=== PATIENT | male | born 1945 | race Caucasian/White ===

== ENCOUNTER 2020-07-14 21:59 | Inpatient (IN) | payer MEDICARE, SELFPAY ==
--- NOTE | ~2020-07-14 | XR_ITS ---
XR chest ET placement 07/14/2020 23:26 Indication: Respiratory distress. Patient intubation. Procedure: AP portable chest Comparison: No prior studies for comparison. Findings: Endotracheal tube tip 7.4 cm above the enma. Heart size normal. There is atherosclerosis. Mild pulmonary vascular congestion. No significant pleural effusion or pneumothorax. No acute osseou s abnormality. Impression: 1: Mild pulmonary vascular congestion. Reviewed, dictated and finalized at location A. Impression: 1: Mild pulmonary vascular congestion.
--- NOTE | ~2020-07-14 | XR_ITS ---
EXAMINATION: XR abdomen NG/feed tube insert DATE: 07/15/2020 01:30 INDICATION: Nasogastric tube placement TECHNIQUE: A supine view of the abdomen and lower chest was obtained for evaluation of feeding tube placement. COMPARISON: None. FINDINGS: Nasogastric tube tip in the body of the gas-filled stomach. Proximal side-port likely at the distal e sophagus. Gas-filled large and small bowel the visualized upper abdomen in a nonspecific bowel gas pa ttern. Visualized portions of the lungs are clear. Heart size is normal. IMPRESSION: 1. Nasogastric tube tip in the stomach. Reviewed, dictated and finalized at location A.
--- NOTE | ~2020-07-14 | XR_ITS ---
EXAMINATION: XR abdomen obstructive series DATE: 07/15/2020 08:14 INDICATION: This versus small bowel obstruction. TECHNIQUE: Frontal supine and upright views of the abdomen were obtained. COMPARISON: None. FINDINGS: Nasogastric tube tip in proximal side port in the body of the stomach. No dilated gas-filled loops of bowel. No free intraperitoneal gas. Visualized mid to lower lungs are clear. Heart size is normal. Postoperative changes with multiple clips project over the right pelvis in location suggesting prior inguinal hernia repair. Chronic proximal right femoral fracture with incompletely visualized antegra de intramedullary jayson and interlocking femoral neck screw fixation. Moderate to severe lumbar spondyl osis. Mild to moderate bilateral hip and sacroiliac osteoarthritis. IMPRESSION: 1. No free intraperitoneal gas or dilated gas-filled loops of bowel to suggest obstruction. Reviewed, dictated and finalized at location A.
--- NOTE | ~2020-07-14 | XR_ITS ---
EXAMINATION: XR chest ET placement DATE: 07/15/2020 02:31 INDICATION: Endotracheal tube placement TECHNIQUE: frontal view of the chest was obtained. COMPARISON: Chest radiograph dated 07/14/2020 at 11:25 PM FINDINGS: Endotracheal tube has been advanced with tip now 4.2 cm above the enma. Nasogastric tube extends b elow the left hemidiaphragm with distal tip collimated off the study. Skinfold projects over the late ral left lung. A few small calcified nodules in the right lower lung zone consistent with old granulo matous disease. No focal airspace opacities, pulmonary edema, pleural effusion or pneumothorax. The c ardiomediastinal silhouette is normal. IMPRESSION: 1. Endotracheal tube tip 4.2 cm above the enma. 2. No acute cardiopulmonary disease. Reviewed, dictated and finalized at location A.
--- NOTE | ~2020-07-14 | CT_ITS ---
EXAMINATION: CT brain wo con DATE: 07/14/2020 23:13 INDICATION: Unresponsive. TECHNIQUE: Computed tomography (CT) of the head was performed without intravenous contrast. The dose- length product was 681.00 mGy-cm. The mA was adjusted according to patient size. Iterative reconstruc tion technique was employed. COMPARISON: None FINDINGS: Generalized atrophy. There are scattered mild periventricular and subcortical white matter changes, most likely related to small vessel ischemic disease (microangiopathy). There is intracrania l atherosclerosis. Chronic left lacunar infarction involving the lentiform nucleus. Basilar cisterns are patent. No ventriculomegaly or midline shift. Paranasal sinuses and mastoids are pneumatized. No depressed skull fractures. IMPRESSION: 1. No acute intracranial abnormality. 2: Chronic left lacunar infarction. 3: Chronic age-related findings. Reviewed, dictated and finalized at location A.
--- NOTE | 2020-07-14 22:00 | PC.NURSE ---
On arrival pt having seizure activity. 2 mg ativan given per verbal order at 2200. MD exchanged ET tube for size 8Fr. 20mcg Etomadate and 50 mg Rocuronium per MD order for intubation at 2204. Propofol infusion started for sedation and griffin catheter placed per MD order. Pts daughter arrived at bedside.
--- NOTE | 2020-07-14 22:09 | ECG_ITS ---
Measurements Intervals [place] Rate: 105 P: 86 KS: 221 QRS: 69 QRSD: 81 T: 72 QT: 351 QTc: 465 Interpretive Statements SINUS TACHYCARDIA WITH FIRST DEGREE AV BLOCK FREQUENT ATRIAL PREMATURE COMPLEXES BORDERLINE ST ABNORMALITY- ANTEROLATERAL LEADS BASELINE ARTIFACT- V1-V2 ABNORMAL ECG Electronically Signed On 07-15-2020 7:39:06 CDT by Dariusz Villa D.O.
--- NOTE | 2020-07-14 22:09 | ED.AMS ---
HPI - Altered Mental Status General Chief Complaint: Altered Mental Status Stated Complaint: unresponsive History of Present Illness HPI narrative: History limited by unresponsive patient and acuity of medical condition He was at home drinking an alcoholic beverage when family noted that he leaned back and they thought he was sleeping. He may have had some seizure like activity. Per EMS HE was unresponsive on the way here and respiration became labored and they placed a Luis Carlos tube. Related Data Home Medications Medication Instructions Recorded Confirmed amlodipine 2.5 PO DAILY 07/14/20 pantoprazole 40 PO DAILY 07/14/20 ruxolitinib 10 mg BID 07/14/20 tamsulosin 0.4 mg PO DAILY 07/14/20 Allergies Allergy/AdvReac Type Severity Reaction Status Date / Time No Known Allergies Allergy Verified 07/14/20 22:34 Review of Systems Review of Systems: ROS unobtainable: Yes unobtainable due to medical condition and unobtainable due to mental status Exam Const: General: ill appearing chronically Other: Severe distresss HENMT: Other: Luis Carlos tube in place Eyes: Pupils: Equal, round and reactive pupils present Other: Eyes deviated to the Resp: Other: diminished breath sounds Cardio: Rate: tachycardic Rhythm: regular rhythm GI: GI Palp: Yes Soft to palpation Skin: General skin exam: normal color Neuro: Other: Unresponsive Extrem: General: no edema Course Course Emergency Course: ET tube advanced 4 cm after x-ray. Vital Signs Vital signs: Vital Signs Pulse Rate 129 H 07/14/20 22:20 Pulse Oximetry 100 07/14/20 22:20 Temperature 36.6 C 07/14/20 22:21 Pulse Rate 112 H 07/14/20 22:58 Respiratory Rate 20 07/14/20 22:58 Blood Pressure 143/99 H 07/14/20 22:58 Pulse Oximetry 100 07/14/20 22:58 Procedures Intubation Intubation #1: Intubation Date: 07/14/20 Intubation Time: 22:10 sedative: Etomidate Mg Given: 20 paralytic: Rocuronium Mg Given: 50 Laryngoscope: Tyra Tube Size (cm): Cuffed Method of Intubation: orotracheal Number of Attempts: 1 Tube Secured Location: lips Tube Placement Confirmation: visualized tube passing through cords, equal breath sounds bilaterally, no breath sounds over epigastrium and confirmation by capnometry Patient Tolerated Procedure: well Intubation Complications: none MDM - Altered Mental Status Medical Records Attestation: I reviewed the patient's medical records. Lab Data Attestation: I reviewed the patient's lab results. Result diagrams: 07/14/20 22:16 07/14/20 22:16 Labs: Lab Results 07/14/20 07/14/20 07/14/20 Range/Units 22:16 22:16 22:16 WBC 12.5 H (4.5-10.0) K/mm3 RBC 4.47 L (4.6-6.20) M/mm3 Hgb 10.2 L (14.0-18.0) g/dL Hct 36.0 L (42.0-52.0) % MCV 80.5 (80-100) fl MCH 22.8 L (26-34) pg MCHC 28.3 L (32-36) g/dl RDW 18.1 H (11.5-14.5) % Plt Count 572 H (150-375) k/mm3 MPV 10.2 (7.4-10.4) fl Immature Gran % (Auto) 0.8 H (0-0.5) % Neut % (Auto) 62.1 (45.5-73.1) % Lymph % (Auto) 19.5 (18.3-44.2) % Dodge % (Auto) 13.7 H (2.6-8.5) % Eos % (Auto) 2.5 (0-4.4) % Baso % (Auto) 1.4 H (0.2-1.2) % Lymph # (Auto) 2.44 (0.9-3.2) K/mm3 Dodge # (Auto) 1.7 H (0.1-0.6) K/mm3 Eos # (Auto) 0.3 (0-0.3) K/mm3 Baso # (Auto) 0.2 H (0.0-0.1) K/mm3 Abs Immat Gran (auto) 0.10 H (0.00-0.031) K/mm3 Absolute Neuts (auto) 7.8 H (1.3-6.7) K/mm3 Absolute Nucleated RBC 0.0 (0.0-0.012) K/mm3 Nucleated RBC % 0.0 (0.0-0.2) % Platelet Estimate Increased (Adequate) Hypochromasia 1+ (NORMAL) Anisocytosis 2+ (NORMAL) PT 14.1 (11.1-14.7) Seconds INR 1.1 APTT 25.5 (22.3-36.8) SECONDS Sodium 135 L (137-145) mmol/L Potassium 4.5 (3.4-5.0) mmol/L Chloride 99 (98-107) mmol/L Carbon Dioxide
[2020-07-14 22:13] VITALS: PULSE 129; RESP 20
[2020-07-14] MEDS: PROPOFOL IV EMULSION 100 ML 1.9 MG IV CONT (22:13)
[2020-07-14 22:20] VITALS: PULSE 129; O2SAT 100
[2020-07-14 22:21] VITALS: BP 175/118; PULSE 129; RESP 22; TEMP 36.6; O2SAT 100
[2020-07-14 22:27] LABS: Basophils Absolute Auto 0.2 K/mm3 (0.0-0.1); Basophils Percent Auto 1.4 % (0.2-1.2); Eosinophils Absolute Auto 0.3 K/mm3 (0-0.3); Eosinophils Percent Auto 2.5 % (0-4.4); Hemoglobin 10.2 g/dL (14.0-18.0); Immature Granulocyte Percent A 0.8 % (0-0.5); Lymphocytes Absolute Auto 2.44 K/mm3 (0.9-3.2); Lymphocytes Percent Auto 19.5 % (18.3-44.2); Mean Corpuscular HGB Conc 28.3 g/dl (32-36); Mean Corpuscular Hemoglobin 22.8 pg (26-34); Mean Corpuscular Volume 80.5 fl (80-100); Mean Platelet Volume 10.2 fl (7.4-10.4); Monocytes Absolute Auto 1.7 K/mm3 (0.1-0.6); Monocytes Percent Auto 13.7 % (2.6-8.5); Neutrophils Absolute Auto 7.8 K/mm3 (1.3-6.7); Neutrophils Percent Auto 62.1 % (45.5-73.1); Platelet Count Result 572 k/mm3 (150-375); Red Blood Count 4.47 M/mm3 (4.6-6.20); Red Cell Distribution Width 18.1 % (11.5-14.5); White Blood Count 12.5 K/mm3 (4.5-10.0)
[2020-07-14 22:30] VITALS: PULSE 120; RESP 20
[2020-07-14 22:33] LABS: INR 1.1; Partial Thromboplastin Time 25.5 SECONDS (22.3-36.8); Prothrombin Time 14.1 Seconds (11.1-14.7)
[2020-07-14 22:36] LABS: Ammonia 209 umol/L (9-30); Hypochromasia 1+ (NORMAL); Platelet Estimate Increased (Adequate)
[2020-07-14 22:36] LABS: Ethanol < 10 mg/dL (<10)
[2020-07-14 22:37] LABS: Anisocytosis 2+ (NORMAL)
[2020-07-14 22:40] LABS: Albumin Level 4.9 g/dL (3.5-5.1); Alkaline Phosphatase 72 U/L (38-126); Anion Gap 20 mmol/L (8-16); Aspartate Amino Transferase 43 U/L (17-59); Bilirubin,Total 0.6 mg/dL (0.2-1.3); Blood Urea Nitrogen 12 mg/dL (9-20); Calcium 8.9 mg/dL (8.4-10.2); Carbon Dioxide 16 mmol/L (22-30); Chloride 99 mmol/L (98-107); Estimated CRCL calculation 49 ml/min; Estimated Glomerular Filt Rate > 60; Glucose 242 mg/dL (75-110); Potassium 4.5 mmol/L (3.4-5.0); Sodium 135 mmol/L (137-145)
[2020-07-14 22:47] LABS: Alanine Aminotransferase 25 U/L (4-50)
[2020-07-14 22:58] VITALS: BP 143/99; PULSE 112; RESP 20; O2SAT 100
[2020-07-14 23:04] LABS: Glucose Point of Care 203 (65-105)
[2020-07-14 23:30] LABS: Add Urine Microscopic? YES; Appearance Urine Clear (Clear); Bacteria Urine Trace /hpf; Bilirubin Urine Negative (Negative); Blood Urine 1+ (Negative); Color Urine Straw (Yellow); Glucose Urine UA 2+ mg/dL (Negative); Ketones Urine Negative (Negative); Leukocyte Esterase Ur Negative LEU/UL (Negative); Mucus Urine Rare /lpf; Nitrate Urine Negative (Negative); Protein Urine 2+ mg/dL (Negative); RBC Urine 0-2 /hpf (0-2); Specific Grav Ur 1.012 (1.001-1.035); Squamous Epithelial Cell Urine Rare /hpf (Few); Urobilinogen Urine Negative mg/dL (<2.0); WBC Urine 0-3 /hpf
--- NOTE | 2020-07-14 23:39 | PM.IMHP ---
H&P: HPI History of Present Illness Date/Time: 07/14/20 23:39 Chief complaint: Acute respiratory failure, seizure, hyperamoniemia Narrative: This is a 74 year old male who was apparently at home drinking an alcoholic beverage when the family noticed that he was unresponsive. EMS was called and on arrival they found him with labored breathing. The patient was intubated on scene and brought to the hospital for evaluation. The patient was evaluated and found to have an elevated ammonia level of [address] brain was unremarkable for any acute pathology. There is no family at bedside and no further history is obtainable at this time. Research Recruiter, has been consulted. Review of Systems Review of Systems: ROS unobtainable: Yes unobtainable due to medical condition and unobtainable due to mental status PMFSH Past Medical History Medical History (Updated 07/15/20 @ 11:30 by Sachi Rivera MD) Alcohol abuse Alcohol abuse BPH (benign prostatic hyperplasia) COPD (chronic obstructive pulmonary disease) GERD (gastroesophageal reflux disease) Polycythemia vera Social History Social History Smoking packs per day: 1.5 Smoking cigarettes per day: 30.0 Years smoked: 60 Smoking pack-years: 90.00 Smoking status: Former smoker Smoking end date: 07/15/14 Alcohol intake: current Drinks per week: 20 Substance use: current Substance use type: painkillers Spiritual care concerns: No Comments Past medical/surgical/social/ family medical histories are unobtainable from the patient as the patient is intubated and sedated on mechanical ventilation. Meds Home Medications and Allergies Home Medications Medication Instructions Recorded Confirmed Type amlodipine 2.5 mg PO DAILY 07/14/20 07/15/20 History pantoprazole 40 mg PO DAILY 07/14/20 07/15/20 History ruxolitinib 10 mg PO BID 07/14/20 07/15/20 History tamsulosin 0.4 mg PO DAILY 07/14/20 07/15/20 History albuterol sulfate [Ventolin HFA] 1 inh INHALATION QID PRN 07/15/20 07/15/20 History Allergies Allergy/AdvReac Type Severity Reaction Status Date / Time No Known Allergies Allergy Verified 07/14/20 22:34 Vital Signs Vital Signs - 24 hr 07/14/20 22:20 07/14/20 22:21 07/14/20 22:58 Temperature 36.6 C Pulse Rate 129 H 129 H 112 H Respiratory Rate 22 H 20 Blood Pressure 175/118 H 143/99 H Pulse Oximetry 100 100 100 Exam Const: General: alert and other (Intubated on mechanical venatilation++ ) Nutritional Appearance: well nourished Orientation/consciousness: Other orientation findings (sedated on propofol+) HENMT: Head: normal to inspection General nose exam: Normal external nose present Face and sinus: normal facial exam Mouth: Yes other (ETT in place+ ) Eyes: Pupils: Equal, round and reactive pupils present Neck: Neck: supple and no JVD Thyroid: thyroid normal Resp: Effort & Inspection: normal respiratory effort Auscultation: bronchial breath sounds Cardio: Rate: regular rate Rhythm: regular rhythm Heart sounds: no murmurs GI: Inspection: normal to inspection Auscultation: normal bowel sounds Skin: General skin exam: normal color and no rashes or lesions noted Neuro: Cranial nerves: Yes Equal, round and reactive pupils present Extrem: General: normal to inspection and no edema H&P: Results Labs Labs: Short CBC 07/14/20 Range/Units 22:16 WBC 12.5 H (4.5-10.0) K/mm3 Hgb 10.2 L (14.0-18.0) g/dL Hct 36.0 L (42.0-52.0) % Plt Count 572 H (150-375) k/mm3 BMP 07/14/20 22:16 Sodium 135 L Potassium 4.5 Chloride 99 Carbon Dioxide 16 L BUN 12 Creatinine 1.00 Glucose 242 H Calcium 8.9 Liver Function 07/14/20 Range/Units 22:16 Total Bilirubin 0.6 (0.2-1.3) mg/dL AST 43 (17-59) U/L ALT 25 (4-50) U/L Alkaline Phosphatase 72 (38-126) U/L Albumin 4.9 (3.5-5.1) g/dL Urine 07/14/20 Range/Units 23:15 Urine Color Straw
[2020-07-14 23:43] LABS: Amphetamine Screen Urine Negative (Negative); Barbiturate Screen Urine Negative (Negative); Benzodiazepines Screen Urine Negative (Negative); Cannabinoid Screen Urine Negative (Negative); Cocaine Screen Urine Negative (Negative); Methadone Screen Urine Negative (Negative); Opiate Screen Urine Positive (Negative); Phencyclidine Screen Urine Negative (Negative)
[2020-07-15] VITALS (28 sets, daily range): BP systolic 77–122; BP diastolic 57–85; PULSE 66–108; RESP 5–21; TEMP 36.8–38; O2SAT 94–100; BMI 20.2
[2020-07-15] LABS: Troponin I 0.022 ng/mL (0.000-0.034)
[2020-07-15 00:18] LABS: Alveolar/Arterial O2 Gradient 208.6 mmHg; Base Excess ABG -7.6 mEq/l (+/-2.0); Fractional Inspired Oxygen 60 %; HCO3 ABG 17.6 mEq/l (22.0-26.0); Oxygen Content ABG 15.6 %vol (16.0-22.0); Oxygen Saturation ABG 99.1 % (95.0-100.0); Oxyhemoglobin 98.3 % THb (90.0-100.0); PCO2 ABG 34.8 mmHg (35.0-45.0); PO2 ABG 180.9 mmHg (80.0-100.0); PO2 FiO2 Ratio Arterial Blood 3.01 %; pH ABG 7.322 (7.350-7.450)
[2020-07-15 00:20] LABS: Device VENTILATOR; Site Drawn LEFT BRACHIAL
[2020-07-15 00:21] LABS: Arterial Blood Gas PEEP 5 cmH2O; Arterial Blood Gas Tidal Volume 400 ml; Arterial Blood Gas Vent Mode CMV; Arterial Blood Gas Ventilator rate 20 /MIN
[2020-07-15 00:23] LABS: Acetaminophen < 10 ug/mL (10-30); Magnesium 2.2 mg/dL (1.6-2.3); Phosphorus 4.7 mg/dL (2.5-4.5); Salicylate < 1.0 mg/dL (2-20)
[2020-07-15] MEDS: SODIUM CHLORIDE 0.9% IV 1,000 ML 999 ML IV CONT (01:03)
[2020-07-15] MEDS: LACTULOSE 20 GM/30 ML UDC 30 GM FEED TUBE ×2 (02:16→06:55)
[2020-07-15 02:17] LABS: Basophils Absolute Auto 0.1 K/mm3 (0.0-0.1); Basophils Percent Auto 0.6 % (0.2-1.2); Eosinophils Absolute Auto 0.1 K/mm3 (0-0.3); Eosinophils Percent Auto 0.4 % (0-4.4); Hematocrit 30.5 % (42.0-52.0); Hemoglobin 9.3 g/dL (14.0-18.0); Immature Granulocyte Absolute 0.05 K/mm3 (0.00-0.031); Immature Granulocyte Percent A 0.4 % (0-0.5); Lymphocytes Absolute Auto 0.69 K/mm3 (0.9-3.2); Lymphocytes Percent Auto 6.2 % (18.3-44.2); Mean Corpuscular HGB Conc 30.5 g/dl (32-36); Mean Corpuscular Hemoglobin 23.3 pg (26-34); Mean Corpuscular Volume 76.4 fl (80-100); Mean Platelet Volume 10.2 fl (7.4-10.4); Monocytes Absolute Auto 1.4 K/mm3 (0.1-0.6); Monocytes Percent Auto 12.4 % (2.6-8.5); Neutrophils Absolute Auto 8.9 K/mm3 (1.3-6.7); Platelet Count Result 414 k/mm3 (150-375); Red Blood Count 3.99 M/mm3 (4.6-6.20); White Blood Count 11.1 K/mm3 (4.5-10.0)
[2020-07-15 02:30] LABS: Hemoglobin A1C 5.3 % (<5.7)
[2020-07-15 02:33] LABS: Anion Gap 7 mmol/L (8-16); Blood Urea Nitrogen 13 mg/dL (9-20); Calcium 8.2 mg/dL (8.4-10.2); Carbon Dioxide 23 mmol/L (22-30); Chloride 103 mmol/L (98-107); Estimated CRCL calculation 49 ml/min; Estimated Glomerular Filt Rate > 60; Glucose 114 mg/dL (75-110); Sodium 133 mmol/L (137-145)
[2020-07-15] MEDS: LACTATED RINGERS 1,000 ML 125 ML IV CONT (02:38)
[2020-07-15 02:47] LABS: Glucose Point of Care 114 (65-105)
[2020-07-15 03:35] LABS: Folic Acid 16.5 ng/mL (2.76->20)
[2020-07-15] MEDS: SODIUM CHLORIDE 0.9% IV 500 ML 999 ML IV CONT (03:55)
[2020-07-15 04:15] LABS: Alveolar/Arterial O2 Gradient 139.6 mmHg; Base Excess ABG -5.6 mEq/l (+/-2.0); Fractional Inspired Oxygen 40 %; HCO3 ABG 18.9 mEq/l (22.0-26.0); Oxygen Content ABG 13.3 %vol (16.0-22.0); Oxygen Saturation ABG 97.8 % (95.0-100.0); Oxyhemoglobin 96.5 % THb (90.0-100.0); PCO2 ABG 33.6 mmHg (35.0-45.0); PO2 FiO2 Ratio Arterial Blood 2.67 %; Total Hemoglobin 9.7 g/dL (12.0-18.0); pH ABG 7.369 (7.350-7.450)
[2020-07-15 04:16] LABS: Arterial Blood Gas Ventilator rate 20 /MIN; Device VENTILATOR; Modified Allen's Test Pass; Site Drawn RIGHT RADIAL
[2020-07-15 04:17] LABS: Arterial Blood Gas PEEP 5 cmH2O; Arterial Blood Gas Pressure Support 0 cmH2O; Arterial Blood Gas Tidal Volume 400 ml; Arterial Blood Gas Vent Mode CMV
--- NOTE | 2020-07-15 04:24 | ADMGEN ---
This patient, Sebastián Recinos, was admitted to Intensive Care Unit-12. Patient/family oriented to hospital policies and general routines including ID bracelet, bed and alarms, visiting hours, pain management, procedures, bathroom and other care routines, personal items, smoking policy, room service/diet, and visiting hours. Valuables list has been completed. Information on how to activate the Rapid Response Team has been discussed. Patient/Family are encouraged to report perceived risks to care and to ask questions if they do not understand what they are told or what they should do.
[2020-07-15 06:03] LABS: Glucose Point of Care 100 (65-105)
[2020-07-15 06:20] LABS: Hematocrit 29.6 % (42.0-52.0); Hemoglobin 8.8 g/dL (14.0-18.0)
[2020-07-15 06:46] LABS: Lactic Acid Reflex 1.3 mmol/L (0.7-2.1)
[2020-07-15 08:44] LABS: Ammonia < 9 umol/L (9-30)
[2020-07-15] MEDS: SODIUM CHLORIDE 0.9% IV 500 ML IV CONT (08:48)
[2020-07-15] MEDS: rifAXIMin 550 MG TABLET PO ×2 (08:53→21:16)
[2020-07-15 09:11] LABS: Hematocrit 29.1 % (42.0-52.0); Hemoglobin 8.6 g/dL (14.0-18.0)
--- NOTE | 2020-07-15 09:34 | WPDCNINT ---
Assessment and Plan Assessment and plan (1) Acute respiratory failure: Qualifiers: Respiratory failure complication: hypoxia Qualified Code(s): J96.01 - Acute respiratory failure with hypoxia Code(s): J96.00 - Acute respiratory failure, unspecified whether with hypoxia or hypercapnia Status: Acute Assessment and Plan: patient with acute respiratory failure due to patient's altered mental status and unable to protect airway. - Currently on CMV mode of ventilation, 40% FiO2, peep of 5. Switched to ASV mode of ventilation - patient currently on fentanyl and Versed infusion, will discontinue sedation and place patient on SBT and evaluate for extubation (2) Acute encephalopathy: Code(s): G93.40 - Encephalopathy, unspecified Status: Acute Assessment and Plan: acute encephalopathy likely related to hyperammonemia of unknown cause, LFTs within normal limits, patient has chronic alcohol use and could be developing some liver dysfunction. GI bleed as he is anemic (3) Hyperammonemia: Code(s): E72.20 - Disorder of urea cycle metabolism, unspecified Status: Acute Assessment and Plan: hyperammonemia rate to chronic alcohol use, GI bleed, narcotics ( his drug screen was positive for opiates) - initial ammonia levels 209, patient was given IV fluid bolus, lactulose and rifaximin - repeat ammonia level this morning <9 (4) Polycythemia vera: Code(s): D45 - Polycythemia vera Status: Acute Assessment and Plan: On Ruxolinitib (5) SIRS (systemic inflammatory response syndrome): Code(s): R65.10 - Systemic inflammatory response syndrome (SIRS) of non-infectious origin without acute organ dysfunction Status: Acute Assessment and Plan: patient initially with altered mental status, tachypnea, tachycardia and mild leukocytosis. - No clear source of infection can be identified - blood cultures have been obtained - UA was unremarkable - lactic acid is normal - no antibiotics at this time (6) Abnormal glucose: Code(s): R73.09 - Other abnormal glucose Status: Acute Assessment and Plan: abnormal glucose on admission, could be stress related - blood sugars this morning have improved - hemoglobin A1c is 5.3 (7) DVT prophylaxis: Code(s): Z29.9 - Encounter for prophylactic measures, unspecified Status: Acute Assessment and Plan: DVT prophylaxis: Lovenox (8) Anemia: Qualifiers: Anemia type: unspecified type Qualified Code(s): D64.9 - Anemia, unspecified Code(s): D64.9 - Anemia, unspecified Status: Acute Assessment and Plan: patient with anemia, will obtain stool for occult blood, iron panel - could be related to alcohol use - low MCV - continue monitor hemoglobin (9) Alcohol abuse: Code(s): F10.10 - Alcohol abuse, uncomplicated Status: Acute Assessment and Plan: history of alcohol use, patient's daughter says he drinks 2-.3 beers and 1 1/2 shots of bourbon for many years - Start patient on thiamine and folic acid - will watch for withdrawal once patient is extubated (10) GERD (gastroesophageal reflux disease): Qualifiers: Esophagitis presence: esophagitis presence not specified Qualified Code(s): K21.9 - Gastro-esophageal reflux disease without esophagitis Code(s): K21.9 - Gastro-esophageal reflux disease without esophagitis Status: Acute Assessment and Plan: started on Protonix (11) COPD (chronic obstructive pulmonary disease): Qualifiers: COPD type: unspecified COPD Qualified Code(s): J44.9 - Chronic obstructive pulmonary disease, unspecified Code(s): J44.9 - Chronic obstructive pulmonary disease, unspecified Status: Acute Assessment and Plan: Patient has history of COPD, on 3 L oxygen at home add bronchodilators Additional Plan discuss with daughter, William segura
[2020-07-15 09:57] LABS: Valproic Acid < 10.0 ug/mL (50-120)
[2020-07-15] MEDS: FOLIC ACID 1 MG/0.2 ML INJ IV PUSH (12:10)
[2020-07-15] MEDS: THIAMINE HCL 200 MG/2 ML VIAL 100 MG IV PUSH (12:10)
[2020-07-15] MEDS: ENOXAPARIN 40 MG/0.4 ML SYRINGE SUB-Q (12:10)
[2020-07-15] MEDS: PANTOPRAZOLE SODIUM IV 40 MG VIAL IV PUSH ×2 (12:13→20:35)
[2020-07-15] MEDS: LACTATED RINGERS 1,000 ML 75 ML IV CONT (12:18)
[2020-07-15 12:19] LABS: Glucose Point of Care 95 (65-105)
[2020-07-15 12:45] LABS: Alveolar/Arterial O2 Gradient 149.5 mmHg; Base Excess ABG -7.4 mEq/l (+/-2.0); Fractional Inspired Oxygen 40 %; HCO3 ABG 17.7 mEq/l (22.0-26.0); Oxygen Content ABG 13.8 %vol (16.0-22.0); Oxyhemoglobin 95.9 % THb (90.0-100.0); PCO2 ABG 34.1 mmHg (35.0-45.0); PO2 ABG 96.5 mmHg (80.0-100.0); PO2 FiO2 Ratio Arterial Blood 2.41 %; Total Hemoglobin 10.1 g/dL (12.0-18.0); pH ABG 7.333 (7.350-7.450)
[2020-07-15 12:46] LABS: Device VENTILATOR; Modified Allen's Test Pass; Site Drawn LEFT RADIAL
[2020-07-15 12:47] LABS: Arterial Blood Gas PEEP 5 cmH2O; Arterial Blood Gas Pressure Support 8 cmH2O; Arterial Blood Gas Vent Mode SPONTANEOUS
[2020-07-15] MEDS: IPRATROPIUM BR 0.02% INH SOLN 0.5 MG/2.5 ML VIAL INHALATION ×2 (13:30→20:05)
[2020-07-15] MEDS: ALBUTEROL SULFATE NEB 2.5 MG/0.5 ML INH INHALATION ×2 (13:30→20:05)
[2020-07-15 14:12] LABS: Hematocrit 28.3 % (42.0-52.0); Hemoglobin 8.3 g/dL (14.0-18.0)
[2020-07-15 17:51] LABS: Glucose Point of Care 80 (65-105)
[2020-07-15] MEDS: DEXTROSE 5%/0.9% SOD CHL 1,000 ML 75 ML IV CONT (18:17)
--- NOTE | 2020-07-15 18:20 | PM.IMPN ---
Progress Note: A&P Assessment and Plan (1) Acute encephalopathy: Code(s): G93.40 - Encephalopathy, unspecified Status: Acute Assessment and Plan: May be secondary to hepatic encephalopathy and elevated ammonia. r/o metabolic encephalopathy. Check electrolytes, metabolic parameters with the TSH and B12 unremarkable CT brain was unremarkable for acute pathology. The patient may also have had an acute seizure as his family reported observing him having seizure like activity? [employer], Dr. Rivera has been consulted by ER provider.. Once the patient is awake and extubated we will be able to do a better assessment of his current mental status. (2) Acute respiratory failure: Qualifiers: Respiratory failure complication: hypoxia Qualified Code(s): J96.01 - Acute respiratory failure with hypoxia Code(s): J96.00 - Acute respiratory failure, unspecified whether with hypoxia or hypercapnia Status: Acute Assessment and Plan: The patient was intubated on site secondary to poor breathing. Continue ventilatory support, we will sedate the patient with versed and fentanyl. . Wean off of verntilator when possible. (3) Hyperammonemia: Code(s): E72.20 - Disorder of urea cycle metabolism, unspecified Status: Acute Assessment and Plan: Continue Lactulose q6 hrs and Xifaxin. and follow LFTs are not elevated and INR is normal (4) SIRS (systemic inflammatory response syndrome): Code(s): R65.10 - Systemic inflammatory response syndrome (SIRS) of non-infectious origin without acute organ dysfunction Status: Acute Assessment and Plan: w/ tachycardia, tachypnea, and mild leukocytosis. At this time the patient has no clear source of any infection at this time and does not appear infected. We will obtain blood cultures. (5) Seizure: Code(s): R56.9 - Unspecified convulsions Status: Acute Assessment and Plan: seziure precautions. We will treat any acute seizure with benzodiazepines. consider neurology consult in am. (6) Normocytic anemia: Code(s): D64.9 - Anemia, unspecified Status: Acute Assessment and Plan: Acute vs. Chronic?? The patient may be having an occult GI bleed. Check FOBT, (7) Thrombocytosis: Code(s): D47.3 - Essential (hemorrhagic) thrombocythemia Status: Acute Assessment and Plan: May be reactive. Monitor platelets. (8) Metabolic acidosis with increased anion gap and accumulation of organic acids: Code(s): E87.2 - Acidosis Status: Acute Assessment and Plan: May be secondary to acute seizure? Monitor acid-base status. . We will consider that the patient may also have alcoholic ketoacidosis given his history of alcohol use. (9) Abnormal glucose: Code(s): R73.09 - Other abnormal glucose Status: Acute Assessment and Plan: HgbA1c. only 5.3 and follow-up blood sugars decreased Subjective Date/time seen: 07/15/20 18:21 Interval history: date of visit 07/15. 74-year-old white male found down with by EMS in respiratory distress intubated and transported to ER. Ammonia elevated with encephalopathy admitted to ICU. This a.m. still sedated on a ventilator. Further history daughter relates on chronic oxygen 3 L nasal cannula and drinks at least 3 to 6 beers a day Exam Narrative: Exam Narrative: blood pressure 106/70 pulse 66 sat 100% on FiO2 35% with 5 of peep temp 38? pupils equal reactive sclera anicteric neck supple no adenopathy thyromegaly carotid bruits lungs appear clear CV regular rate rhythm abdomen is soft no guarding bowel sounds normal active extremities without edema distal pulses 1+ at best neuro sedated at present time on a ventilator Objective Data Vital Signs Vital Signs: Vital Signs - 24 hr 07/14/20 22:13 07/14/20 22:20 07/14/20 22:21 Temperature 36.6 C Pulse Rate 129 H 129 H 129 H Respiratory Rate 20 22 H Bloo
[2020-07-15] MEDS: BENZOCAINE/MENTHOL (*BKC) 18 EA LOZENGE 1 LOZENGE PO (21:41)
[2020-07-15 21:46] LABS: Hematocrit 28.8 % (42.0-52.0); Hemoglobin 8.4 g/dL (14.0-18.0)
[2020-07-15 22:24] LABS: IFOB Positive Control Positive; Immunochemical Fecal Occult Bl Negative (N)
[2020-07-16] VITALS (16 sets, daily range): BP systolic 93–126; BP diastolic 49–67; PULSE 76–108; RESP 14–20; TEMP 37–37.3; O2SAT 91–99
[2020-07-16 01:58] LABS: Glucose Point of Care 113 (65-105)
[2020-07-16] MEDS: IPRATROPIUM BR 0.02% INH SOLN 0.5 MG/2.5 ML VIAL INHALATION ×4 (02:00→21:15)
[2020-07-16] MEDS: ALBUTEROL SULFATE NEB 2.5 MG/0.5 ML INH INHALATION ×4 (02:00→21:15)
[2020-07-16 04:21] LABS: Basophils Absolute Auto 0.1 K/mm3 (0.0-0.1); Basophils Percent Auto 0.8 % (0.2-1.2); Eosinophils Absolute Auto 0.1 K/mm3 (0-0.3); Eosinophils Percent Auto 1.2 % (0-4.4); Hematocrit 28.7 % (42.0-52.0); Hemoglobin 8.5 g/dL (14.0-18.0); Immature Granulocyte Absolute 0.03 K/mm3 (0.00-0.031); Immature Granulocyte Percent A 0.4 % (0-0.5); Lymphocytes Absolute Auto 0.52 K/mm3 (0.9-3.2); Lymphocytes Percent Auto 6.2 % (18.3-44.2); Mean Corpuscular HGB Conc 29.6 g/dl (32-36); Mean Corpuscular Hemoglobin 22.8 pg (26-34); Mean Corpuscular Volume 77.2 fl (80-100); Mean Platelet Volume 10.1 fl (7.4-10.4); Monocytes Absolute Auto 1.6 K/mm3 (0.1-0.6); Monocytes Percent Auto 19.3 % (2.6-8.5); Neutrophils Percent Auto 72.1 % (45.5-73.1); Platelet Count Result 321 k/mm3 (150-375); Red Blood Count 3.72 M/mm3 (4.6-6.20); Red Cell Distribution Width 18.2 % (11.5-14.5); White Blood Count 8.3 K/mm3 (4.5-10.0)
[2020-07-16 04:37] LABS: Ammonia < 9 umol/L (9-30)
[2020-07-16 04:39] LABS: Alanine Aminotransferase 14 U/L (4-50); Albumin Level 3.6 g/dL (3.5-5.1); Alkaline Phosphatase 53 U/L (38-126); Anion Gap 5 mmol/L (8-16); Aspartate Amino Transferase 35 U/L (17-59); Bilirubin,Total 0.8 mg/dL (0.2-1.3); Blood Urea Nitrogen 9 mg/dL (9-20); Calcium 8.2 mg/dL (8.4-10.2); Carbon Dioxide 25 mmol/L (22-30); Chloride 106 mmol/L (98-107); Estimated CRCL calculation 62 ml/min; Estimated Glomerular Filt Rate > 60; Glucose 111 mg/dL (75-110); Magnesium 1.9 mg/dL (1.6-2.3); Phosphorus 2.1 mg/dL (2.5-4.5); Potassium 3.2 mmol/L (3.4-5.0); Sodium 136 mmol/L (137-145)
[2020-07-16 06:15] LABS: Helmet Cells 1+ (NORMAL); Hypochromasia 3+ (NORMAL); Ovalocytes 2+ (NORMAL); Platelet Estimate Adequate (Adequate); Polychromasia 2+ (NORMAL)
[2020-07-16] MEDS: DEXTROSE 5%/0.9% SOD CHL 1,000 ML 75 ML IV CONT (06:47)
[2020-07-16] MEDS: BENZOCAINE/MENTHOL (*BKC) 18 EA LOZENGE 1 LOZENGE PO ×3 (08:11→22:09)
[2020-07-16] MEDS: rifAXIMin 550 MG TABLET PO (08:12)
[2020-07-16] MEDS: PANTOPRAZOLE SODIUM IV 40 MG VIAL IV PUSH ×2 (08:13→22:04)
[2020-07-16] MEDS: FOLIC ACID 1 MG/0.2 ML INJ IV PUSH (08:14)
[2020-07-16] MEDS: THIAMINE HCL 200 MG/2 ML VIAL 100 MG IV PUSH (08:16)
[2020-07-16] MEDS: POTASSIUM PHOS,M-BASIC-D-BASIC 20 MMOL in SODIUM CHLORIDE 0.9% IV 250 ML 62.5 MMOL IVPB (08:38)
--- NOTE | 2020-07-16 08:38 | WPDGICN ---
Assessment and Plan Assessment and plan (1) Alcohol abuse: Code(s): F10.10 - Alcohol abuse, uncomplicated Status: Acute Assessment and Plan: Patient has a long history of alcohol abuse. Suspicious that he may have underlying liver disease. Although liver function tests are currently normal. His elevated ammonia raises the question of underlying cirrhosis. Plan is to continue lactulose. Consider CT scan and/or ultrasound to evaluate liver disease. (2) Polycythemia vera: Code(s): D45 - Polycythemia vera Status: Acute Assessment and Plan: Patient with a longstanding history of polycythemia. He has received therapy under the direction [facility] . Likely this treatment contributes to his current anemia. Continued follow-up but [facility] encourage. (3) Hyperammonemia: Code(s): E72.20 - Disorder of urea cycle metabolism, unspecified Status: Acute Assessment and Plan: Elevated in ammonia along with his confusion at that time raises question for elevated underlying liver disease. Agree with continuing lactulose. Consider a CT scan of the abdomen to evaluate for possible liver disease. (4) GERD (gastroesophageal reflux disease): Qualifiers: Esophagitis presence: esophagitis presence not specified Qualified Code(s): K21.9 - Gastro-esophageal reflux disease without esophagitis Code(s): K21.9 - Gastro-esophageal reflux disease without esophagitis Status: Acute (5) Anemia: Qualifiers: Anemia type: unspecified type Qualified Code(s): D64.9 - Anemia, unspecified Code(s): D64.9 - Anemia, unspecified Status: Acute Assessment and Plan: Anemia. Likely related to treatment for his polycythemia vera. Stools noted to be Hemoccult negative. No obvious signs of GI blood loss noted. GI Consult Note Consult date/time: 07/16/20 08:38 HPI: Sebastián Recinos is a 74 year old male Seen in evaluation at the request of the cement sack breaker service. Patient has a long history of heavy alcohol intake. States he was drinking whiskey. Apparently passed out. He was apparently found by AE and treated by EMS period was found to be in respiratory distress. Intubated in the field and sent to the emergency room. Ammonia level was noted to be markedly elevated. Patient subsequently was admitted to the intensive care unit. He improved yesterday afternoon and was able to be extubated. He states that he drinks vodka rather heavily and has done so for many years. He may have been told that he had liver disease in the past. He is somewhat uncertain of that fact. In the past he has been treated for polycythemia rubra vera. She is followed by site [facility] receives of medication on a routine basis. He apparently has had blood testing fairly regularly as well. Review of Systems Review of Systems: All systems reviewed & are unremarkable except as noted in HPI and below [facility] Past Medical History Medical History Alcohol abuse Alcohol abuse BPH (benign prostatic hyperplasia) COPD (chronic obstructive pulmonary disease) GERD (gastroesophageal reflux disease) Polycythemia vera Social History Social History Smoking packs per day: 1.5 Smoking cigarettes per day: 30.0 Years smoked: 60 Smoking pack-years: 90.00 Smoking status: Former smoker Smoking end date: 07/15/14 Alcohol intake: current Drinks per week: 20 Substance use: current Substance use type: painkillers Spiritual care concerns: No Meds Home Medications and Allergies Home Medications Medication Instructions Recorded Confirmed Type amlodipine 2.5 mg PO DAILY 07/14/20 07/15/20 History pantoprazole 40 mg PO DAILY 07/14/20 07/15/20 History ruxolitinib 10 mg PO BID 07/14/20 07/15/20 History tamsulosin 0.4
--- NOTE | 2020-07-16 11:09 | WPDINTPN ---
Progress Note: A&P Assessment and Plan (1) Acute respiratory failure: Qualifiers: Respiratory failure complication: hypoxia Qualified Code(s): J96.01 - Acute respiratory failure with hypoxia Code(s): J96.00 - Acute respiratory failure, unspecified whether with hypoxia or hypercapnia Status: Acute Assessment and Plan: patient with acute respiratory failure due to patient's altered mental status and unable to protect airway. intubated on 07/06/2020 - successfully extubated on 07/15/2020 - on 1 L nasal cannula with good O2 sat (2) Acute encephalopathy: Code(s): G93.40 - Encephalopathy, unspecified Status: Acute Assessment and Plan: RESOLVED: acute encephalopathy likely related to hyperammonemia of unknown cause, LFTs within normal limits, patient has chronic alcohol use and could be developing some liver dysfunction. GI bleed as he is anemic (3) Hyperammonemia: Code(s): E72.20 - Disorder of urea cycle metabolism, unspecified Status: Acute Assessment and Plan: AMMONIA <9 on 2 occasions hyperammonemia rate to chronic alcohol use, GI bleed, narcotics ( his drug screen was positive for opiates) , GI bleed, liver dysfunction - initial ammonia levels 209, patient was given IV fluid bolus, - repeat ammonia level <9 x2 days - appreciate GI evaluation and recommendation, continue lactulose (4) Polycythemia vera: Code(s): D45 - Polycythemia vera Status: Acute Assessment and Plan: restart Ruxolinitib (5) SIRS (systemic inflammatory response syndrome): Code(s): R65.10 - Systemic inflammatory response syndrome (SIRS) of non-infectious origin without acute organ dysfunction Status: Acute Assessment and Plan: patient initially with altered mental status, tachypnea, tachycardia and mild leukocytosis. - No clear source of infection can be identified - blood cultures have been obtained - UA was unremarkable - lactic acid is normal - no antibiotics at this time (6) Abnormal glucose: Code(s): R73.09 - Other abnormal glucose Status: Acute Assessment and Plan: abnormal glucose on admission, could be stress related - blood sugars this morning have improved - hemoglobin A1c is 5.3 (7) DVT prophylaxis: Code(s): Z29.9 - Encounter for prophylactic measures, unspecified Status: Acute Assessment and Plan: DVT prophylaxis: Lovenox (8) Anemia: Qualifiers: Anemia type: unspecified type Qualified Code(s): D64.9 - Anemia, unspecified Code(s): D64.9 - Anemia, unspecified Status: Acute Assessment and Plan: patient with anemia, will obtain stool for occult blood, iron panel - could be related to alcohol use - low MCV - continue monitor hemoglobin (9) Alcohol abuse: Code(s): F10.10 - Alcohol abuse, uncomplicated Status: Acute Assessment and Plan: history of alcohol use, patient's daughter says he drinks 2-.3 beers and 1 1/2 shots of bourbon for many years - continue thiamine and folic acid - will watch for withdrawal once patient is extubated (10) GERD (gastroesophageal reflux disease): Qualifiers: Esophagitis presence: esophagitis presence not specified Qualified Code(s): K21.9 - Gastro-esophageal reflux disease without esophagitis Code(s): K21.9 - Gastro-esophageal reflux disease without esophagitis Status: Acute Assessment and Plan: continue Protonix (11) COPD (chronic obstructive pulmonary disease): Qualifiers: COPD type: unspecified COPD Qualified Code(s): J44.9 - Chronic obstructive pulmonary disease, unspecified Code(s): J44.9 - Chronic obstructive pulmonary disease, unspecified Status: Acute Assessment and Plan: Patient has history of COPD, on 3 L oxygen at home continue bronchodilators Additional Plan discussed with patient updated with his conditi
[2020-07-16] MEDS: POTASSIUM CHLORIDE 20 MEQ TABLET 40 MEQ PO (11:15)
[2020-07-16] MEDS: TAMSULOSIN HCL 0.4 MG CAPSULE PO (12:24)
--- NOTE | 2020-07-16 16:44 | PM.IMPN ---
Progress Note: A&P Assessment and Plan (1) Acute encephalopathy: Code(s): G93.40 - Encephalopathy, unspecified Status: Acute Assessment and Plan: . r/o metabolic encephalopathy. TSH normal and neg tox screen. CT brain was unremarkable for acute pathology. The patient may also have had an acute seizure as his family reported observing him having seizure like activity? I.. Neuro exam normalized to continue to observe (2) Acute respiratory failure: Qualifiers: Respiratory failure complication: hypoxia Qualified Code(s): J96.01 - Acute respiratory failure with hypoxia Code(s): J96.00 - Acute respiratory failure, unspecified whether with hypoxia or hypercapnia Status: Acute Assessment and Plan: The patient was intubated on site secondary to poor breathing. easily extubated 07/15 and continues to do quite well on 1 L nasal cannula (3) Hyperammonemia: Code(s): E72.20 - Disorder of urea cycle metabolism, unspecified Status: Acute Assessment and Plan: Continue Lactulose q.12 hours and DC rifaximin . (4) SIRS (systemic inflammatory response syndrome): Code(s): R65.10 - Systemic inflammatory response syndrome (SIRS) of non-infectious origin without acute organ dysfunction Status: Acute Assessment and Plan: w/ tachycardia, tachypnea, and mild leukocytosis. At this time the patient has no clear source of any infection at this time and does not appear infected. We will obtain blood cultures. Close monitoring of vital signs and urine output and check reflex lactic acid. (5) Seizure: Code(s): R56.9 - Unspecified convulsions Status: Acute Assessment and Plan: seziure precautions. We will treat any acute seizure with benzodiazepines. consider neurology consult in am. (6) Normocytic anemia: Code(s): D64.9 - Anemia, unspecified Status: Acute Assessment and Plan: Acute vs. Chronic?? The patient may be having an occult GI bleed. Check FOBT, M CV toward low side so check iron studies ferritin (7) Thrombocytosis: Code(s): D47.3 - Essential (hemorrhagic) thrombocythemia Status: Acute Assessment and Plan: May be reactive. Monitor platelets. (8) Metabolic acidosis with increased anion gap and accumulation of organic acids: Code(s): E87.2 - Acidosis Status: Acute Assessment and Plan: May be secondary to acute seizure? Monitor acid-base status. IV fluids. Check ABG. We will consider that the patient may also have alcoholic ketoacidosis given his history of alcohol use. (9) Abnormal glucose: Code(s): R73.09 - Other abnormal glucose Status: Acute Assessment and Plan: r/o Diabetes mellitus. Accuchecks, SSI coverage, HgbA1c. only 5.3 and blood sugar 88 this a.m. (10) Alcohol abuse: Code(s): F10.10 - Alcohol abuse, uncomplicated Status: Acute Assessment and Plan: no signs of any withdrawal. Continue thiamin daily and p.r.n. benzo diazepam Subjective Date/time seen: 07/16/20 16:44 Interval history: date of visit 07/16. 74-year-old white male found down with by EMS in respiratory distress intubated and transported to ER. Ammonia elevated with encephalopathy admitted to ICU. This a.m. alert and oriented Further history daughter relates on chronic oxygen 3 L nasal cannula and drinks at least 3 to 6 beers a day Extubated 07/15 Exam Narrative: Exam Narrative: blood pressure 126/66 pulse 82 sat 92% on 1 L NC pupils equal reactive sclera anicteric neck supple no adenopathy thyromegaly carotid bruits lungs appear clear distant CV regular rate rhythm abdomen is soft no guarding bowel sounds normal active extremities without edema distal pulses 1+ at best Objective Data Vital Signs Vital Signs: Vital Signs - 24 hr 07/15/20 18:00 07/15/20 20:00 07/15/20 20:05 Temperature 37.1 C Pulse Rate 89 92 85 Respiratory Rate 18 18
[2020-07-16] MEDS: FLUTICASONE PROPIONATE 0.05% NA SPR 16 GM BTL (*BKC) 1 SPRAY NASAL (17:24)
--- NOTE | 2020-07-16 18:55 | PC.NURSE ---
This patient, Sebastián Recinos, was received from ICU on 07/16/20 at 1855.Report received from Raquel NINO. Personal belongings list checked and signed. Patient/family oriented to unit policies and routines
[2020-07-16 19:15] LABS: Hematocrit 29.6 % (42.0-52.0); Hemoglobin 8.9 g/dL (14.0-18.0)
[2020-07-16] MEDS: LACTULOSE 20 GM/30 ML UDC 15 GM BY MOUTH (22:04)
[2020-07-17] VITALS (12 sets, daily range): BP systolic 122–126; BP diastolic 57–88; PULSE 56–99; RESP 16–22; TEMP 36.6–37.3; O2SAT 94–100; BMI 20.5
[2020-07-17] MEDS: ALBUTEROL SULFATE NEB 2.5 MG/0.5 ML INH INHALATION ×4 (03:00→19:29)
[2020-07-17] MEDS: IPRATROPIUM BR 0.02% INH SOLN 0.5 MG/2.5 ML VIAL INHALATION ×4 (03:00→19:28)
[2020-07-17 06:42] LABS: Basophils Absolute Auto 0.1 K/mm3 (0.0-0.1); Basophils Percent Auto 0.8 % (0.2-1.2); Eosinophils Absolute Auto 0.2 K/mm3 (0-0.3); Hematocrit 28.3 % (42.0-52.0); Hemoglobin 8.5 g/dL (14.0-18.0); Immature Granulocyte Absolute 0.03 K/mm3 (0.00-0.031); Immature Granulocyte Percent A 0.4 % (0-0.5); Lymphocytes Absolute Auto 0.47 K/mm3 (0.9-3.2); Lymphocytes Percent Auto 6.4 % (18.3-44.2); Mean Corpuscular Hemoglobin 22.7 pg (26-34); Mean Corpuscular Volume 75.5 fl (80-100); Mean Platelet Volume 10.3 fl (7.4-10.4); Monocytes Absolute Auto 1.5 K/mm3 (0.1-0.6); Monocytes Percent Auto 20.5 % (2.6-8.5); Neutrophils Absolute Auto 5.1 K/mm3 (1.3-6.7); Neutrophils Percent Auto 69.9 % (45.5-73.1); Platelet Count Result 315 k/mm3 (150-375); Red Blood Count 3.75 M/mm3 (4.6-6.20); Red Cell Distribution Width 18.5 % (11.5-14.5); White Blood Count 7.3 K/mm3 (4.5-10.0)
[2020-07-17 06:54] LABS: Alanine Aminotransferase 14 U/L (4-50); Albumin Level 3.6 g/dL (3.5-5.1); Alkaline Phosphatase 52 U/L (38-126); Anion Gap 6 mmol/L (8-16); Aspartate Amino Transferase 34 U/L (17-59); Bilirubin,Total 0.7 mg/dL (0.2-1.3); Blood Urea Nitrogen 7 mg/dL (9-20); Calcium 8.4 mg/dL (8.4-10.2); Carbon Dioxide 24 mmol/L (22-30); Chloride 106 mmol/L (98-107); Estimated CRCL calculation 63 ml/min; Estimated Glomerular Filt Rate > 60; Glucose 99 mg/dL (75-110); Potassium 3.3 mmol/L (3.4-5.0); Sodium 136 mmol/L (137-145)
[2020-07-17 06:55] LABS: Phosphorus 2.6 mg/dL (2.5-4.5)
[2020-07-17 07:28] LABS: Hypochromasia 1+ (NORMAL); Platelet Estimate Adequate (Adequate)
[2020-07-17 07:29] LABS: Acanthocytes 1+ (NORMAL); Anisocytosis 1+ (NORMAL); Helmet Cells 1+ (NORMAL); Ovalocytes 2+ (NORMAL); Poikilocytosis 2+ (NORMAL)
[2020-07-17 08:06] LABS: Iron 23 ug/dL (49-181)
[2020-07-17 08:16] LABS: Percent Iron Saturation 6 % (20-50)
[2020-07-17] MEDS: POTASSIUM CHLORIDE 20 MEQ TABLET 40 MEQ PO (08:50)
[2020-07-17] MEDS: ENOXAPARIN 40 MG/0.4 ML SYRINGE SUB-Q (08:50)
[2020-07-17] MEDS: FLUTICASONE PROPIONATE 0.05% NA SPR 16 GM BTL (*BKC) 1 SPRAY NASAL ×2 (08:50→20:37)
[2020-07-17] MEDS: LACTULOSE 20 GM/30 ML UDC 15 GM BY MOUTH (08:51)
[2020-07-17] MEDS: TAMSULOSIN HCL 0.4 MG CAPSULE PO (08:52)
[2020-07-17] MEDS: THIAMINE HCL 100 MG TABLET PO (08:52)
[2020-07-17] MEDS: PANTOPRAZOLE SODIUM IV 40 MG VIAL IV PUSH ×2 (08:52→20:37)
--- NOTE | 2020-07-17 09:39 | WPDGIPROGNO ---
Progress Note: A&P Additional Plan Patient more alert today. Appears oriented. Denies abdominal pain. No bleeding reported. Physical exam reveals patient to be alert. Anicteric. Lungs are clear. Heart without murmur. Abdomen soft nontender with no organomegaly. Stool reported be heme-negative. Hemoglobin 8.5 stable. Impression 1. Encephalopathy. Now improved. Initially with elevated ammonia raising the question for underlying alcoholic liver disease. Continue supportive care. Lactulose advised. 2. Alcohol abuse. Patient likely has underlying alcoholic liver disease. LFTs stable at this time. 3. Microcytic anemia. Plan is check iron studies. Stools heme-negative. Would recommend supportive care. Likely related to bone marrow suppression from alcohol use. Patient also has had treatment for polycythemia this likely contributes to his ongoing anemia. 4. Polycythemia vera. Treated by Oncology Service. Currently followed at [facility]. Subjective Date/time seen: 07/17/20 09:39 Objective Data Vital Signs Vital Signs: Vital Signs - 24 hr 07/16/20 10:00 07/16/20 14:11 07/16/20 14:22 Temperature Pulse Rate 98 90 88 Respiratory Rate 20 20 Blood Pressure Pulse Oximetry 07/16/20 16:00 07/16/20 21:15 07/16/20 21:25 Temperature 98.8 F Pulse Rate 86 86 88 Respiratory Rate 14 20 20 Blood Pressure 126/67 Pulse Oximetry 92 07/16/20 22:00 07/16/20 22:32 07/17/20 03:04 Temperature 99.1 F Pulse Rate 108 H 86 Respiratory Rate 16 20 Blood Pressure 123/67 Pulse Oximetry 92 91 07/17/20 03:11 07/17/20 06:00 07/17/20 08:15 Temperature 99.1 F Pulse Rate 88 56 L 60 Respiratory Rate 20 16 20 Blood Pressure 122/67 Pulse Oximetry 100 94 07/17/20 08:24 Temperature Pulse Rate 68 Respiratory Rate 20 Blood Pressure Pulse Oximetry Intake/Output Intake/Output: Intake & Output 07/14/20 07/15/20 07/16/20 07/17/20 23:59 23:59 23:59 23:59 Intake Total 3455 2254.867 500 Output Total 1600 1250 250 Balance 1855 1004.867 250 Meds/Results Medications: Active Medications Generic Name Dose Route Start Last Admin Trade Name Freq PRN Reason Stop Dose Admin Albuterol 2.5 mg 07/15/20 14:00 07/17/20 08:15 Albuterol Sulf Neb 2.5mg/0.5ml INHALATION 2.5 mg Q6HRT EMMY Administration Benzocaine 1 lozenge 07/15/20 18:10 07/16/20 22:09 Chloraseptic Lozenge PO 1 lozenge PRN PRN Administration Sore Throat Dextrose 12.5 gm 07/14/20 23:45 Dextrose 50% Syringe IV PUSH PRN PRN Hypoglycemia Protocol Enoxaparin Sodium 40 mg 07/15/20 11:00 07/17/20 08:50 Lovenox SUB-Q 40 mg DAILY EMMY Administration Fluticasone Propionate 1 spray 07/16/20 21:00 07/17/20 08:50 Flonase 0.05% Nasal [place] NASAL 1 spray Q12HR EMMY Administration Folic Acid 1 mg 07/15/20 11:00 07/16/20 08:14 Folic Acid Inj IV PUSH 1 mg QAM EMMY Administration Glucagon 1 mg 07/14/20 23:45 Glucagon For Inj IM PRN PRN Hypoglycemia Protocol Dextrose 1,000 mls @ 100 mls/hr 07/14/20 23:45 Dextrose 5% 1,000 Ml IVPB PRN PRN Hypoglycemia Protocol Ipratropium [place] 0.5 mg 07/15/20 14:00 07/17/20 08:15 Atrovent Neb INHALATION 0.5 mg Q6HRT EMMY Administration Lactulose 15 gm 07/16/20 21:00 07/17/20 08:51 Lactulose BY MOUTH 15 gm Q12HR EMMY Administration Non-Formulary Medication 10 mg 07/16/20 17:00 Ruxolitinib PO 08/15/20 17:01 BID EMMY Pantoprazole Sodium 40 mg 07/15/20 11:00 07/17/20 08:52 Protonix Iv IV PUSH 40 mg Q12HR EMMY Administration Tamsulosin HCl 0.4 mg 07/16/20 09:00 07/17/20 08:52 Flomax PO 0.4 mg DAILY EMMY Administration Thiamine HCl 100 mg 07/17/20 09:00 07/17/20 08:52 Vitamin B-1 PO 100 mg QAM EMYM Administration Radiology Results: ITS Impressions Head CT 07/14/20 23:17 IMPRESSION:
[2020-07-17] MEDS: FOLIC ACID 1 MG/0.2 ML INJ IV PUSH (10:06)
--- NOTE | 2020-07-17 18:59 | PHAR ---
JAKAFI 10MG BID HOME MED VERIFIED
--- NOTE | 2020-07-17 22:38 | PM.IMPN ---
Progress Note: A&P Assessment and Plan (1) Acute encephalopathy: Code(s): G93.40 - Encephalopathy, unspecified Status: Acute Assessment and Plan: . metabolic encephalopathy, GI feels hepatic encephalopathy . TSH normal and neg tox screen. CT brain was unremarkable for acute pathology. The patient may also have had an acute seizure as his family reported observing him having seizure like activity? I.. Neuro exam normalized but still some confusion with no evidence of ETOH withdrawal (2) Acute respiratory failure: Qualifiers: Respiratory failure complication: hypoxia Qualified Code(s): J96.01 - Acute respiratory failure with hypoxia Code(s): J96.00 - Acute respiratory failure, unspecified whether with hypoxia or hypercapnia Status: Acute Assessment and Plan: The patient was intubated on site secondary to poor breathing. easily extubated 07/15 and continues to do quite well on 1-2 L nasal cannula (3) Hyperammonemia: Code(s): E72.20 - Disorder of urea cycle metabolism, unspecified Status: Acute Assessment and Plan: Continue Lactulose q.12 hours , thought hepatic enceph. (4) SIRS (systemic inflammatory response syndrome): Code(s): R65.10 - Systemic inflammatory response syndrome (SIRS) of non-infectious origin without acute organ dysfunction Status: Acute Assessment and Plan: w/ tachycardia, tachypnea, and mild leukocytosis. At this time the patient has no clear source of any infection at this time and does not appear infected. blood cultures neg and lactic acid.normal (5) Seizure: Code(s): R56.9 - Unspecified convulsions Status: Acute Assessment and Plan: seziure precautions. but none apparent, ? Etoh seizure (6) Normocytic anemia: Code(s): D64.9 - Anemia, unspecified Status: Acute Assessment and Plan: Acute vs. Chronic?? FOBT,neg iron studies compatible with iron deficiency anemia and GI feels he may have been over treated for his polycythemia (7) Thrombocytosis: Code(s): D47.3 - Essential (hemorrhagic) thrombocythemia Status: Acute Assessment and Plan: May be reactive. Monitor platelets. (8) Metabolic acidosis with increased anion gap and accumulation of organic acids: Code(s): E87.2 - Acidosis Status: Acute Assessment and Plan: quickly corrected with no obvious source (9) Abnormal glucose: Code(s): R73.09 - Other abnormal glucose Status: Acute Assessment and Plan: Accuchecks, SSI coverage, HgbA1c. only 5.3 and blood sugar remained normal. (10) Alcohol abuse: Code(s): F10.10 - Alcohol abuse, uncomplicated Status: Acute Assessment and Plan: no signs of any withdrawal. other than his confusion Continue thiamin daily and p.r.n. benzo diazepam with more confusion this afternoon still concerned about possible withdrawal and will monitor another 24-48 hours Subjective Date/time seen: 07/17/20 22:38 Interval history: date of visit 07/17. 74-year-old white male found down with by EMS in respiratory distress intubated and transported to ER. Ammonia elevated with encephalopathy admitted to ICU. This a.m. alert and oriented Further history daughter relates on chronic oxygen 3 L nasal cannula and drinks at least 3 to 6 beers a day Extubated 07/15 no new complaints Exam Narrative: Exam Narrative: blood pressure 124/60 pulse 80 sat 96% on 2 L NC pupils equal reactive sclera anicteric neck supple no adenopathy thyromegaly carotid bruits lungs appear clear distant CV regular rate rhythm abdomen is soft no guarding bowel sounds normal active extremities without edema distal pulses 1+ at best neuro alert with no focal deficits and oriented x4 but later in conversation with nursing relates to his as if she was still living and his children needing to participate in some type of sports activit
[2020-07-18] VITALS (9 sets, daily range): BP systolic 134–147; BP diastolic 86–93; PULSE 67–120; RESP 18–20; TEMP 36.8–37; O2SAT 94–99
[2020-07-18] MEDS: IPRATROPIUM BR 0.02% INH SOLN 0.5 MG/2.5 ML VIAL INHALATION ×3 (01:16→14:24)
[2020-07-18] MEDS: ALBUTEROL SULFATE NEB 2.5 MG/0.5 ML INH INHALATION ×3 (01:16→14:24)
[2020-07-18 06:23] LABS: Basophils Percent Auto 0.7 % (0.2-1.2); Eosinophils Absolute Auto 0.1 K/mm3 (0-0.3); Hematocrit 28.7 % (42.0-52.0); Hemoglobin 8.7 g/dL (14.0-18.0); Immature Granulocyte Absolute 0.01 K/mm3 (0.00-0.031); Immature Granulocyte Percent A 0.2 % (0-0.5); Lymphocytes Absolute Auto 0.79 K/mm3 (0.9-3.2); Lymphocytes Percent Auto 13.3 % (18.3-44.2); Mean Corpuscular HGB Conc 30.3 g/dl (32-36); Mean Corpuscular Hemoglobin 22.8 pg (26-34); Mean Corpuscular Volume 75.1 fl (80-100); Mean Platelet Volume 10.4 fl (7.4-10.4); Monocytes Absolute Auto 1.1 K/mm3 (0.1-0.6); Monocytes Percent Auto 17.9 % (2.6-8.5); Neutrophils Absolute Auto 3.9 K/mm3 (1.3-6.7); Neutrophils Percent Auto 65.9 % (45.5-73.1); Platelet Count Result 338 k/mm3 (150-375); Red Blood Count 3.82 M/mm3 (4.6-6.20); Red Cell Distribution Width 18.9 % (11.5-14.5); White Blood Count 5.9 K/mm3 (4.5-10.0)
[2020-07-18 06:40] LABS: Anion Gap 7 mmol/L (8-16); Blood Urea Nitrogen 8 mg/dL (9-20); Calcium 8.8 mg/dL (8.4-10.2); Carbon Dioxide 26 mmol/L (22-30); Chloride 103 mmol/L (98-107); Estimated CRCL calculation 59 ml/min; Estimated Glomerular Filt Rate > 60; Glucose 101 mg/dL (75-110); Potassium 3.9 mmol/L (3.4-5.0); Sodium 136 mmol/L (137-145)
[2020-07-18] MEDS: ENOXAPARIN 40 MG/0.4 ML SYRINGE SUB-Q (09:46)
[2020-07-18] MEDS: FLUTICASONE PROPIONATE 0.05% NA SPR 16 GM BTL (*BKC) 1 SPRAY NASAL (09:46)
--- NOTE | 2020-07-18 09:46 | WPDGIPROGNO ---
Progress Note: A&P Additional Plan Patient alert more oriented. Tolerating diet. Physical exam reveals patient be alert. Vital signs stable. He is anicteric. Lungs are clear. Heart without murmur. Abdomen is soft and nontender. Labs reveal hemoglobin 8.7, hematocrit 28.7, MCV 75. Stool heme negative during this hospital stay. Impression 1. Resolved encephalopathy. Ammonia elevated at admission. Agree with lactulose. Cannot exclude underlying liver disease. 2. Alcohol abuse. Alcohol avoidance encourage. 3. Polycythemia vera. Status post treatment. 4. Anemia. Likely related to treatment for polycythemia. Stool heme-negative. GI endoscopy can be considered as an outpatient electively. Subjective Date/time seen: 07/18/20 09:46 Objective Data Vital Signs Vital Signs: Vital Signs - 24 hr 07/17/20 14:00 07/17/20 14:03 07/17/20 14:11 Temperature 97.8 F Pulse Rate 99 80 84 Respiratory Rate 20 20 20 Blood Pressure 123/57 L Pulse Oximetry 96 07/17/20 19:30 07/17/20 19:33 07/17/20 19:38 Temperature Pulse Rate 67 67 70 Respiratory Rate 22 H 22 H 22 H Blood Pressure Pulse Oximetry 95 07/17/20 22:00 07/18/20 01:19 07/18/20 01:26 Temperature 98.7 F Pulse Rate 82 120 H 100 Respiratory Rate 18 20 20 Blood Pressure 126/88 Pulse Oximetry 95 07/18/20 05:53 07/18/20 08:20 07/18/20 08:31 Temperature 98.6 F Pulse Rate 67 88 86 Respiratory Rate 18 20 20 Blood Pressure 147/93 H Pulse Oximetry 97 07/18/20 08:32 Temperature Pulse Rate 85 Respiratory Rate 20 Blood Pressure Pulse Oximetry 94 Intake/Output Intake/Output: Intake & Output 07/15/20 07/16/20 07/17/20 07/18/20 23:59 23:59 23:59 23:59 Intake Total 3455 2254.867 2020 740 Output Total 1600 1250 400 600 Balance 1855 0320.834 0024 140 Meds/Results Medications: Active Medications Generic Name Dose Route Start Last Admin Trade Name Freq PRN Reason Stop Dose Admin Acetaminophen/Codeine Phosphate 1 tab 07/18/20 09:41 Tylenol #3 PO Q6H PRN Pain Rated 4-6 Albuterol 2.5 mg 07/15/20 14:00 07/18/20 08:30 Albuterol Sulf Neb 2.5mg/0.5ml INHALATION 2.5 mg Q6HRT EMMY Administration Benzocaine 1 lozenge 07/15/20 18:10 07/16/20 22:09 Chloraseptic Lozenge PO 1 lozenge PRN PRN Administration Sore Throat Dextrose 12.5 gm 07/14/20 23:45 Dextrose 50% Syringe IV PUSH PRN PRN Hypoglycemia Protocol Enoxaparin Sodium 40 mg 07/15/20 11:00 07/17/20 08:50 Lovenox SUB-Q 40 mg DAILY EMMY Administration Fluticasone Propionate 1 spray 07/16/20 21:00 07/17/20 20:37 Flonase 0.05% Nasal [place] NASAL 1 spray Q12HR EMMY Administration Folic Acid 1 mg 07/15/20 11:00 07/17/20 10:06 Folic Acid Inj IV PUSH 1 mg QAM EMMY Administration Glucagon 1 mg 07/14/20 23:45 Glucagon For Inj IM PRN PRN Hypoglycemia Protocol Dextrose 1,000 mls @ 100 mls/hr 07/14/20 23:45 Dextrose 5% 1,000 Ml IVPB PRN PRN Hypoglycemia Protocol Ipratropium [place] 0.5 mg 07/15/20 14:00 07/18/20 08:30 Atrovent Neb INHALATION 0.5 mg Q6HRT EMMY Administration Lactulose 15 gm 07/18/20 09:00 Lactulose BY MOUTH QAM EMMY Pantoprazole Sodium 40 mg 07/15/20 11:00 07/17/20 20:37 Protonix Iv IV PUSH 40 mg Q12HR EMMY Administration Tamsulosin HCl 0.4 mg 07/16/20 09:00 07/17/20 08:52 Flomax PO 0.4 mg DAILY EMMY Administration Thiamine HCl 100 mg 07/17/20 09:00 07/17/20 08:52 Vitamin B-1 PO 100 mg QAM EMMY Administration Radiology Results: ITS Impressions Head CT 07/14/20 23:17 IMPRESSION: 1. No acute intracranial abnormality. 2: Chronic left lacunar infarction. 3: Chronic age-related findings. Abdomen X-Ray 07/15/20 11:13 IMPRESSION: 1. Nasogastric tube tip in the stomach. Chest X-Ray 07/15/20 11:50 IMPRESSION: 1. Endotracheal tube tip 4
[2020-07-18] MEDS: LACTULOSE 20 GM/30 ML UDC 15 GM BY MOUTH (09:47)
[2020-07-18] MEDS: FOLIC ACID 1 MG/0.2 ML INJ IV PUSH (09:49)
[2020-07-18] MEDS: TAMSULOSIN HCL 0.4 MG CAPSULE PO (09:49)
[2020-07-18] MEDS: PANTOPRAZOLE SODIUM IV 40 MG VIAL IV PUSH (09:49)
[2020-07-18] MEDS: THIAMINE HCL 100 MG TABLET PO (09:52)
--- NOTE | 2020-07-18 11:30 | NEURO_ITS ---
TEST: ELECTROENCEPHALOGRAM DIAGNOSIS: SEIZURE PATIENT NUMBER: [id number] EEG NUMBER: [id number] RECORDING DATE: 07/18/20 CONDITION OF RECORDING: Awake, drowsy and sleep EEG DESCRIPTION: Basic resting occipital frequency consists of minimal amount of poorly organized low voltage 11-13hz alpha mixed with low voltage 15-21hz beta. During drowsiness low voltage beta activity is seen diffusely mixed with waxing and waning posterior alpha rhythms. Multiple movement and muscle artifacts noted throughout the tracing. Bilateral symmetrical sleep activity is seen during sleep. Hyperventilation and photic stimulation were not done. Nonparoxysmal. Nonfocal. Nonlateralizing. IMPRESSION: No significant abnormalities noted. MTDD
--- NOTE | 2020-07-18 15:15 | PM.DS ---
DS: Admitting Diagnosis Admitting Diagnosis Admitting Diagnosis: Acute respiratory failure, seizure, hyperamoniemia DS: Discharge Diagnosis Discharge Diagnosis (1) Acute encephalopathy: Code(s): G93.40 - Encephalopathy, unspecified Status: Acute Assessment and Plan: Patient presents with metabolic encephalopathy felt hepatic encephalopathy. TSH normal and Tox screen positive for opiates (patient takes T#3 at home) o/w negative. CT brain was unremarkable for acute pathology. The patient may also have had an acute seizure as his family reported observing him having seizure like activity. Confusion has resolved. Abstaining from alcohol imperative. Ammonia level 209 but improved on repeat. (2) Acute respiratory failure: Qualifiers: Respiratory failure complication: hypoxia Qualified Code(s): J96.01 - Acute respiratory failure with hypoxia Code(s): J96.00 - Acute respiratory failure, unspecified whether with hypoxia or hypercapnia Status: Acute Assessment and Plan: The patient was intubated on site secondary to poor breathing. He was able to be extubated 07/15. He was weaned to 1L O2 nasal cannula. He states he uses 1L at rest and 4L with exertion at home. (3) Hyperammonemia: Code(s): E72.20 - Disorder of urea cycle metabolism, unspecified Status: Acute Assessment and Plan: Ammonia level 209 but normal on repeat the next day. [place] he had hepatic encephalopathy. Treated with Lactulose. Symptoms resolved. (4) SIRS (systemic inflammatory response syndrome): Code(s): R65.10 - Systemic inflammatory response syndrome (SIRS) of non-infectious origin without acute organ dysfunction Status: Acute Assessment and Plan: Present on admission w/ tachycardia, tachypnea, and mild leukocytosis. Lactic acid level normal. No clear source of any infection. BCx NGTD. CXR showing no concern for PNA. UA clear. (5) Seizure: Code(s): R56.9 - Unspecified convulsions Status: Acute Assessment and Plan: Possible seizure. Seziure precautions ordered but no apparent recurrence. Possible Etoh withdrawal seizure. (6) Normocytic anemia: Code(s): D64.9 - Anemia, unspecified Status: Acute Assessment and Plan: Acute vs. Chronic. Patient does have Polycythemia Vera and is receiving treatment for this. FOBT negative. GI was following along. Iron studies compatible with iron deficiency anemia. GI feels he may have been over treated for his PCV. Will discharge home with iron x 1 month. 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 (7) Thrombocytosis: Code(s): D47.3 - Essential (hemorrhagic) thrombocythemia Status: Acute Assessment and Plan: [place] to be reactive. Repeat levels normal. (8) Metabolic acidosis with increased anion gap and accumulation of organic acids: Code(s): E87.2 - Acidosis Status: Acute Assessment and Plan: Metabolic gap acidosis that quickly corrected. Possibly related to seizure. (9) Abnormal glucose: Code(s): R73.09 - Other abnormal glucose Status: Acute Assessment and Plan: Glucose in the 200's but A1c 5.3. He was monitored with Accuchecks and covered with SSI. Glucose became better controlled. (10) Alcohol abuse: Code(s): F10.10 - Alcohol abuse, uncomplicated Status: Acute Assessment and Plan: No signs of alcohol withdrawal. Confusion resolved. Treated with thiamin daily and p.r.n. benzo diazepam. Educated about the benefits of abstaining from alcohol. Called family but no answer at the phone number listed. (11) COPD (chronic obstructive pulmonary disease): Qualifiers: COPD type: unspecified COPD Qualified Code(s): J44.9 - Chronic obstructive pulmonary disease, unspecified Code(s): J44.9 - Chronic obstructive pulmonary disease, unspecified
--- NOTE | 2020-07-27 14:10 | PC.NURSE ---
No significant abnormalities noted. Dr. Sakshi sierra.
== END 2020-07-18 17:30 | disposition home or self-care (01) | DRG 432 ==
LOC: ANHED 07-15 00:02 → ANH3MEDSUR 07-17 11:15 → ANHICU 07-20 11:58
PROVIDERS: Internal Medicine; Admitting Provider Family Medicine; Emergency Provider Emergency Medicine; Visit Provider Internal Medicine
DX: K70.40 Alcoholic hepatic failure without coma (principal); G93.41 Metabolic encephalopathy; J96.00 Acute respiratory failure, unspecified whether with hypoxia or hypercapnia; R65.10 Systemic inflammatory response syndrome (SIRS) of non-infectious origin without acute organ dysfunction; E72.20 Disorder of urea cycle metabolism, unspecified; F10.230 Alcohol dependence with withdrawal, uncomplicated; G40.89 Other seizures; E87.2 Acidosis; N40.0 Benign prostatic hyperplasia without lower urinary tract symptoms; D45 Polycythemia vera; D47.3 Essential (hemorrhagic) thrombocythemia; R73.09 Other abnormal glucose; J44.9 Chronic obstructive pulmonary disease, unspecified; D50.9 Iron deficiency anemia, unspecified; K70.9 Alcoholic liver disease, unspecified; F10.20 Alcohol dependence, uncomplicated; K21.9 Gastro-esophageal reflux disease without esophagitis; Z87.891 Personal history of nicotine dependence; Z99.81 Dependence on supplemental oxygen
CPT/HCPCS: 31500; 36415; 36600; 51702; 70450; 74019; 80048; 80053; 80164; 80307; 81001; 82140; 82274; 82607; 82728; 82746; 82805; 82948; 83036; 83540; 83550; 83605; 83735; 84100; 84443; 84484; 85014; 85018; 85025; 85610; 85730; 87040; 93005; 94640; 95816; 96365; 96375; 97110; 97161; 97165; 99291; A9270; C9113; J1650; J2060; J2250; J2704; J3010; J3411; J7030; J7040; J7042; J7050; J7120

== ENCOUNTER 2020-07-29 20:44 | Inpatient (IN) | payer MEDICARE, SELFPAY ==
--- NOTE | ~2020-07-29 | XR_ITS ---
XR chest 1V portable 07/29/2020 22:10 Indication: Shortness of breath, fever and confusion. History of COPD. Procedure: AP portable chest Comparison: 07/15/2020 Findings: There are emphysematous changes. Heart size normal. Chronic interstitial infiltrates in the lung bases. Small right pleural effusion. No pneumothorax. No acute osseous abnormality. Heart size normal. Atherosclerosis of the aorta. Impression: 1: Chronic mild interstitial infiltrates of the mid and lower lungs which may represent fibrosis and/ or mild edema. Reviewed, dictated and finalized at location A. Impression: 1: Chronic mild interstitial infiltrates of the mid and lower lungs which may r epresent fibrosis and/or mild edema.
--- NOTE | ~2020-07-29 | XR_ITS ---
XR chest 1V portable 08/04/2020 10:59 Indication: Shortness of breath. Respiratory failure. Fever. Procedure: AP portable chest Comparison: Comparison to multiple prior studies sequentially, with oldest reviewed study dated 07/14. Findings: Bibasilar airspace disease, compatible with pneumonia. The lungs are hyperinflated which is consistent with, but not diagnostic of chronic obstructive pulmonary disease. Heart size is normal. No pleural effusion or pneumothorax. No acute osseous abnormality. Impression: 1: Bibasilar airspace disease, compatible with pneumonia. Reviewed, dictated and finalized at location B. Impression: 1: Bibasilar airspace disease, compatible with pneumonia.
--- NOTE | ~2020-07-29 | XR_ITS ---
XR chest 1V portable 08/11/2020 06:02 Indication: Pneumonia Procedure: AP portable chest Comparison: Comparison to multiple prior studies sequentially, with oldest reviewed study dated 08/04. Findings: Heart size normal. PICC line tip in the SVC. The lungs are hyperinflated which is consisten t with, but not diagnostic of chronic obstructive pulmonary disease. There is bibasilar airspace dise ase, compatible with pneumonia. No significant pleural effusion or pneumothorax. No acute osseous abn ormality. Impression: 1: Persistent bibasilar airspace disease, consistent with pneumonia. Reviewed, dictated and finalized at location A. Impression: 1: Persistent bibasilar airspace disease, consistent with pneumonia.
--- NOTE | ~2020-07-29 | XR_ITS ---
EXAMINATION: XR chest 1V portable DATE: 08/07/2020 06:45 INDICATION: COVID-19 pneumonia. TECHNIQUE: A single frontal view of the chest was obtained. COMPARISON: Chest single view 08/06/2020, 07/14/2020 FINDINGS: The lungs are hyperexpanded with lucencies, consistent with emphysema. There are airspace o pacities in the mid and lower lung zones. No pleural effusion or pneumothorax. The heart size is norm al. A right upper extremity peripherally inserted central venous catheter (PICC) is seen with tip in the superior vena cava. The nasogastric tube tip is beyond the inferior margin of the radiograph, but at least to the stomach. IMPRESSION: 1. Stable airspace opacities in the mid and lower lung zones, consistent with COVID-19 pneumonia. 2. Emphysema. Reviewed, dictated and finalized at location A. IMPRESSION: 1. Stable airspace opacities in the mid and lower lung zones, consistent with C OVID-19 pneumonia. 2. Emphysema.
--- NOTE | ~2020-07-29 | XR_ITS ---
XR chest 1V portable DATE: 08/06/2020 05:35 INDICATION: Shortness of breath TECHNIQUE: Portable AP chest on 08/06/2020 at 0529 hours COMPARISON: 08/05/2020 portable AP chest at 0516 hours 07/29/2020 portable AP chest 08/03/2020 portable AP chest FINDINGS: Prominent bilateral hyperinflation consistent with COPD. Persistent interstitial infiltrate s are noted in the mid and lower lung zones; differential diagnosis includes interstitial fibrosis, i nterstitial edema and/or interstitial pneumonitis. NG tube in gastric fundus. Right upper extremity PIC catheter tip overlies the superior vena cava. No pneumothorax. Diffuse osteopenia. IMPRESSION: COPD and persistent interstitial pneumonitis, edema and/or fibrosis Reviewed, dictated and finalized at location A.
--- NOTE | ~2020-07-29 | XR_ITS ---
EXAMINATION: XR chest 1V portable EXAM DATE: 08/03/2020 05:32 INDICATION: Respiratory failure. Shortness of breath fever and cough. TECHNIQUE: Portable AP frontal chest x-ray was obtained. Comparison is made to prior examination from 07/29/2020. FINDINGS: Moderate chronic hyperinflation. Possible mild chronic interstitial lung disease. The lungs are otherwise clear. There are no pleural effusions. Cardiomediastinal silhouette is normal. Ther e is no pneumothorax suspected. There are mild bony degenerative changes. There is aortic arterioscl erosis. IMPRESSION: 1. No acute cardiopulmonary findings. 2. Possible mild chronic interstitial lung disease. 3. Hyperinflation. Reviewed, dictated and finalized at location A.
--- NOTE | ~2020-07-29 | XR_ITS ---
XR chest PICC line 08/04/2020 14:51 Indication: PICC line adjustment Procedure: AP portable chest Comparison: Comparison to multiple prior studies sequentially, with oldest reviewed study dated 07/29. Findings: Right subclavian PICC line has been retracted, tip in the SVC. NG tube in the stomach. Pers istent bibasilar airspace disease, compatible with pneumonia. Small pleural effusions. Impression: 1: PICC line has been retracted, tip in the mid SVC. Otherwise, no change. Reviewed, dictated and finalized at location B. Impression: 1: PICC line has been retracted, tip in the mid SVC. Otherwise, no change.
--- NOTE | ~2020-07-29 | XR_ITS ---
EXAMINATION: XR abdomen NG/feed tube insert DATE: 08/04/2020 11:15 INDICATION: Nasogastric tube placement TECHNIQUE: A supine view of the abdomen and lower chest was obtained for evaluation of feeding tube placement. COMPARISON: 07/15/2020 FINDINGS: Nasogastric tube tip in proximal side port in the body of the stomach. Multiple gas-filled loops of b owel in the abdomen consistent with ileus or small bowel obstruction. Opacities in the bilateral lowe r lung zones. Heart size is normal. IMPRESSION: 1. Nasogastric tube in stomach. 2. Multiple gas filled loops of bowel which could represent ileus or obstruction. 3. Bibasilar opacities which could represent atelectasis, pneumonia or mild pulmonary edema. Reviewed, dictated and finalized at location A. IMPRESSION: 1. Nasogastric tube in stomach. 2. Multiple gas filled loops of bowel which could represent ileus or obstructio n. 3. Bibasilar opacities which could represent atelectasis, pneumonia or mild pul monary edema.
--- NOTE | ~2020-07-29 | XR_ITS ---
XR chest 1V portable DATE: 08/05/2020 06:11 INDICATION: Covid infection TECHNIQUE: Portable AP chest on 08/05/2020 at 0516 hours COMPARISON: 08/04/2020 portable AP chest at 1416 hours FINDINGS: A nasogastric tube is noted in the gastric fundus. Right upper cavity PICC catheter tip overlies the superior vena cava. Bilateral hyperinflation consistent with COPD. There are persistent infiltrates in the mid and lower lung zones, relatively stable since 08/04/2020. Heart size appears within normal limits. Is aortic calcification. Diffuse osteopenia. IMPRESSION: No significant change since 08/04/2020 at 1416 hours Reviewed, dictated and finalized at location A.
--- NOTE | ~2020-07-29 | CT_ITS ---
EXAMINATION: CT brain wo con DATE: 08/07/2020 09:56 INDICATION: Confusion. TECHNIQUE: Computed tomography (CT) of the head was performed without intravenous contrast. The mA wa s adjusted according to patient size. Iterative reconstruction technique was employed. The dose-lengt h product was 681.00 mGy-cm. COMPARISON: Head CT 07/14/2020 FINDINGS: There are scattered areas of low attenuation in the cerebral white matter. There is no intr acranial hemorrhage, acute infarction, or abnormal intracranial mass lesion. The ventricles are erica l in size. The orbits are normal. There is mucosal thickening in the paranasal sinuses and fluid in r ight maxillary sinus and right frontal sinus. The mastoid air cells are normal. IMPRESSION: 1. Stable mild nonspecific cerebral white matter disease, which likely represents chronic small vesse l ischemic disease. Reviewed, dictated and finalized at location A. IMPRESSION: 1. Stable mild nonspecific cerebral white matter disease, which likely represen ts chronic small vessel ischemic disease.
--- NOTE | ~2020-07-29 | XR_ITS ---
XR chest PICC line 08/04/2020 14:23 Indication: PICC line adjustment. Respiratory distress. Procedure: AP portable chest Comparison: Comparison to multiple prior studies sequentially, with oldest reviewed study dated 07/15. Findings: PICC line tip near the cavoatrial junction. NG tube passes into the stomach. Progression of bibasilar airspace disease, compatible with pneumonia. Small pleural effusions. No pneumothorax.. Impression: 1: Progression of airspace disease predominantly affecting the lung bases, compatible with pneumonia. 2: Small pleural effusions. Reviewed, dictated and finalized at location B. Impression: 1: Progression of airspace disease predominantly affecting the lung bases, comp atible with pneumonia. 2: Small pleural effusions.
--- NOTE | 2020-07-29 20:47 | ECG_ITS ---
Measurements Intervals [place] Rate: 100 P: MS: 0 QRS: 77 QRSD: 89 T: 116 QT: 354 QTc: 458 Interpretive Statements ATRIAL FIBRILLATION WITH RAPID VENTRICULAR RESPONSE VENTRICULAR PREMATURE COMPLEX BORDERLINE ST ABNORMALITY- ANTEROLATERAL LEADS BASELINE ARTIFACT- I, II, III, AVR, AVL, AVF, V2-V6 ABNORMAL ECG Electronically Signed On 07-30-2020 8:04:03 CDT by Dariusz Villa D.O.
[2020-07-29 20:49] VITALS: BP 153/69; PULSE 98; RESP 27; TEMP 38.4; O2SAT 90
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
[2020-07-29] MEDS: SODIUM CHLORIDE 0.9% IV 1,000 ML 999 ML IV CONT ×2 (20:53→21:40)
[2020-07-29 21:04] VITALS: PULSE 79; RESP 22; O2SAT 90
--- NOTE | 2020-07-29 21:11 | PC.NURSE ---
ems states pt hasn't been taking his lactulose.
[2020-07-29 21:16] LABS: Hematocrit 31.1 % (42.0-52.0); Hemoglobin 9.5 g/dL (14.0-18.0); Immature Granulocyte Absolute 0.06 K/mm3 (0.00-0.031); Lymphocytes Absolute Auto 0.16 K/mm3 (0.9-3.2); Lymphocytes Percent Auto 2.7 % (18.3-44.2); Mean Corpuscular HGB Conc 30.5 g/dl (32-36); Mean Corpuscular Hemoglobin 22.2 pg (26-34); Mean Corpuscular Volume 72.8 fl (80-100); Mean Platelet Volume 9.8 fl (7.4-10.4); Monocytes Absolute Auto 0.5 K/mm3 (0.1-0.6); Monocytes Percent Auto 8.9 % (2.6-8.5); Neutrophils Absolute Auto 5.2 K/mm3 (1.3-6.7); Neutrophils Percent Auto 87.4 % (45.5-73.1); Platelet Count Result 368 k/mm3 (150-375); Red Blood Count 4.27 M/mm3 (4.6-6.20); Red Cell Distribution Width 18.7 % (11.5-14.5)
[2020-07-29 21:25] LABS: Prothrombin Time 13.2 Seconds (11.1-14.7)
[2020-07-29 21:26] LABS: Ammonia < 9 umol/L (9-30)
[2020-07-29 21:28] LABS: D Dimer 2.62 ug/mL (<0.48); Lactic Acid Reflex 1.7 mmol/L (0.7-2.1)
[2020-07-29 21:29] LABS: Alanine Aminotransferase 19 U/L (4-50); Albumin Level 3.9 g/dL (3.5-5.1); Alkaline Phosphatase 74 U/L (38-126); Anion Gap 12 mmol/L (8-16); Aspartate Amino Transferase 44 U/L (17-59); Bilirubin,Total 0.6 mg/dL (0.2-1.3); Blood Urea Nitrogen 31 mg/dL (9-20); Calcium 8.8 mg/dL (8.4-10.2); Carbon Dioxide 25 mmol/L (22-30); Chloride 101 mmol/L (98-107); Estimated Glomerular Filt Rate 59; Glucose 116 mg/dL (75-110); Potassium 4.1 mmol/L (3.4-5.0); Sodium 138 mmol/L (137-145)
[2020-07-29 21:33] LABS: CRP 7.6 mg/dL (<1.0)
[2020-07-29 21:41] LABS: Add Urine Microscopic? YES; Amorphous Sediment Urine Moderate; Appearance Urine Cloudy (Clear); Bilirubin Urine Negative (Negative); Blood Urine 1+ (Negative); Color Urine Yellow (Yellow); Glucose Urine UA Negative (Negative); Ketones Urine Trace mg/dL (Negative); Leukocyte Esterase Ur Negative LEU/UL (Negative); Mucus Urine Rare /lpf; Nitrate Urine Negative (Negative); Protein Urine 2+ mg/dL (Negative); RBC Urine 0-2 /hpf (0-2); Specific Grav Ur 1.018 (1.001-1.035); Squamous Epithelial Cell Urine Rare /hpf (Few); Urobilinogen Urine Negative mg/dL (<2.0); WBC Urine 0-3 /hpf
[2020-07-29 21:44] LABS: Troponin I 0.076 ng/mL (0.000-0.034)
[2020-07-29] MEDS: IPRATROPIUM BR 0.02% INH SOLN 0.5 MG/2.5 ML VIAL 1 MG INHALATION (21:44)
[2020-07-29 21:45] VITALS: PULSE 96; RESP 22; O2SAT 96
[2020-07-29] MEDS: ALBUTEROL SULFATE NEB 2.5 MG/0.5 ML INH 10 MG INHALATION (21:45)
[2020-07-29 21:49] LABS: Alveolar/Arterial O2 Gradient 139.2 mmHg; Base Excess ABG -2.9 mEq/l (+/-2.0); Carboxyhemoglobin 0.3 % THb (0-2.0); Fractional Inspired Oxygen 35 %; HCO3 ABG 20.8 mEq/l (22.0-26.0); Methemoglobin ABG 0.3 %THb (0-1.5); Oxygen Content ABG 12.6 %vol (16.0-22.0); Oxygen Saturation ABG 95.3 % (95.0-100.0); Oxyhemoglobin 92.7 % THb (90.0-100.0); PCO2 ABG 32.1 mmHg (35.0-45.0); PO2 FiO2 Ratio Arterial Blood 2.09 %; Reduced Hemoglobin 6.7 %THb (0-5.0); Total Hemoglobin 9.6 g/dL (12.0-18.0); pH ABG 7.429 (7.350-7.450)
[2020-07-29 21:51] LABS: Device NASAL CANNULA; Modified Allen's Test Pass; Site Drawn RIGHT RADIAL
[2020-07-29 22:04] VITALS: BP 121/63; PULSE 96; RESP 19; O2SAT 96
[2020-07-29] MEDS: methylPREDNISolone SOD SUCC 125 MG VIAL IV PUSH (22:48)
[2020-07-29 23:02] VITALS: BP 130/85; PULSE 122; RESP 20; TEMP 37.9; O2SAT 90
[2020-07-29] MEDS: dilTIAZem HCl INJ 25 MG/5 ML VIAL 5 MG IV PUSH (23:55)
[2020-07-30] VITALS (22 sets, daily range): BP systolic 88–150; BP diastolic 54–90; PULSE 65–110; RESP 17–24; TEMP 35.8–37; O2SAT 89–100; BMI 19.3
[2020-07-30] MEDS: methylPREDNISolone SOD SUCC 125 MG VIAL 60 MG IV PUSH ×4 (01:01→17:35)
--- NOTE | 2020-07-30 01:05 | PM.IMHP ---
H&P: HPI History of Present Illness Date/Time: 07/30/20 01:05 Chief complaint: Acute on chronic respiratory failure, Fever Narrative: this is a pleasant 74-year-old male with known polycythemia vera, alcohol abuse, chronic respiratory failure who was recently discharged from our hospitalist service and who returned to the hospital tonight after his family found him shaking and apparently confused. On arrival to the hospital the patient was found to be febrile. The patient denies any recent coughing, chest pain, palpitations, abdominal pain, nausea, vomiting, dysuria, diarrhea, or focal neurological symptoms. On my encounter with the patient he does complain of mild shortness of breath although he is on 4 L of oxygen which is the same amount of oxygen he is on at home and saturating above 92%. The patient was found to be in rapid atrial fibrillation which he tells me is new to him. The patient was also found to have a mildly elevated troponin of 0.076. in the ER the patient was swabbed for COVID. chest x-ray was obtained in the ER tonight and does show chronic changes of COPD with mild interstitial congestion which is virtually unchanged from his last chest x-ray. Review of Systems Review of Systems: All systems reviewed & are unremarkable except as noted in HPI and below PMFSH Past Medical History Medical History Alcohol abuse Alcohol abuse BPH (benign prostatic hyperplasia) COPD (chronic obstructive pulmonary disease) GERD (gastroesophageal reflux disease) Polycythemia vera Social History Social History Smoking packs per day: 1 Smoking cigarettes per day: 20.0 Years smoked: 60 Smoking pack-years: 60.00 Smoking status: Heavy tobacco smoker Tobacco type: cigarettes Smoking end date: 07/15/14 Alcohol intake: current Drinks per week: 7 Substance use: never Substance use type: painkillers Spiritual care concerns: Yes (catholic) Meds Home Medications and Allergies Home Medications Medication Instructions Recorded Confirmed Type pantoprazole 40 mg PO DAILY 07/14/20 07/29/20 History tamsulosin 0.4 mg PO DAILY 07/14/20 07/29/20 History albuterol sulfate [Ventolin HFA] 1 inh INHALATION QID PRN 07/15/20 07/29/20 History ruxolitinib 5 mg PO BID #0 tablet 07/18/20 07/29/20 Rx thiamine HCl (vitamin B1) [Vitamin 100 mg PO QAM #30 tablet 07/18/20 07/29/20 Rx B-1] acetaminophen-codeine 1 tablet PO Q6H PRN 07/30/20 07/30/20 History albuterol sulfate 0.63 mg INHALATION Q6H 07/30/20 07/30/20 History aspirin 81 mg PO DAILY 07/30/20 07/30/20 History bisacodyl [Dulcolax (bisacodyl)] 10 mg MT DAILY PRN 07/30/20 07/30/20 History fluticasone propion-salmeterol 1 inh INHALATION Q12H 07/30/20 07/30/20 History [Advair Diskus] guaifenesin [Mucinex] 600 mg PO BID 07/30/20 07/30/20 History tiotropium bromide [Spiriva with 1 cap INHALATION DAILY 07/30/20 07/30/20 History HandiHaler] Allergies Allergy/AdvReac Type Severity Reaction Status Date / Time No Known Allergies Allergy Verified 07/29/20 21:06 Vital Signs Vital Signs - 24 hr 07/29/20 20:49 07/29/20 21:04 07/29/20 21:45 Temperature 38.4 C H Pulse Rate 98 79 96 Respiratory Rate 27 H 22 H 22 H Blood Pressure 153/69 H Pulse Oximetry 90 90 96 07/29/20 22:04 07/29/20 23:02 07/30/20 00:13 Temperature 37.9 C H Pulse Rate 96 122 H 84 Respiratory Rate 19 20 21 H Blood Pressure 121/63 130/85 134/88 Pulse Oximetry 96 90 91 07/30/20 00:24 Temperature Pulse Rate 100 Respiratory Rate 20 Blood Pressure 134/88 Pulse Oximetry 100 Exam Const: General: cooperative, no acute distress, alert, awake and ill appearing chronically Nutritional Appearance: well nourished Orientation/consciousness: patient oriented x3 HENMT: Head: normal to inspection General nose exam: Normal external nose present Face and sinus: no
[2020-07-30] MEDS: LACTATED RINGERS 1,000 ML 75 ML IV CONT ×2 (01:15→13:36)
--- NOTE | 2020-07-30 01:21 | ADMGEN ---
This patient, Sebastián Recinos, was admitted to Intensive Care Unit-2. Patient/family oriented to hospital policies and general routines including ID bracelet, bed and alarms, visiting hours, pain management, procedures, bathroom and other care routines, personal items, smoking policy, room service/diet, and visiting hours. Valuables list has been completed. Information on how to activate the Rapid Response Team has been discussed. Patient/Family are encouraged to report perceived risks to care and to ask questions if they do not understand what they are told or what they should do.
[2020-07-30 05:41] LABS: Immature Granulocyte Absolute 0.06 K/mm3 (0.00-0.031); Mean Platelet Volume 10.6 fl (7.4-10.4); Monocytes Absolute Auto 0.2 K/mm3 (0.1-0.6)
[2020-07-30] MEDS: FLUTICASONE/SALMETEROL 45-21 MCG INHALER 1 PUFF (05:50)
[2020-07-30] MEDS: LEVALBUTEROL HFA (*SP) 15 GM INHALER 2 PUFF INHALATION ×4 (05:51→18:10)
[2020-07-30 05:59] LABS: Hypochromasia 2+ (NORMAL); Microcytosis 2+ (NORMAL); Platelet Estimate Adequate (Adequate)
[2020-07-30 06:00] LABS: Crenated RBC 1+ (NORMAL)
[2020-07-30 06:11] LABS: Troponin I 0.053 ng/mL (0.000-0.034)
--- NOTE | 2020-07-30 06:43 | PC.NURSE ---
07/30/20 : 0640: This nurse was notified of a critical Hgb and Hct at [address] Ledezma notified of results. New orders received. At 0640 laboratory notified this nurse that the critical Hgb and Hct were not accurate results. Dr Ledezma notified and new orders received for a redraw
[2020-07-30 06:44] LABS: Alveolar/Arterial O2 Gradient 154.5 mmHg; Base Excess ABG -3.4 mEq/l (+/-2.0); Carboxyhemoglobin 0.3 % THb (0-2.0); Fractional Inspired Oxygen 36 %; HCO3 ABG 20.5 mEq/l (22.0-26.0); Methemoglobin ABG 0.4 %THb (0-1.5); Oxygen Content ABG 12.3 %vol (16.0-22.0); Oxygen Saturation ABG 93.2 % (95.0-100.0); PCO2 ABG 32.5 mmHg (35.0-45.0); PO2 ABG 64.5 mmHg (80.0-100.0); PO2 FiO2 Ratio Arterial Blood 1.79 %; Reduced Hemoglobin 9.3 %THb (0-5.0); Total Hemoglobin 9.7 g/dL (12.0-18.0); pH ABG 7.417 (7.350-7.450)
[2020-07-30 06:45] LABS: Device NASAL CANNULA; Site Drawn RIGHT BRACHIAL
[2020-07-30 06:56] LABS: Hematocrit 26.7 % (42.0-52.0); Hemoglobin 8.1 g/dL (14.0-18.0)
[2020-07-30 07:06] LABS: Red Blood Count 3.64 M/mm3 (4.6-6.20); White Blood Count 5.4 K/mm3 (4.5-10.0)
[2020-07-30 07:07] LABS: Eosinophils Percent Auto 0.2 % (0-4.4); Hematocrit 26.5 % (42.0-52.0); Hemoglobin 8.1 g/dL (14.0-18.0); Immature Granulocyte Percent A 1.1 % (0-0.5); Mean Corpuscular HGB Conc 30.6 g/dl (32-36); Mean Corpuscular Hemoglobin 22.3 pg (26-34); Mean Corpuscular Volume 72.8 fl (80-100); Monocytes Percent Auto 4.1 % (2.6-8.5); Neutrophils Percent Auto 92.6 % (45.5-73.1); Platelet Count Result 304 k/mm3 (150-375); Red Cell Distribution Width 18.7 % (11.5-14.5)
[2020-07-30 07:08] LABS: Lymphocytes Absolute Auto 0.11 K/mm3 (0.9-3.2)
[2020-07-30 07:45] LABS: Thyroid Stimulating Hormone Reflex 0.156 uIU/mL (0.465-4.68)
[2020-07-30 07:52] LABS: Anion Gap 13 mmol/L (8-16); Blood Urea Nitrogen 16 mg/dL (9-20); Calcium 6.9 mg/dL (8.4-10.2); Carbon Dioxide 14 mmol/L (22-30); Chloride 104 mmol/L (98-107); Estimated CRCL calculation 79 ml/min; Estimated Glomerular Filt Rate > 60; Glucose 108 mg/dL (75-110); Potassium 3.7 mmol/L (3.4-5.0); Sodium 131 mmol/L (137-145)
[2020-07-30] MEDS: FLUTICASONE/SALMETEROL 45-21 MCG INHALER 1 PUFF 2 PUFF INHALATION ×2 (08:20→20:32)
[2020-07-30] MEDS: ASPIRIN 81 MG ENTERIC TABLET PO (09:30)
[2020-07-30] MEDS: PANTOPRAZOLE 40 MG TABLET PO (09:30)
[2020-07-30] MEDS: THIAMINE HCL 100 MG TABLET PO (09:30)
[2020-07-30] MEDS: TAMSULOSIN HCL 0.4 MG CAPSULE PO (09:30)
[2020-07-30] MEDS: guaiFENesin 12 HR 600 MG TABCR PO ×2 (09:31→17:35)
--- NOTE | 2020-07-30 10:04 | PM.CNCAR ---
Assessment and Plan Additional Plan very ill-appearing 74-year-old man with significant chronic lung disease apparent history of polycythemia vera but now he is significantly anemic. Obviously this is of concern. A cardiac issue at hand is that he is in atrial fibrillation of unknown chronicity with which he appears to be hemodynamically stable and asymptomatic. I am going to switch him to oral diltiazem to provide heart rate control I do not see any reason he needs to receive an intravenous infusion since he appears to be comfortable and taking oral medications without difficulty. At this time I am not going to systemically anticoagulate this man since I found it quite concerning that a gentleman with a history of polycythemia is now significantly anemic. That will need to be evaluated before I think we can make a risk benefit decision as to providing systemic anticoagulation in this setting. An echocardiogram has been ordered and will be done obviously that is not going to happen on Friday. His COVID assay is pending we will watch the results of that and provide follow-up as necessary while he is in the hospital. Bryant Jones MD [facility] History of Present Illness History of Present Illness Consult date/time: 07/30/20 10:04 Consult reason: atrial fibrillation Reason For Visit: Acute on chronic respiratory failure, Fever Narrative: This is a 74-year-old man I am seeing at the request of the hospitalist because of atrial fibrillation. It appears the patient has atrial fibrillation of unknown chronicity as he is from the best I can tell asymptomatic and unaware of his arrhythmia. He is apparently a gentleman with severe chronic lung disease who recently moved to this area from [facility] and is living with family in this area. He was brought to the hospital yesterday evening because he was found at home to be in a semi responsive state confused and shaking. In the emergency room he was found to be febrile he was also noted to be in atrial fibrillation with a heart rate in the low 100s. He was hemodynamically stable and unaware of his arrhythmia he did have a previous ECG here that demonstrated sinus rhythm but no has no history of cardiac problems that he is aware of. Because of his fever he was swabbed for a lechuga virus that result is yet pending and in this setting I am seeing him in consultation. He is in isolation in ICU room 2. Will his COVID assay is pending. He has been a heavy smoker for many years he quit smoking he says about 7 years ago. His physicians have told him that he has advanced chronic lung disease his chest x-ray is consistent with relatively severe COPD at least by my interpretation. He is not reporting any sense of palpitations chest pain orthopnea PND or accumulating edema. Interestingly the H and P in the chart states that he has polycythemia rubra vera but he is significantly anemic at this time with a hemoglobin of 8 g. I do not have any old records to assess the level of his anemia prior to this. In the emergency room of course he was started on IV diltiazem to slow his ventricular response his heart rate is in the 80s and he has on diltiazem infusion at 5 milligrams/minute he is able to swallow medications and has no difficulty doing that according to the patient and the nursing staff. Review of Systems Constitutional: Constitutional: Reports weakness Eyes: Eyes: Reports no additional eye complaints ENT: Reports nasal congestion Cardiovascular: Cardiovascular: Reports no additional cardiovascular complaints Respiratory: Respiratory: Reports cough and Reports dyspnea Gastrointestinal: Gastrointestinal: Reports no additional gastrointestinal complaints Musculoskeletal: Musculoskeletal: Reports no additional musculoskeletal complaints Integumentary/Breasts: Skin/Breast: Reports system reviewed and no additional complaints, except as docu Neurologic: Reports as per HPI and Reports confusion En
[2020-07-30 12:25] LABS: Iron < 10 ug/dL (49-181)
[2020-07-30 12:55] LABS: Percent Iron Saturation < 3 % (20-50)
[2020-07-30 18:04] LABS: Free T4 Free Thyroxine Reflex 1.86 ng/dL (0.78-2.19)
[2020-07-30] MEDS: ACETAMINOPHEN 325 MG TABLET 650 MG PO (18:14)
[2020-07-30 18:49] LABS: Total Triiodothyronine (T3) 0.52 NG/ML (0.97-1.69)
[2020-07-31] VITALS (22 sets, daily range): BP systolic 104–131; BP diastolic 54–97; PULSE 72–111; RESP 19–24; TEMP 35.5–36.4; O2SAT 85–95; BMI 20.3
[2020-07-31] MEDS: methylPREDNISolone SOD SUCC 125 MG VIAL 60 MG IV PUSH ×3 (00:16→12:25)
--- NOTE | 2020-07-31 01:28 | ECHO_ITS ---
Patient Info Name: Sebastián Recinos Age: 74 years : 1945 Gender: Male Ht: 70 in Wt: 140 lbs BSA: 1.76 m2 HR: 85 bpm BP: 122 / 57 mmHg Heart Rhythm: Atrial Fibrillation Technical Quality: Fair Exam Date: 07/31/2020 2:58 PM Exam Location: [facility] Patient Status: Inpatient Admit Date: 07/29/2020 Staff Ordering Physician: Chandrakant Ledezma MD Aircraft Instrument Engineer: Jayden Glass RDCS Attending Provider: Chandrakant Ledezma MD Referring Physician: Darien TEJADA; Exam Type: CA echo doppler color flow Study Info Indications I48.1 - Persistent atrial fibrillation History/Risk Factors Covid-19+; Afib w/ RVR, EtOH abuse, Anemia, COPD. Summary 1. Normal LV size , mild LVH, normal LV systolic function, EF 55-60%. Normal diastolic function. Normal mitral valve structure, no significant MR. Aortic valve not well visualized, no significant stenosis by Doppler. Mild tricuspid regurgitation, moderate pulmonary hypertension, RVSP 48 mmHg. Dilated IVC without respiratory collapse.,. Left Ventricle Left ventricular chamber dimension is normal. Left ventricular systolic function is normal, estimated at 55-60%. There is mildly increased left ventricular wall thickness. The left ventricular diastolic function is normal. Right Ventricle Right ventricular chamber dimension is mildly enlarged. Left Atria Left atrial chamber dimension is not well visualized. Right Atria Right atrial chamber dimension is not well visualized. Aortic Valve The aortic valve is not well visualized. There is no aortic valve stenosis. Pulmonic Valve The pulmonic valve is not well visualized. Mitral Valve The mitral valve has normal leaflets. Tricuspid Valve The tricuspid valve leaflets are normal. There is mild tricuspid valve regurgitation. Moderate pulmonary hypertension, estimated pulmonary arterial systolic pressure is 48 mmHg. Pericardium/Pleural There is small pericardial effusion. Inferior Vena Cava Dilated inferior vena cava with no collapse upon inspiration consistent with elevated right atrial pressure, 15 mmHg. Left Ventricular Outflow Tract Name Value Normal LVOT 2D LVOT Diameter 2.2 cm LVOT Doppler LVOT Peak Gradient 5 mmHg LVOT Mean Gradient 2 mmHg LVOT VTI 20 cm LVOT VTI/AV VTI Ratio 0.9 LVOT Stroke Volume 76 ml LVOT CO 5.4 l/min LVOT CI 3.1 l/min/m2 Mitral Valve Name Value Normal MV Doppler MV Decel [place] 489 cm/s2 MV PHT 38 ms MV Area (PHT) 5.8 cm2 4.0-5.0 MV Diastolic Function
[2020-07-31] MEDS: LACTATED RINGERS 1,000 ML 75 ML IV CONT (03:00)
[2020-07-31 04:37] LABS: Basophils Percent Auto 0.1 % (0.2-1.2); Hematocrit 29.7 % (42.0-52.0); Hemoglobin 9.1 g/dL (14.0-18.0); Immature Granulocyte Absolute 0.14 K/mm3 (0.00-0.031); Immature Granulocyte Percent A 1.4 % (0-0.5); Lymphocytes Absolute Auto 0.35 K/mm3 (0.9-3.2); Lymphocytes Percent Auto 3.4 % (18.3-44.2); Mean Corpuscular HGB Conc 30.6 g/dl (32-36); Mean Corpuscular Hemoglobin 22.4 pg (26-34); Mean Corpuscular Volume 73.2 fl (80-100); Mean Platelet Volume 10.7 fl (7.4-10.4); Monocytes Absolute Auto 0.8 K/mm3 (0.1-0.6); Monocytes Percent Auto 7.9 % (2.6-8.5); Neutrophils Absolute Auto 8.9 K/mm3 (1.3-6.7); Neutrophils Percent Auto 87.2 % (45.5-73.1); Platelet Count Result 396 k/mm3 (150-375); Red Blood Count 4.06 M/mm3 (4.6-6.20); Red Cell Distribution Width 18.9 % (11.5-14.5); White Blood Count 10.2 K/mm3 (4.5-10.0)
[2020-07-31 04:56] LABS: Anion Gap 9 mmol/L (8-16); Blood Urea Nitrogen 24 mg/dL (9-20); Calcium 8.2 mg/dL (8.4-10.2); Carbon Dioxide 23 mmol/L (22-30); Chloride 104 mmol/L (98-107); Estimated CRCL calculation 69 ml/min; Estimated Glomerular Filt Rate > 60; Glucose 136 mg/dL (75-110); Potassium 3.4 mmol/L (3.4-5.0); Sodium 136 mmol/L (137-145)
[2020-07-31 05:43] LABS: Large Platelets Present; Ovalocytes 1+ (NORMAL); Platelet Estimate Adequate (Adequate)
[2020-07-31 05:45] LABS: Crenated RBC 1+ (NORMAL)
[2020-07-31] MEDS: FLUTICASONE/SALMETEROL 45-21 MCG INHALER 1 PUFF 2 PUFF INHALATION ×2 (08:30→20:54)
[2020-07-31] MEDS: LEVALBUTEROL HFA (*SP) 15 GM INHALER 2 PUFF INHALATION ×3 (08:38→20:54)
[2020-07-31] MEDS: THIAMINE HCL 100 MG TABLET PO (08:49)
[2020-07-31] MEDS: PANTOPRAZOLE 40 MG TABLET PO (08:49)
[2020-07-31] MEDS: TAMSULOSIN HCL 0.4 MG CAPSULE PO (08:49)
[2020-07-31] MEDS: ASPIRIN 81 MG ENTERIC TABLET PO (08:49)
[2020-07-31] MEDS: guaiFENesin 12 HR 600 MG TABCR PO ×2 (08:49→17:36)
[2020-07-31 12:20] LABS: SARS-CoV-2 RNA PCR Positive
--- NOTE | 2020-07-31 13:40 | PM.IMPN ---
Progress Note: A&P Assessment and Plan (1) Pneumonia due to COVID-19 virus: Code(s): U07.1 - COVID-19; J12.89 - Other viral pneumonia Status: Acute Assessment and Plan: Since his oxygen requirement has increased from baseline we will add dexamethasone and remdesivir. Monitor liver enzymes while on remdesivir, latest AST was normal. (2) Atrial fibrillation with RVR: Code(s): I48.91 - Unspecified atrial fibrillation Status: Acute Assessment and Plan: Appears to be new onset atrial fibrillation with rapid ventricular response. Echocardiogram is still pending. His rate is controlled now on 240 mg cardizem PO. (3) Elevated troponin: Code(s): R79.89 - Other specified abnormal findings of blood chemistry Status: Acute Assessment and Plan: Likely secondary to rapid AFib. Trend troponin. Cardiology is following. (4) COPD exacerbation: Code(s): J44.1 - Chronic obstructive pulmonary disease with (acute) exacerbation Status: Acute Assessment and Plan: continue bronchodilators. (5) Chronic respiratory failure: Qualifiers: Respiratory failure complication: unspecified whether with hypoxia or hypercapnia Qualified Code(s): J96.10 - Chronic respiratory failure, unspecified whether with hypoxia or hypercapnia Code(s): J96.10 - Chronic respiratory failure, unspecified whether with hypoxia or hypercapnia Status: Chronic Assessment and Plan: Acute on chronic hypoxemic respiratory failure likely triggered by viral pneumonia due to SARS COV-2. (6) Polycythemia vera: Code(s): D45 - Polycythemia vera Status: Acute Assessment and Plan: Stable, sent occult blood to investigate the anemia however there is no active bleeding at this time. (7) Alcohol abuse: Code(s): F10.10 - Alcohol abuse, uncomplicated Status: Chronic Assessment and Plan: CIWA protocol. Thiamine IV daily. Ativan withdrawal prophylaxis. (8) GERD (gastroesophageal reflux disease): Qualifiers: Esophagitis presence: esophagitis presence not specified Qualified Code(s): K21.9 - Gastro-esophageal reflux disease without esophagitis Code(s): K21.9 - Gastro-esophageal reflux disease without esophagitis Status: Chronic Assessment and Plan: Continue Protonix. Additional Plan The patient will likely need at least 2 nights of inpatient medical therapy for his atrial fibrillation with RVR and comorbid conditions listed above. Date of service was July 30, 2020 at 12:30 a.m. Subjective Date/time seen: Pt seen and examined, he is feeling better. Off the cardizem drip he was transitioned to PO. Still waiting on his COVID results. 07/31/20 13:40 Exam Const: General: comfortable and no acute distress Other: Looks chronically ill Neck: Neck: supple and no JVD Resp: Effort & Inspection: normal respiratory effort Auscultation: diminished lung sounds Other: Mild scattered wheezing. Cardio: Other: Irregularly irregular rhythm without tachycardia or bradycardia . GI: Auscultation: normal bowel sounds Other: Non distended, no tenderness. Neuro: Motor exam (neuro): Normal motor muscle tone present throughout Sensory Exam: normal sensation Other: Generalized weakness, no focal deficits. Extrem: Other: No edema . Psych: Mental Status: mental status grossly normal Objective Data Vital Signs Vital Signs: Vital Signs - 24 hr 07/30/20 14:00 07/30/20 16:00 07/30/20 18:00 Temperature 97.8 F Pulse Rate 86 74 109 H Pulse Rate [Bilateral Pedal (Dorsalis Pedis) Palpation] Respiratory Rate 22 H Blood Pressure 116/71 Pulse Oximetry 93 07/30/20 20:00 07/30/20 20:25 07/30/20 20:29 Temperature 96.4 F L Pulse Rate 110 H 102 H Pulse Rate [Bilateral Pedal (Dorsalis Pedis) Palpation] 102 H Respiratory Rate 24 H Blood Pressure 133/90 133/90 Pulse Oximet
[2020-07-31] MEDS: REMDESIVIR 200 MG/NS 250 ML 200 MG/250 ML BAG IVPB (15:50)
[2020-08-01] VITALS (18 sets, daily range): BP systolic 98–136; BP diastolic 58–90; PULSE 64–114; RESP 16–22; TEMP 36.3–36.5; O2SAT 91–97
[2020-08-01 04:28] LABS: Basophils Percent Auto 0.1 % (0.2-1.2); Hemoglobin 8.8 g/dL (14.0-18.0); Immature Granulocyte Absolute 0.43 K/mm3 (0.00-0.031); Immature Granulocyte Percent A 3.8 % (0-0.5); Lymphocytes Absolute Auto 0.21 K/mm3 (0.9-3.2); Lymphocytes Percent Auto 1.9 % (18.3-44.2); Mean Corpuscular HGB Conc 30.3 g/dl (32-36); Mean Corpuscular Hemoglobin 21.8 pg (26-34); Mean Corpuscular Volume 71.8 fl (80-100); Mean Platelet Volume 10.5 fl (7.4-10.4); Monocytes Percent Auto 8.7 % (2.6-8.5); Neutrophils Absolute Auto 9.6 K/mm3 (1.3-6.7); Neutrophils Percent Auto 85.5 % (45.5-73.1); Platelet Count Result 437 k/mm3 (150-375); Red Blood Count 4.04 M/mm3 (4.6-6.20); Red Cell Distribution Width 18.8 % (11.5-14.5); White Blood Count 11.2 K/mm3 (4.5-10.0)
[2020-08-01 04:44] LABS: Alanine Aminotransferase 16 U/L (4-50); Anion Gap 7 mmol/L (8-16); Blood Urea Nitrogen 24 mg/dL (9-20); Calcium 8.2 mg/dL (8.4-10.2); Carbon Dioxide 24 mmol/L (22-30); Chloride 108 mmol/L (98-107); Estimated CRCL calculation 81 ml/min; Estimated Glomerular Filt Rate > 60; Glucose 117 mg/dL (75-110); Potassium 3.5 mmol/L (3.4-5.0); Sodium 139 mmol/L (137-145)
[2020-08-01 05:02] LABS: Platelet Estimate Adequate (Adequate)
[2020-08-01 05:03] LABS: Hypochromasia 1+ (NORMAL); Microcytosis 2+ (NORMAL); Ovalocytes 1+ (NORMAL)
[2020-08-01 05:04] LABS: Crenated RBC 1+ (NORMAL); Macrocytosis 1+ (NORMAL)
[2020-08-01] MEDS: DEXAMETHASONE SOD PHOS INJ 4 MG/ML VIAL 6 MG IV PUSH (09:10)
--- NOTE | 2020-08-01 09:15 | PC.NURSE ---
Patient able to follow simple commands only. Unable to use straw to drink fluids. Garbled speech.
[2020-08-01] MEDS: FLUTICASONE/SALMETEROL 45-21 MCG INHALER 1 PUFF 2 PUFF INHALATION ×2 (10:26→21:20)
[2020-08-01] MEDS: TAMSULOSIN HCL 0.4 MG CAPSULE PO (11:16)
[2020-08-01] MEDS: ASPIRIN 81 MG ENTERIC TABLET PO (11:16)
[2020-08-01] MEDS: PANTOPRAZOLE 40 MG TABLET PO (11:16)
[2020-08-01] MEDS: THIAMINE HCL 100 MG TABLET PO (11:16)
[2020-08-01] MEDS: guaiFENesin 12 HR 600 MG TABCR PO ×2 (11:16→17:22)
--- NOTE | 2020-08-01 12:34 | PM.PNCARD ---
Progress Note: A&P Assessment and Plan (1) Atrial fibrillation with RVR: Code(s): I48.91 - Unspecified atrial fibrillation Status: Acute Assessment and Plan: ATrial fibrillation, appears to be of new onset, now w/ a controlled HR on po diltiazem. May be related to COVID infection + Etoh TSH is low but was normal in June. Echo = normal LV function w/ no significant valve disease. Appears to have an iron-deficiency anemia and is not being anticoagulated at this time. Continue current therapy. (2) Elevated troponin: Code(s): R79.89 - Other specified abnormal findings of blood chemistry Status: Acute Assessment and Plan: Mildly elevated troponin w/o CP or ischemic EKG changes. Likely 2nd COVID -19 infection. (3) Pneumonia due to COVID-19 virus: Code(s): U07.1 - COVID-19; J12.89 - Other viral pneumonia Status: Acute Assessment and Plan: On high-flow O2 but stable. (4) Alcohol abuse: Code(s): F10.10 - Alcohol abuse, uncomplicated Status: Chronic Assessment and Plan: Had some withdrawal sx last night. H/O elevated ammonia levels but normal on this admission. Subjective Date/time seen: 08/01/20 12:34 Follow-up for atrial fibrillation, new onset. Patient is COVID positive on high-flow oxygen. Date of service: 08/01/2020 Had problems w/ Etoh withdrawal last night and was given Ativan. Sleepy and lethargic today. Still on high-flow O2. Not eating much. BP occ low. Tele = a fib HR 70-90's, occ PVCs and sometimes a triplet. ECHO = EF 55-60%, no significant valve disease, RVSP 48 mmHg consistent with moderate pulmonary hypertension. Review of Systems Review of Systems: Narrative: ROS obtained from the chart and from the RN. ROS unobtainable: Yes unobtainable due to medical condition and unobtainable due to mental status Constitutional: Constitutional: Reports fatigue and Reports weakness ENT: Denies epistaxis and Denies nasal congestion Cardiovascular: Cardiovascular: Denies chest pain and Denies leg edema Respiratory: Respiratory: Reports cough, Denies hemoptysis and Reports dyspnea Gastrointestinal: Gastrointestinal: Denies abdominal pain Genitourinary: Genitourinary: Denies hematuria and Denies dysuria Musculoskeletal: Musculoskeletal: Reports no additional musculoskeletal complaints Integumentary/Breasts: Skin/Breast: Denies rash Neurologic: Reports confusion Psychiatric: Psychiatric: Reports behavioral changes (confused and sleepy) Exam Const: General: comfortable and no acute distress HENMT: General nose exam: no epistaxis Eyes: General: appearance normal, both eyes and all related structures Neck: Neck: supple Resp: Effort & Inspection: normal respiratory effort Cardio: Rhythm: abnormal rhythm (a fib) irregularly irregular GI: Inspection: non-distended Skin: General skin exam: normal color Rashes: no rashes noted Neuro: Cognition (Neuro): abnormal cognition (lethargic) Extrem: General: no edema Psych: Mental Status: mental status grossly abnormal (Sleepy, confused at times.) Objective Data Vital Signs Vital Signs: Vital Signs - 24 hr 07/31/20 14:00 07/31/20 16:00 07/31/20 16:41 Temperature 97.5 F L Pulse Rate 101 H 108 H 95 Pulse Rate [Bilateral Pedal (Dorsalis Pedis) Palpation] Respiratory Rate 23 H 19 Blood Pressure 125/97 H Pulse Oximetry 90 07/31/20 16:46 07/31/20 16:53 07/31/20 18:00 Temperature Pulse Rate 99 100 87 Pulse Rate [Bilateral Pedal (Dorsalis Pedis) Palpation] Respiratory Rate 24 H 20 Blood Pressure Pulse Oximetry 85 L 90 07/31/20 19:39 07/31/20 20:00 07/31/20 20:54 Temperature 97.2 F L Pulse Rate 111 H 99 Pulse Rate [Bilateral Pedal (Dorsalis Pedis) Palpation] 95 Respiratory Rate 20 20 Blood Pressure 131
[2020-08-01] MEDS: REMDESIVIR 100 MG/NS 250 ML 100 MG/250 ML BAG 250 MG IVPB (14:57)
--- NOTE | 2020-08-01 19:13 | PM.IMPN ---
Progress Note: A&P Assessment and Plan (1) Acute and chronic respiratory failure: Code(s): J96.20 - Acute and chronic respiratory failure, unspecified whether with hypoxia or hypercapnia Status: Acute Assessment and Plan: Patient requiring increasing O2 from baseline. Currently at 7L HFNC. Wean O2 as tolerated back to baseline. (2) Pneumonia due to COVID-19 virus: Code(s): U07.1 - COVID-19; J12.89 - Other viral pneumonia Status: Acute Assessment and Plan: Since his oxygen requirement has increased from baseline, dexamethasone and remdesivir started. Monitor liver enzymes while on remdesivir. (3) Chronic respiratory failure: Qualifiers: Respiratory failure complication: unspecified whether with hypoxia or hypercapnia Qualified Code(s): J96.10 - Chronic respiratory failure, unspecified whether with hypoxia or hypercapnia Code(s): J96.10 - Chronic respiratory failure, unspecified whether with hypoxia or hypercapnia Status: Chronic Assessment and Plan: Patient with chronic hypoxemic respiratory failure and uses 1L O2 at rest and 4L with exertion at home. (4) Atrial fibrillation with RVR: Code(s): I48.91 - Unspecified atrial fibrillation Status: Acute Assessment and Plan: Appears to be new onset atrial fibrillation with rapid ventricular response. Echo showing EF 55-60% with normal diastolic function. Moderate pulmonary HTN noted as well (48mmHg). Hear rate controlled now on 240 mg Cardizem PO. (5) Elevated troponin: Code(s): R79.89 - Other specified abnormal findings of blood chemistry Status: Acute Assessment and Plan: Troponin peaked at 0.076. Likely secondary to rapid AFib. Cardiology is following. (6) COPD exacerbation: Code(s): J44.1 - Chronic obstructive pulmonary disease with (acute) exacerbation Status: Acute Assessment and Plan: Stable. Continue bronchodilators prn. (7) Polycythemia vera: Code(s): D45 - Polycythemia vera Status: Acute Assessment and Plan: Stable. Sent occult blood to investigate the anemia. Iron studies consistent with iron deficiency. There is no active bleeding at this time. Ruxolitinib on hold. Monitor HH closely. (8) Alcohol abuse: Code(s): F10.10 - Alcohol abuse, uncomplicated Status: Chronic Assessment and Plan: CIWA protocol. Thiamine IV daily. CIWA up overnight. Ativan available for withdrawal prophylaxis and has been requiring Ativan periodically. Could be explaining some of his confusion. (9) GERD (gastroesophageal reflux disease): Qualifiers: Esophagitis presence: esophagitis presence not specified Qualified Code(s): K21.9 - Gastro-esophageal reflux disease without esophagitis Code(s): K21.9 - Gastro-esophageal reflux disease without esophagitis Status: Chronic Assessment and Plan: Stable. Continue Protonix. (10) DVT prophylaxis: Code(s): Z29.9 - Encounter for prophylactic measures, unspecified Status: Acute Assessment and Plan: Add Lovenox Subjective Date/time seen: 08/01/20 19:13 Interval history: Date of service: 08/01 74yo male with chronic respiratory failure (4L) and COPD here for confusion and fever and found to have COVID. Assuming care. Chart reviewed. Patient alert but does not respond to direct questions. He does state that he is cold during the exam. Exam Narrative: Exam Narrative: AF 97.7 134/84 71 19 96% 7L Gen - NARD lying semi-recumbent in bed Chest - clear anteriorly, crackles in the flanks CV - irregularly irregular; Tele AFib, NSVT Abd - soft, ND, +BS Ext - no pedal edema Neuro - alert, confused, no apparent focal weakness Objective Data Vital Signs Vital Signs: Vital Signs - 24 hr 07/31/20 19:39 07/31/20 20:00 07/31/20 20:54 Temperature 97.2 F L Pulse Rate 111 H 99
[2020-08-01] MEDS: ENOXAPARIN 40 MG/0.4 ML SYRINGE SUB-Q (21:51)
[2020-08-02] VITALS (17 sets, daily range): BP systolic 109–135; BP diastolic 70–87; PULSE 78–146; RESP 17–21; TEMP 35.6–36.6; O2SAT 19–97
[2020-08-02 03:44] LABS: Basophils Percent Auto 0.1 % (0.2-1.2); Hematocrit 31.4 % (42.0-52.0); Hemoglobin 9.4 g/dL (14.0-18.0); Immature Granulocyte Absolute 0.47 K/mm3 (0.00-0.031); Immature Granulocyte Percent A 4.5 % (0-0.5); Lymphocytes Absolute Auto 0.22 K/mm3 (0.9-3.2); Lymphocytes Percent Auto 2.1 % (18.3-44.2); Mean Corpuscular HGB Conc 29.9 g/dl (32-36); Mean Corpuscular Hemoglobin 21.9 pg (26-34); Mean Corpuscular Volume 73.2 fl (80-100); Mean Platelet Volume 10.3 fl (7.4-10.4); Monocytes Absolute Auto 1.1 K/mm3 (0.1-0.6); Monocytes Percent Auto 10.3 % (2.6-8.5); Neutrophils Absolute Auto 8.8 K/mm3 (1.3-6.7); Nucleated Red Blood Cells Perc 0.3 % (0.0-0.2); Platelet Count Result 487 k/mm3 (150-375); Red Blood Count 4.29 M/mm3 (4.6-6.20); Red Cell Distribution Width 19.3 % (11.5-14.5); White Blood Count 10.5 K/mm3 (4.5-10.0)
[2020-08-02 03:57] LABS: Alanine Aminotransferase 16 U/L (4-50); Albumin Level 3.3 g/dL (3.5-5.1); Alkaline Phosphatase 57 U/L (38-126); Anion Gap 7 mmol/L (8-16); Aspartate Amino Transferase 30 U/L (17-59); Bilirubin,Total 0.7 mg/dL (0.2-1.3); Blood Urea Nitrogen 30 mg/dL (9-20); Calcium 8.4 mg/dL (8.4-10.2); Carbon Dioxide 27 mmol/L (22-30); Chloride 108 mmol/L (98-107); Estimated CRCL calculation 78 ml/min; Estimated Glomerular Filt Rate > 60; Glucose 108 mg/dL (75-110); Magnesium 2.2 mg/dL (1.6-2.3); Phosphorus 2.1 mg/dL (2.5-4.5); Potassium 3.2 mmol/L (3.4-5.0); Sodium 142 mmol/L (137-145)
[2020-08-02 04:17] LABS: Platelet Estimate Adequate (Adequate)
[2020-08-02 04:23] LABS: Burr Cells 1+ (NORMAL)
[2020-08-02 04:25] LABS: Anisocytosis 1+ (NORMAL)
[2020-08-02 04:26] LABS: Ovalocytes 1+ (NORMAL)
[2020-08-02 04:27] LABS: Large Platelets Present
[2020-08-02 07:40] LABS: Base Excess ABG 0.5 mEq/l (+/-2.0); Carboxyhemoglobin 0.3 % THb (0-2.0); Fractional Inspired Oxygen 48 %; Methemoglobin ABG 0.4 %THb (0-1.5); Oxygen Saturation ABG 93.8 % (95.0-100.0); Oxyhemoglobin 90.5 % THb (90.0-100.0); PCO2 ABG 29.5 mmHg (35.0-45.0); PO2 ABG 60.9 mmHg (80.0-100.0); PO2 FiO2 Ratio Arterial Blood 1.27 %; Reduced Hemoglobin 8.8 %THb (0-5.0); Total Hemoglobin 10.2 g/dL (12.0-18.0); pH ABG 7.509 (7.350-7.450)
[2020-08-02 07:41] LABS: Device HIGH FLOW NASAL CANN; Site Drawn RIGHT BRACHIAL
[2020-08-02] MEDS: FLUTICASONE/SALMETEROL 45-21 MCG INHALER 1 PUFF 2 PUFF INHALATION ×2 (09:28→21:11)
[2020-08-02] MEDS: FUROSEMIDE INJ 40 MG/4 ML VIAL IV PUSH (09:38)
[2020-08-02] MEDS: DEXAMETHASONE SOD PHOS INJ 4 MG/ML VIAL 6 MG IV PUSH (09:38)
[2020-08-02 10:13] LABS: NT Pro B Type Natriuretic Pept 4130 PG/ML (5-100)
[2020-08-02] MEDS: ASPIRIN 81 MG ENTERIC TABLET PO (10:40)
[2020-08-02] MEDS: guaiFENesin 12 HR 600 MG TABCR PO ×2 (10:42→20:07)
[2020-08-02] MEDS: PANTOPRAZOLE 40 MG TABLET PO (10:42)
[2020-08-02] MEDS: THIAMINE HCL 100 MG TABLET PO (10:42)
[2020-08-02] MEDS: TAMSULOSIN HCL 0.4 MG CAPSULE PO (10:42)
[2020-08-02] MEDS: POTASSIUM PHOS,M-BASIC-D-BASIC 20 MMOL in SODIUM CHLORIDE 0.9% IV 250 ML 62.5 MMOL IVPB (10:44)
--- NOTE | 2020-08-02 11:08 | PCDIET ---
ICU Rounding Note: Patient with minimal intake on heart healthy diet. Taking small amounts of Ensure Enlive (350kcal, 20g protein) which is provided TID. Recommend liberalizing to regular, no added salt diet. Would also consider folic acid supplement, given history of ETOH intake. Last recorded weight is 62.1kg which is down from last review. Bowel Motility: No documented BM. Labs Reviewed: Hgb (9.4), Hct (31.4), BUN (30), Cr (0.6), K (3.2), Alb (3.3), PO4 (2.1), BNP (4130) Meds Noted: Decadron, Lasix, Protonix, K-Phos, KCl, Phos-NaK, Remdesivir, Advair, Vitamin B1 Additional Notes: Buttocks macerated. Following daily in ICU rounds. Assessing/reassessing every 3 days.
[2020-08-02] MEDS: dilTIAZem HCl INJ 25 MG/5 ML VIAL 10 MG IV PUSH (11:51)
--- NOTE | 2020-08-02 12:08 | PC.NURSE ---
Addendum entered by Makenna Marc RN 08/02/20 12:09: Dr. Linares was notified at 1145 Original Note: Notified Dr. Linares of patient's heart rate from 120's to 150's. Pt did receive PO Diltiazem CD at 1040. New order for 10mg IVP of Diltiazem once and continue to monitor.
--- NOTE | 2020-08-02 13:45 | WPDINTPN ---
Progress Note: A&P Assessment and Plan (1) Acute and chronic respiratory failure: Code(s): J96.20 - Acute and chronic respiratory failure, unspecified whether with hypoxia or hypercapnia Status: Acute Assessment and Plan: Patient patient on oxygen at home on baseline. admitted with COVID-19 pneumonia. Currently at 7L HFNC. Wean O2 as tolerated back to baseline. may have component of pulmonary edema as evident by dilated IVC without any respiratory collapse on his echo. I will give Lasix 40 mg IV x1 today continue management for COVID-19 as mentioned below check BNP (2) Pneumonia due to COVID-19 virus: Code(s): U07.1 - COVID-19; J12.89 - Other viral pneumonia Status: Acute Assessment and Plan: continue dexamethasone and remdesivir Monitor liver enzymes while on remdesivir. (3) Chronic respiratory failure: Qualifiers: Respiratory failure complication: unspecified whether with hypoxia or hypercapnia Qualified Code(s): J96.10 - Chronic respiratory failure, unspecified whether with hypoxia or hypercapnia Code(s): J96.10 - Chronic respiratory failure, unspecified whether with hypoxia or hypercapnia Status: Chronic Assessment and Plan: Patient with chronic hypoxemic respiratory failure and uses 1L O2 at rest and 4L with exertion at home. (4) Atrial fibrillation with RVR: Code(s): I48.91 - Unspecified atrial fibrillation Status: Acute Assessment and Plan: Appears to be new onset atrial fibrillation with rapid ventricular response. Echo showing EF 55-60% with normal diastolic function. Moderate pulmonary HTN noted as well (48mmHg). continue 240 mg Cardizem PO. I will add p.r.n. IV Lopressor (5) Elevated troponin: Code(s): R79.89 - Other specified abnormal findings of blood chemistry Status: Acute Assessment and Plan: Troponin peaked at 0.076. Likely secondary to rapid AFib. Cardiology is following. (6) COPD exacerbation: Code(s): J44.1 - Chronic obstructive pulmonary disease with (acute) exacerbation Status: Acute Assessment and Plan: Stable. Continue bronchodilators prn. (7) Polycythemia vera: Code(s): D45 - Polycythemia vera Status: Acute Assessment and Plan: Stable. negative occult blood to investigate the anemia. Iron studies consistent with iron deficiency. There is no active bleeding at this time. Ruxolitinib on hold. Monitor HH closely. (8) Alcohol abuse: Code(s): F10.10 - Alcohol abuse, uncomplicated Status: Chronic Assessment and Plan: CIWA protocol. Thiamine IV daily. CIWA up to 7 overnight. Ativan available for withdrawal prophylaxis and has been requiring Ativan periodically. Could be explaining some of his confusion. (9) GERD (gastroesophageal reflux disease): Qualifiers: Esophagitis presence: esophagitis presence not specified Qualified Code(s): K21.9 - Gastro-esophageal reflux disease without esophagitis Code(s): K21.9 - Gastro-esophageal reflux disease without esophagitis Status: Chronic Assessment and Plan: Stable. Continue Protonix. (10) Electrolyte abnormality: Code(s): E87.8 - Other disorders of electrolyte and fluid balance, not elsewhere classified Status: Acute Assessment and Plan: replace low potassium and phosphate (11) DVT prophylaxis: Code(s): Z29.9 - Encounter for prophylactic measures, unspecified Status: Acute Assessment and Plan: continue Lovenox Additional Plan I tried to have discussion with patient regarding goals of care but he does not appear to have insight into his disease. Called and spoke to patient's daughter who also told me that patient has been conflicting in the past in in his discussions with her regarding how aggressive care he wants in case his health deteriorates. She will dis
[2020-08-02] MEDS: METOPROLOL TARTRATE INJ 5 MG/5 ML VIAL IV PUSH ×3 (14:12→23:48)
[2020-08-02] MEDS: REMDESIVIR 100 MG/NS 250 ML 100 MG/250 ML BAG 250 MG IVPB (16:29)
[2020-08-02 17:28] LABS: Anion Gap 8 mmol/L (8-16); Blood Urea Nitrogen 32 mg/dL (9-20); Calcium 7.7 mg/dL (8.4-10.2); Carbon Dioxide 27 mmol/L (22-30); Chloride 107 mmol/L (98-107); Estimated CRCL calculation 78 ml/min; Estimated Glomerular Filt Rate > 60; Glucose 119 mg/dL (75-110); Potassium 2.9 mmol/L (3.4-5.0); Sodium 142 mmol/L (137-145)
--- NOTE | 2020-08-02 17:55 | PC.NURSE ---
Notified Dr. Linares of patient's potassium of 2.9 after 40meq of IV potassium. New order for 40meq of PO potassium now and 40meq of PO potassium in 4 hours
[2020-08-02] MEDS: POTASSIUM CHLORIDE 20 MEQ TABLET 40 MEQ PO ×2 (18:27→21:20)
[2020-08-02] MEDS: ENOXAPARIN 40 MG/0.4 ML SYRINGE SUB-Q (20:07)
[2020-08-02] MEDS: LEVALBUTEROL HFA (*SP) 15 GM INHALER 2 PUFF INHALATION (21:11)
[2020-08-03] VITALS (31 sets, daily range): BP systolic 97–137; BP diastolic 71–108; PULSE 70–148; RESP 20–25; TEMP 35.6–36.5; O2SAT 90–96
[2020-08-03] MEDS: dilTIAZem HCl INJ 25 MG/5 ML VIAL 10 MG IV PUSH ×2 (01:30→11:46)
[2020-08-03 03:55] LABS: Hematocrit 31.2 % (42.0-52.0); Hemoglobin 9.5 g/dL (14.0-18.0); Mean Corpuscular HGB Conc 30.4 g/dl (32-36); Mean Corpuscular Hemoglobin 22.5 pg (26-34); Mean Corpuscular Volume 73.9 fl (80-100); Mean Platelet Volume 10.8 fl (7.4-10.4); Platelet Count Result 552 k/mm3 (150-375); Red Blood Count 4.22 M/mm3 (4.6-6.20); Red Cell Distribution Width 19.9 % (11.5-14.5); White Blood Count 11.9 K/mm3 (4.5-10.0)
[2020-08-03 04:02] LABS: Alanine Aminotransferase 17 U/L (4-50); Albumin Level 3.4 g/dL (3.5-5.1); Alkaline Phosphatase 54 U/L (38-126); Anion Gap 4 mmol/L (8-16); Aspartate Amino Transferase 37 U/L (17-59); Blood Urea Nitrogen 37 mg/dL (9-20); CRP 1.8 mg/dL (<1.0); Calcium 8.4 mg/dL (8.4-10.2); Carbon Dioxide 30 mmol/L (22-30); Chloride 111 mmol/L (98-107); D Dimer 2.45 ug/mL (<0.48); Estimated CRCL calculation 78 ml/min; Estimated Glomerular Filt Rate > 60; Glucose 124 mg/dL (75-110); Magnesium 2.2 mg/dL (1.6-2.3); Potassium 3.7 mmol/L (3.4-5.0); Sodium 145 mmol/L (137-145)
[2020-08-03] MEDS: FLUTICASONE/SALMETEROL 45-21 MCG INHALER 1 PUFF 2 PUFF INHALATION ×2 (08:19→21:28)
[2020-08-03] MEDS: FUROSEMIDE INJ 40 MG/4 ML VIAL IV PUSH (08:41)
[2020-08-03] MEDS: DEXAMETHASONE SOD PHOS INJ 4 MG/ML VIAL 6 MG IV PUSH (08:41)
[2020-08-03] MEDS: PANTOPRAZOLE 40 MG TABLET PO (08:42)
[2020-08-03] MEDS: ASPIRIN 81 MG ENTERIC TABLET PO (08:42)
[2020-08-03] MEDS: THIAMINE HCL 100 MG TABLET PO (08:42)
[2020-08-03] MEDS: TAMSULOSIN HCL 0.4 MG CAPSULE PO (08:42)
[2020-08-03] MEDS: guaiFENesin 12 HR 600 MG TABCR PO (08:42)
[2020-08-03] MEDS: METOPROLOL TARTRATE INJ 5 MG/5 ML VIAL IV PUSH ×3 (08:44→17:09)
--- NOTE | 2020-08-03 09:59 | PM.IMPN ---
Progress Note: A&P Assessment and Plan (1) Acute and chronic respiratory failure: Code(s): J96.20 - Acute and chronic respiratory failure, unspecified whether with hypoxia or hypercapnia Status: Acute Assessment and Plan: Patient requiring increasing O2 from baseline. Currently at 7L HFNC. Did receive Lasix x1 yesterday. Continue current management for COVID 19. Wean O2 as tolerated back to baseline. (2) Pneumonia due to COVID-19 virus: Code(s): U07.1 - COVID-19; J12.89 - Other viral pneumonia Status: Acute Assessment and Plan: Since his oxygen requirement has increased from baseline, dexamethasone and remdesivir started. Monitor liver enzymes while on remdesivir. (3) Chronic respiratory failure: Qualifiers: Respiratory failure complication: unspecified whether with hypoxia or hypercapnia Qualified Code(s): J96.10 - Chronic respiratory failure, unspecified whether with hypoxia or hypercapnia Code(s): J96.10 - Chronic respiratory failure, unspecified whether with hypoxia or hypercapnia Status: Chronic Assessment and Plan: Patient with chronic hypoxemic respiratory failure and uses 1L O2 at rest and 4L with exertion at home. RN states patient mostly on 4L at home. Will need home O2 evaluation at time of discharge. (4) Atrial fibrillation with RVR: Code(s): I48.91 - Unspecified atrial fibrillation Status: Acute Assessment and Plan: Appears to be new onset atrial fibrillation with rapid ventricular response. Echo showing EF 55-60% with normal diastolic function. Moderate pulmonary HTN noted as well (48mmHg). 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 Patient currently on a Cardizem drip. He has metoprolol IV as needed for tachycardia. Heart rate currently controlled. Cardiology following. Anticoagulation on hold. (5) Elevated troponin: Code(s): R79.89 - Other specified abnormal findings of blood chemistry Status: Acute Assessment and Plan: Troponin peaked at 0.076. Likely secondary to rapid AFib. Cardiology is following. (6) COPD exacerbation: Code(s): J44.1 - Chronic obstructive pulmonary disease with (acute) exacerbation Status: Acute Assessment and Plan: Stable. Continue bronchodilators prn. (7) Polycythemia vera: Code(s): D45 - Polycythemia vera Status: Acute Assessment and Plan: Stable. Negative occult blood. Iron studies consistent with iron deficiency. There is no active bleeding at this time. Ruxolitinib on hold. Continue to monitor H&H. (8) Alcohol abuse: Code(s): F10.10 - Alcohol abuse, uncomplicated Status: Chronic Assessment and Plan: CIWA protocol. Thiamine IV daily. CIWA up to 7 this morning. Ativan available for withdrawal prophylaxis and has been requiring Ativan periodically. Could be explaining some of his confusion. (9) GERD (gastroesophageal reflux disease): Qualifiers: Esophagitis presence: esophagitis presence not specified Qualified Code(s): K21.9 - Gastro-esophageal reflux disease without esophagitis Code(s): K21.9 - Gastro-esophageal reflux disease without esophagitis Status: Chronic Assessment and Plan: Stable. Continue Protonix. (10) Electrolyte abnormality: Code(s): E87.8 - Other disorders of electrolyte and fluid balance, not elsewhere classified Status: Acute Assessment and Plan: potassium stable at 3.7. Magnesium normal at 2.2. Continue to monitor. (11) DVT prophylaxis: Code(s): Z29.9 - Encounter for prophylactic measures, unspecified Status: Acute Assessment and Plan: Continue Lovenox Subjective Date/time seen: 08/03/20 09:59 Interval history: Date of service: 08/03 74yo male with chronic respiratory failure (4L) and COPD here for confusion and fever and found to have COVID.
--- NOTE | 2020-08-03 10:37 | PC.NURSE ---
Notified Nevin Manzanares NP of patient's heart rate sustaining in the 140's. BP 117/72. 5mg IVP metoprolol given at 0844. Order is for q4hr. Nevin Manzanares NP will notify Dr. Stein of situation. Await orders and continue to monitor.
--- NOTE | 2020-08-03 10:38 | PCDIET ---
Nutrition Follow-Up Complete: Suboptimal oral intake related to decreased appetite as evidenced by average intake of 20% of meals with poor intake reported on admission. Patient to consume 50% of meals and supplements or greater. Goal: Goal not met. Continue goal. Pt current nutrition is heart healthy + enlive TID Nutrition recommendation: Recommend 4gm Na to liberalize diet Last recorded weight is 58.6 kg (down from 62.1kg) Bowel Motility: No BM Labs Reviewed: Glucose 124, C Reactive 1.8, BUN 37 WBC 11.9, Albumin 3.4 Meds Noted:Dexamethasone, Remdesivir, Thiamin Additional Notes: Pt on a heart healthy diet with Enlive TID. Currently refusing meals. Recommend diet change to provide more food options. Wt down from last check. Enlive offered TID to provide additional nutrition. Pt may also benefit from MTV to help meet basic needs with limited PO intake at this time. Following for adequate intake and wt every five days.
--- NOTE | 2020-08-03 11:10 | PM.PNCARD ---
Progress Note: A&P Assessment and Plan (1) Atrial fibrillation with RVR: Code(s): I48.91 - Unspecified atrial fibrillation Status: Acute Assessment and Plan: ATrial fibrillation, appears to be of new onset, With more difficult to control heart rate recently Despite Cardizem drip at 10 milligrams/hour and p.r.n. metoprolol.. May be related to COVID infection + Etoh TSH is low but was normal in June. Echo = normal LV function w/ no significant valve disease. Appears to have an iron-deficiency anemia and is not being anticoagulated at this time. Will give another 10 mg Cardizem IV push in increase the drip to 15 milligrams/hour. If that does not work plus switch to amiodarone. (2) Elevated troponin: Code(s): R79.89 - Other specified abnormal findings of blood chemistry Status: Acute Assessment and Plan: Mildly elevated troponin w/o CP or ischemic EKG changes. Likely 2nd COVID -19 infection. (3) Pneumonia due to COVID-19 virus: Code(s): U07.1 - COVID-19; J12.89 - Other viral pneumonia Status: Acute Assessment and Plan: On high-flow O2 . (4) Alcohol abuse: Code(s): F10.10 - Alcohol abuse, uncomplicated Status: Chronic Assessment and Plan: Had some withdrawal earlier this hospitalization. H/O elevated ammonia levels but normal on this admission. Subjective Date/time seen: 08/03/20 11:10 Follow-up for atrial fibrillation, new onset. Not anticoagulated because of microcytic anemia. Patient is COVID positive on high-flow oxygen. visit: 08/01/2020 Had problems w/ Etoh withdrawal last night and was given Ativan. Sleepy and lethargic today. Still on high-flow O2. Not eating much. BP occ low. Heart rate controlled with p.o. Cardizem Tele = a fib HR 70-90's, occ PVCs and sometimes a triplet. ECHO = EF 55-60%, no significant valve disease, RVSP 48 mmHg consistent with moderate pulmonary hypertension. Date of service: 08/03/2020 Had more problems with AFib RVR yesterday treated with p.r.n. IV Lopressor, which he response to but only transiently. However heart rate is running in the 140s and he was started on a Cardizem drip at 10 milligrams/hour but without much response. Systolic BP running 107-120'smmHg, sometimes lower. O2 sat 91% on high-flow nasal cannula 7 liters/minute. Started on IV furosemide for volume overload. telemetry: AFib and atrial flutter. RVR, heart rate in the 140s Review of Systems Review of Systems: Narrative: review of systems was obtained from the patient's nurse and EMR ROS unobtainable: Yes unobtainable due to medical condition and unobtainable due to mental status Constitutional: Constitutional: Reports fatigue and Reports weakness ENT: Denies epistaxis Cardiovascular: Cardiovascular: Denies chest pain, Denies pedal edema and Reports palpitations Respiratory: Respiratory: Denies hemoptysis and Reports dyspnea Gastrointestinal: Gastrointestinal: Denies abdominal pain Genitourinary: Genitourinary: Denies dysuria Musculoskeletal: Musculoskeletal: Reports no additional musculoskeletal complaints Integumentary/Breasts: Skin/Breast: Denies wounds Neurologic: Reports confusion Psychiatric: Psychiatric: Reports no additional psychiatric complaints Exam Const: General: no acute distress and uncomfortable ( mildly tachypneic) HENMT: Mouth: Yes dry mucous membranes Neck: Neck: supple Resp: Effort & Inspection: normal respiratory effort ( mildly tachypneic) Cardio: Rate: tachycardic GI: Inspection: non-distended Skin: Lesions: lesion noted ( some ecchymosis over the forearms) Neuro: Cognition (Neuro): abnormal cognition Extrem: General: no pedal edema Psych: Mental Status: mental
--- NOTE | 2020-08-03 11:22 | PC.NURSE ---
Spoke w/ Dr. Stein regarding patient's tachycardia. New order to give 10mg IVP of diltiazem and to increase diltiazem drip to 15mg/hr. Continue to monitor BP. If pt becomes hypotensive notified MD and may switch to Amiodarone
[2020-08-03] MEDS: REMDESIVIR 100 MG/NS 250 ML 100 MG/250 ML BAG 250 MG IVPB (15:12)
[2020-08-03] MEDS: ENOXAPARIN 40 MG/0.4 ML SYRINGE SUB-Q (21:17)
[2020-08-04] VITALS (26 sets, daily range): BP systolic 100–122; BP diastolic 59–97; PULSE 69–112; RESP 20–28; TEMP 35.6–36.1; O2SAT 86–97
[2020-08-04 05:20] LABS: Alveolar/Arterial O2 Gradient 618.4 mmHg; HCO3 ABG 25.8 mEq/l (22.0-26.0); Oxygen Content ABG 14.8 %vol (16.0-22.0); Oxygen Saturation ABG 91.1 % (95.0-100.0); PCO2 ABG 37.6 mmHg (35.0-45.0); Total Hemoglobin 12.2 g/dL (12.0-18.0); pH ABG 7.455 (7.350-7.450)
[2020-08-04 05:21] LABS: Device HIGH FLOW NASAL CANN; Fractional Inspired Oxygen 100 %; Modified Allen's Test Pass; Oxyhemoglobin 86.4 % THb (90.0-100.0); PO2 FiO2 Ratio Arterial Blood 0.57 %; Site Drawn RIGHT RADIAL
[2020-08-04 06:28] LABS: Hematocrit 26.2 % (42.0-52.0); Hemoglobin 7.7 g/dL (14.0-18.0); Mean Corpuscular HGB Conc 29.4 g/dl (32-36); Mean Corpuscular Hemoglobin 22.1 pg (26-34); Mean Corpuscular Volume 75.3 fl (80-100); Mean Platelet Volume 10.6 fl (7.4-10.4); Platelet Count Result 424 k/mm3 (150-375); Red Blood Count 3.48 M/mm3 (4.6-6.20); Red Cell Distribution Width 20.1 % (11.5-14.5); White Blood Count 17.6 K/mm3 (4.5-10.0)
[2020-08-04 06:59] LABS: Alanine Aminotransferase 17 U/L (4-50); Albumin Level 3.2 g/dL (3.5-5.1); Alkaline Phosphatase 58 U/L (38-126); Anion Gap 11 mmol/L (8-16); Aspartate Amino Transferase 26 U/L (17-59); Bilirubin,Total 1.1 mg/dL (0.2-1.3); Blood Urea Nitrogen 45 mg/dL (9-20); Calcium 7.9 mg/dL (8.4-10.2); Carbon Dioxide 27 mmol/L (22-30); Chloride 109 mmol/L (98-107); Estimated CRCL calculation 64 ml/min; Estimated Glomerular Filt Rate > 60; Glucose 231 mg/dL (75-110); Magnesium 2.1 mg/dL (1.6-2.3); Potassium 2.7 mmol/L (3.4-5.0); Sodium 147 mmol/L (137-145)
[2020-08-04] MEDS: DEXAMETHASONE SOD PHOS INJ 4 MG/ML VIAL 6 MG IV PUSH (07:48)
--- NOTE | 2020-08-04 09:04 | PCRCNOTE ---
0800 MDI not given, pt. unable to do them at this time.
--- NOTE | 2020-08-04 09:59 | PM.IMPN ---
Progress Note: A&P Assessment and Plan (1) Acute and chronic respiratory failure: Code(s): J96.20 - Acute and chronic respiratory failure, unspecified whether with hypoxia or hypercapnia Status: Acute Assessment and Plan: Patient requiring increasing O2 from baseline. ABG showing 7.45/37/57 on 15L HFNC. Currently at [facility] now Did receive Lasix x2 (08/02, 08/03). Concern for aspiration now given his malnutriotn with BMI 18 and obtunded state. WBC higher today. Continue current management for COVID 19. Make NPO. Wean O2 as tolerated back to baseline. NG tube placement for meds and nutrition. Repeat CXR. Oral care. CXR reviewed and compared to admission. LLL with increased infiltrate. Will add abx. (2) Pneumonia due to COVID-19 virus: Code(s): U07.1 - COVID-19; J12.89 - Other viral pneumonia Status: Acute Assessment and Plan: Sx began on 07/28 and tested positive 07/29. Has chronic O2 requiremnt but worsened. Dexamethasone and remdesivir started on 08/01/20 (Day 4). Monitor liver enzymes while on remdesivir. Continue supportive care. Long discussion with the daughter and she still wants intubation if needed. Comfort measures were discussed. She is okay with NG tube placement for meds and nutrition. Move to ICU. (3) Atrial fibrillation with RVR: Code(s): I48.91 - Unspecified atrial fibrillation Status: Acute Assessment and Plan: Appears to be new onset atrial fibrillation with rapid ventricular response. Echo showing EF 55-60% with normal diastolic function. Moderate pulmonary HTN noted as well (48mmHg). 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 Patient currently on a Cardizem drip at 15mg/hr. He has metoprolol IV as needed for tachycardia. Converted to NSR now. Cardiology following. Anticoagulation on hold. (4) Elevated troponin: Code(s): R79.89 - Other specified abnormal findings of blood chemistry Status: Acute Assessment and Plan: Troponin peaked at 0.076. Likely secondary to rapid AFib. Cardiology is following. (5) Chronic respiratory failure: Qualifiers: Respiratory failure complication: unspecified whether with hypoxia or hypercapnia Qualified Code(s): J96.10 - Chronic respiratory failure, unspecified whether with hypoxia or hypercapnia Code(s): J96.10 - Chronic respiratory failure, unspecified whether with hypoxia or hypercapnia Status: Chronic Assessment and Plan: Patient with chronic hypoxemic respiratory failure and uses 1L O2 at rest and 4L with exertion at home. RN states patient mostly on 4L at home. Will need home O2 evaluation at time of discharge. As above (6) COPD exacerbation: Code(s): J44.1 - Chronic obstructive pulmonary disease with (acute) exacerbation Status: Acute Assessment and Plan: Stable. Continue bronchodilators prn. (7) Polycythemia vera: Code(s): D45 - Polycythemia vera Status: Acute Assessment and Plan: Stable. Negative occult blood in June. Iron studies consistent with iron deficiency. There is no active bleeding at this time but Hgb dropped to 7.7. Ruxolitinib on hold. Monitor HH closely. (8) Alcohol abuse: Code(s): F10.10 - Alcohol abuse, uncomplicated Status: Chronic Assessment and Plan: CIWA protocol. Thiamine daily (change to IV). CIWA stable at 4. Ativan available for withdrawal prophylaxis and last dose was 36hrs ago. Will hold Ativan for now. Continue to follow (9) GERD (gastroesophageal reflux disease): Qualifiers: Esophagitis presence: esophagitis presence not specified Qualified Code(s): K21.9 - Gastro-esophageal reflux disease without esophagitis Code(s): K21.9 - Gastro-esophageal reflux disease without esophagitis Status: Chronic Assessment and Plan: Stable. Continue Protonix. (10) Electrolyte abnormality:
--- NOTE | 2020-08-04 11:42 | WPDINTPN ---
Progress Note: A&P Assessment and Plan (1) Acute and chronic respiratory failure: Code(s): J96.20 - Acute and chronic respiratory failure, unspecified whether with hypoxia or hypercapnia Status: Acute Assessment and Plan: Patient patient on oxygen at home on baseline. admitted with COVID-19 pneumonia. His respiratory failure is multifactorial with COVID-19 pneumonia, baseline severe COPD, congestive heart failure. he received Lasix last 2 days continue management for COVID-19 as mentioned below overall patient's hypoxia has worsened and he is currently on AirVo. will hold Ativan at this point that he was getting for alcohol withdrawal prevention and see if hypoxia improves . Patient is able to protect his airway at this time chest x-ray and ABG reviewed Increase in WBC could be secondary to steroids. patient started on broad-spectrum empirical antibiotics with secondary bacterial infection continue to monitor closely in ICU (2) Pneumonia due to COVID-19 virus: Code(s): U07.1 - COVID-19; J12.89 - Other viral pneumonia Status: Acute Assessment and Plan: continue dexamethasone continue remdesivir. Patient will complete his 5 day course today. Monitor liver enzymes while on remdesivir. monitor inflammatory markers conservative IV fluids (3) Atrial fibrillation with RVR: Code(s): I48.91 - Unspecified atrial fibrillation Status: Acute Assessment and Plan: Appears to be new onset atrial fibrillation with rapid ventricular response. Echo showing EF 55-60% with normal diastolic function. Moderate pulmonary HTN noted as well (48mmHg). continue IV diltiazem infusion to control heart rate continue aspirin not on anticoagulation due to anemia (4) Elevated troponin: Code(s): R79.89 - Other specified abnormal findings of blood chemistry Status: Acute Assessment and Plan: Troponin peaked at 0.076. Likely secondary to rapid AFib. Cardiology is following and no plan for further workup at this time. (5) COPD exacerbation: Code(s): J44.1 - Chronic obstructive pulmonary disease with (acute) exacerbation Status: Acute Assessment and Plan: Stable. Continue bronchodilators prn. (6) Alcohol abuse: Code(s): F10.10 - Alcohol abuse, uncomplicated Status: Chronic Assessment and Plan: continue thiamine folic acid hold Ativan at this time due to encephalopathy neurochecks (7) GERD (gastroesophageal reflux disease): Qualifiers: Esophagitis presence: esophagitis presence not specified Qualified Code(s): K21.9 - Gastro-esophageal reflux disease without esophagitis Code(s): K21.9 - Gastro-esophageal reflux disease without esophagitis Status: Chronic Assessment and Plan: Stable. Continue Protonix. (8) Electrolyte abnormality: Code(s): E87.8 - Other disorders of electrolyte and fluid balance, not elsewhere classified Status: Acute Assessment and Plan: replace low potassium and recheck patient is getting 40 mEq IV and I will order another 40 per tube (9) Acute encephalopathy: Code(s): G93.40 - Encephalopathy, unspecified Status: Acute Assessment and Plan: likely multifactorial from illness, delirium and Ativan hold further benzodiazepines at this time check ammonia level (10) Anemia: Code(s): D64.9 - Anemia, unspecified Status: Acute Assessment and Plan: no obvious bleeding but hemoglobin has dropped continue monitor hemoglobin and check again today change PPI to IV twice a day patient at risk of stress gastritis due to being on steroids, aspirin and DVT prophylaxis Lovenox (11) DVT prophylaxis: Code(s): Z29.9 - Encounter for prophylactic measures, unspecified Status: Acute Assessment and Plan: continue Lovenox subcutaneous (12) Dietary counseling
[2020-08-04] MEDS: POTASSIUM CHLORIDE 20 MEQ PACKET (FOR LIQUID) 40 MEQ FEED TUBE ×2 (12:07→18:48)
[2020-08-04] MEDS: ASPIRIN 81 MG CHEWABLE TABLET FEED TUBE (12:16)
[2020-08-04] MEDS: THIAMINE HCL 200 MG/2 ML VIAL 100 MG IV PUSH (12:16)
--- NOTE | 2020-08-04 12:34 | PCDIET ---
Nutrition Follow-Up Complete: Nutrition Diagnosis: Suboptimal oral intake related to decreased appetite as evidenced by average intake of 20% of meals with poor intake reported on admission. Nutrition Goal: Patient to consume 50% of meals and supplements or greater. Goal not met. Patient has not been eating and is on 60L Airvo with 85% FiO2. Now NPO with NG tube in place. MD order to start tube feedings. Recommend Jevity 1.2 beginning at 10mL/hr and advancing by 10mL/hr every 8 hours, as tolerated, to goal of 65mL/hr. Given 22 hour/day infusion, this will provide 1716kcal (29kcal/kg), 79g protein and 1154mL free water. Agree with 50mL water flush every 4 hours. Patient may be at risk for refeeding syndrome, hence recommendation for slow tube feeding advancement. Would continue to replace electrolytes, as appropriate. Last recorded weight is 58.3 kg which is stable with last review, but down from admission. Bowel Motility: No documented BM as of yet. Labs Reviewed: Hgb (7.7), Hct (26.2), Glu (231), K (2.7), Na (147), Alb (3.2), Opal Ca (8.54) Meds Noted: Decadron, KCl, Remdesivir, Advair Additional Notes: Buttocks macerated. If blood sugars remain elevated due to steroids would consider change to Glucerna 1.2 at 65mL/hr. Nutrition Monitoring and Evaluation: Follow up every Friday/Friday. Follow daily in ICU rounds.
[2020-08-04 13:59] LABS: Hemoglobin 9.4 g/dL (14.0-18.0)
[2020-08-04] MEDS: LIDOCAINE HCL 1% PF INJ 5 ML VIAL INFILTRATE (14:55)
[2020-08-04] MEDS: REMDESIVIR 100 MG/NS 250 ML 100 MG/250 ML BAG 250 MG IVPB (14:55)
--- NOTE | 2020-08-04 15:09 | PC.NURSE ---
Notified Dr. Cantor of patient only having 200ml of urine out with urine being dark celena in color. New order for 500ml NS infusion over 5 hours, and to increase tube feedings by 10ml q4hr instead of q8hr. Continue to monitor
[2020-08-04] MEDS: SODIUM CHLORIDE 0.9% IV 500 ML IV CONT (16:26)
[2020-08-04 16:52] LABS: Glucose Point of Care 193 (65-105)
[2020-08-04 17:29] LABS: Ammonia < 9 umol/L (9-30)
[2020-08-04 17:33] LABS: Anion Gap 4 mmol/L (8-16); Blood Urea Nitrogen 49 mg/dL (9-20); Calcium 8.1 mg/dL (8.4-10.2); Carbon Dioxide 31 mmol/L (22-30); Chloride 110 mmol/L (98-107); Estimated CRCL calculation 46 ml/min; Estimated Glomerular Filt Rate > 60; Glucose 178 mg/dL (75-110); Potassium 3.5 mmol/L (3.4-5.0); Sodium 145 mmol/L (137-145)
--- NOTE | 2020-08-04 17:55 | PC.NURSE ---
Notified Dr. Cantor of potassium level of 3.5. New order for 40meq of potassium powder through NG. Foster in AM
[2020-08-04 18:59] LABS: Hemoglobin 9.6 g/dL (14.0-18.0)
[2020-08-04] MEDS: CENTRAL LINE FLUSH 10 ML IV PUSH (19:43)
[2020-08-04] MEDS: ENOXAPARIN 40 MG/0.4 ML SYRINGE SUB-Q (20:03)
[2020-08-04] MEDS: PANTOPRAZOLE SODIUM IV 40 MG VIAL IV PUSH (20:03)
[2020-08-04] MEDS: FLUTICASONE/SALMETEROL 45-21 MCG INHALER 1 PUFF 2 PUFF INHALATION (20:59)
[2020-08-04 23:02] LABS: Glucose Point of Care 156 (65-105)
[2020-08-05] VITALS (20 sets, daily range): BP systolic 101–119; BP diastolic 61–79; PULSE 84–103; RESP 24–31; TEMP 36–36.4; O2SAT 90–97
[2020-08-05 01:31] LABS: Hemoglobin 10.8 g/dL (14.0-18.0)
[2020-08-05] MEDS: CENTRAL LINE FLUSH 10 ML IV PUSH ×3 (05:51→20:11)
[2020-08-05 06:13] LABS: Hematocrit 35.9 % (42.0-52.0); Hemoglobin 10.7 g/dL (14.0-18.0); Mean Corpuscular HGB Conc 29.8 g/dl (32-36); Mean Corpuscular Hemoglobin 21.9 pg (26-34); Mean Corpuscular Volume 73.4 fl (80-100); Mean Platelet Volume 10.7 fl (7.4-10.4); Platelet Count Result 518 k/mm3 (150-375); Red Blood Count 4.89 M/mm3 (4.6-6.20); Red Cell Distribution Width 20.1 % (11.5-14.5); White Blood Count 20.7 K/mm3 (4.5-10.0)
[2020-08-05 06:24] LABS: Alanine Aminotransferase 19 U/L (4-50); Alkaline Phosphatase 71 U/L (38-126); Anion Gap 5 mmol/L (8-16); Aspartate Amino Transferase 32 U/L (17-59); Blood Urea Nitrogen 51 mg/dL (9-20); Calcium 8.4 mg/dL (8.4-10.2); Carbon Dioxide 28 mmol/L (22-30); Chloride 113 mmol/L (98-107); Estimated CRCL calculation 46 ml/min; Estimated Glomerular Filt Rate > 60; Glucose 149 mg/dL (75-110); Magnesium 2.4 mg/dL (1.6-2.3); Potassium 4.2 mmol/L (3.4-5.0); Sodium 146 mmol/L (137-145)
[2020-08-05 06:32] LABS: NT Pro B Type Natriuretic Pept 1610 PG/ML (5-100)
[2020-08-05] MEDS: FLUTICASONE/SALMETEROL 45-21 MCG INHALER 1 PUFF 2 PUFF INHALATION ×2 (08:06→20:19)
[2020-08-05] MEDS: PANTOPRAZOLE SODIUM IV 40 MG VIAL IV PUSH ×2 (08:26→20:11)
[2020-08-05] MEDS: FOLIC ACID 1 MG TABLET FEED TUBE (08:26)
[2020-08-05] MEDS: ASPIRIN 81 MG CHEWABLE TABLET FEED TUBE (08:26)
[2020-08-05] MEDS: THIAMINE HCL 200 MG/2 ML VIAL 100 MG IV PUSH (08:27)
[2020-08-05] MEDS: DEXAMETHASONE SOD PHOS INJ 4 MG/ML VIAL 6 MG IV PUSH (08:27)
--- NOTE | 2020-08-05 10:22 | WPDINTPN ---
Progress Note: A&P Assessment and Plan (1) Acute and chronic respiratory failure: Code(s): J96.20 - Acute and chronic respiratory failure, unspecified whether with hypoxia or hypercapnia Status: Acute Assessment and Plan: Patient patient on oxygen at home on baseline. admitted with COVID-19 pneumonia. His respiratory failure is multifactorial with COVID-19 pneumonia, baseline severe COPD, congestive heart failure. he received Lasix for few days but now off as he does not appear to be volume overloaded at this time continue management for COVID-19 as mentioned below overall patient's hypoxia has worsened and he is currently on AirVo. Patient is able to protect his airway at this time chest x-ray and ABG reviewed Increase in WBC could be secondary to steroids. but patient started on broad-spectrum empirical antibiotics for possible secondary bacterial infection continue to monitor closely in ICU (2) Pneumonia due to COVID-19 virus: Code(s): U07.1 - COVID-19; J12.89 - Other viral pneumonia Status: Acute Assessment and Plan: continue dexamethasone completed course of remdesivir. monitor inflammatory markers conservative IV fluids (3) Atrial fibrillation with RVR: Code(s): I48.91 - Unspecified atrial fibrillation Status: Acute Assessment and Plan: Appears to be new onset atrial fibrillation with rapid ventricular response. Echo showing EF 55-60% with normal diastolic function. Moderate pulmonary HTN noted as well (48mmHg). continue IV diltiazem infusion to control heart rate continue aspirin not on anticoagulation due to anemia (4) Elevated troponin: Code(s): R79.89 - Other specified abnormal findings of blood chemistry Status: Acute Assessment and Plan: Troponin peaked at 0.076. Likely secondary to rapid AFib. Cardiology is following and no plan for further workup at this time. (5) COPD exacerbation: Code(s): J44.1 - Chronic obstructive pulmonary disease with (acute) exacerbation Status: Acute Assessment and Plan: Stable. Continue bronchodilators prn. (6) Alcohol abuse: Code(s): F10.10 - Alcohol abuse, uncomplicated Status: Chronic Assessment and Plan: continue thiamine folic acid hold Ativan at this time due to encephalopathy neurochecks (7) GERD (gastroesophageal reflux disease): Qualifiers: Esophagitis presence: esophagitis presence not specified Qualified Code(s): K21.9 - Gastro-esophageal reflux disease without esophagitis Code(s): K21.9 - Gastro-esophageal reflux disease without esophagitis Status: Chronic Assessment and Plan: Stable. Continue Protonix. (8) Electrolyte abnormality: Code(s): E87.8 - Other disorders of electrolyte and fluid balance, not elsewhere classified Status: Acute Assessment and Plan: potassium was replaced yesterday and is in normal range today monitor (9) Acute encephalopathy: Code(s): G93.40 - Encephalopathy, unspecified Status: Acute Assessment and Plan: likely multifactorial from illness, delirium and Ativan him moving withhold on Ativan ammonia level was normal (10) Anemia: Code(s): D64.9 - Anemia, unspecified Status: Acute Assessment and Plan: no obvious bleeding but hemoglobin has dropped but is now stable continue monitor hemoglobin continue PPI IV twice a day patient at risk of stress gastritis due to being on steroids, aspirin and DVT prophylaxis Lovenox (11) DVT prophylaxis: Code(s): Z29.9 - Encounter for prophylactic measures, unspecified Status: Acute Assessment and Plan: continue Lovenox subcutaneous (12) Dietary counseling and surveillance: Code(s): Z71.3 - Dietary counseling and surveillance Status: Acute Assessment and Plan: NG tube in place
[2020-08-05 12:42] LABS: Glucose Point of Care 125 (65-105)
--- NOTE | 2020-08-05 14:03 | PM.IMPN ---
Progress Note: A&P Assessment and Plan (1) Acute and chronic respiratory failure: Code(s): J96.20 - Acute and chronic respiratory failure, unspecified whether with hypoxia or hypercapnia Status: Acute Assessment and Plan: Patient requiring increasing O2 from baseline. ABG showing 7.45/37/57 on 15L HFNC. Currently at [facility] now. Did receive Lasix x2 (08/02, 08/03). Concern for aspiration now given his malnutrition with BMI 18 and obtunded state. Abx started. WBC higher again today. Continue current management for COVID 19. NG tube placed and tube feedings started. CXR reviewed showing no significant change. Wean O2 as tolerated back to baseline. (2) Pneumonia due to COVID-19 virus: Code(s): U07.1 - COVID-19; J12.89 - Other viral pneumonia Status: Acute Assessment and Plan: Sx began on 07/28 and tested positive 07/29. Has chronic O2 requiremnt but worsened. Dexamethasone started on 08/01/20 (Day 5). Remdesivir started on 08/01/20 and completed 5 Day 5 course. Continue supportive care. (3) Atrial fibrillation with RVR: Code(s): I48.91 - Unspecified atrial fibrillation Status: Acute Assessment and Plan: Appears to be new onset atrial fibrillation with rapid ventricular response. Echo showing EF 55-60% with normal diastolic function. Moderate pulmonary HTN noted as well (48mmHg). 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 Patient remains on a Cardizem drip at 15mg/hr. He has metoprolol IV as needed for tachycardia. Converted to NSR but appears to be in/out of AFib. Cardiology following. Anticoagulation on hold. (4) Elevated troponin: Code(s): R79.89 - Other specified abnormal findings of blood chemistry Status: Acute Assessment and Plan: Troponin peaked at 0.076. Likely secondary to rapid AFib. Cardiology is following. (5) Chronic respiratory failure: Qualifiers: Respiratory failure complication: unspecified whether with hypoxia or hypercapnia Qualified Code(s): J96.10 - Chronic respiratory failure, unspecified whether with hypoxia or hypercapnia Code(s): J96.10 - Chronic respiratory failure, unspecified whether with hypoxia or hypercapnia Status: Chronic Assessment and Plan: Patient with chronic hypoxemic respiratory failure and uses 1L O2 at rest and 4L with exertion at home. RN states patient mostly on 4L at home. Will need home O2 evaluation at time of discharge. As above (6) COPD exacerbation: Code(s): J44.1 - Chronic obstructive pulmonary disease with (acute) exacerbation Status: Acute Assessment and Plan: Stable. Continue bronchodilators prn. (7) Polycythemia vera: Code(s): D45 - Polycythemia vera Status: Acute Assessment and Plan: Stable. Negative occult blood in June. Iron studies consistent with iron deficiency. There is no active bleeding at this time but Hgb dropped to 7.7 yesterday that may have been a lab error because repeat was 9.4 and Hgb today is 10.7. Ruxolitinib on hold. Continue to monitor HH. (8) Alcohol abuse: Code(s): F10.10 - Alcohol abuse, uncomplicated Status: Chronic Assessment and Plan: CIWA protocol. Thiamine IV daily. CIWA stable at 4. Ativan on hold for now. Continue to follow (9) GERD (gastroesophageal reflux disease): Qualifiers: Esophagitis presence: esophagitis presence not specified Qualified Code(s): K21.9 - Gastro-esophageal reflux disease without esophagitis Code(s): K21.9 - Gastro-esophageal reflux disease without esophagitis Status: Chronic Assessment and Plan: Stable. Continue Protonix. (10) Electrolyte abnormality: Code(s): E87.8 - Other disorders of electrolyte and fluid balance, not elsewhere classified Status: Acute Assessment and Plan: Potassium better at 4.2. Magnesium normal at 2.4. Continue to m
[2020-08-05 18:34] LABS: Glucose Point of Care 165 (65-105)
[2020-08-05] MEDS: ENOXAPARIN 40 MG/0.4 ML SYRINGE SUB-Q (20:11)
[2020-08-05] MEDS: LEVALBUTEROL HFA (*SP) 15 GM INHALER 2 PUFF INHALATION (20:23)
[2020-08-05 23:43] LABS: Glucose Point of Care 173 (65-105)
[2020-08-06] VITALS (24 sets, daily range): BP systolic 98–116; BP diastolic 55–75; PULSE 70–105; RESP 18–30; TEMP 35.7–36.6; O2SAT 90–99
[2020-08-06] MEDS: CENTRAL LINE FLUSH 10 ML IV PUSH ×3 (05:20→19:48)
[2020-08-06 06:08] LABS: Hematocrit 35.4 % (42.0-52.0); Mean Corpuscular HGB Conc 28.2 g/dl (32-36); Mean Corpuscular Hemoglobin 21.9 pg (26-34); Mean Corpuscular Volume 77.5 fl (80-100); Mean Platelet Volume 11.7 fl (7.4-10.4); Platelet Count Result 489 k/mm3 (150-375); Red Blood Count 4.57 M/mm3 (4.6-6.20); Red Cell Distribution Width 21.1 % (11.5-14.5); White Blood Count 22.1 K/mm3 (4.5-10.0)
[2020-08-06 07:28] LABS: Glucose Point of Care 164 (65-105)
[2020-08-06 07:54] LABS: Alanine Aminotransferase 18 U/L (4-50); Albumin Level 2.6 g/dL (3.5-5.1); Alkaline Phosphatase 84 U/L (38-126); Anion Gap 6 mmol/L (8-16); Aspartate Amino Transferase 25 U/L (17-59); Bilirubin,Total 0.6 mg/dL (0.2-1.3); Blood Urea Nitrogen 69 mg/dL (9-20); Calcium 7.7 mg/dL (8.4-10.2); Carbon Dioxide 28 mmol/L (22-30); Chloride 113 mmol/L (98-107); Estimated CRCL calculation 42 ml/min; Estimated Glomerular Filt Rate > 60; Glucose 156 mg/dL (75-110); Magnesium 2.5 mg/dL (1.6-2.3); Potassium 4.4 mmol/L (3.4-5.0); Sodium 147 mmol/L (137-145)
[2020-08-06] MEDS: PANTOPRAZOLE SODIUM IV 40 MG VIAL IV PUSH ×2 (08:03→19:48)
[2020-08-06] MEDS: ASPIRIN 81 MG CHEWABLE TABLET FEED TUBE (08:03)
[2020-08-06] MEDS: FOLIC ACID 1 MG TABLET FEED TUBE (08:03)
[2020-08-06] MEDS: DEXAMETHASONE SOD PHOS INJ 4 MG/ML VIAL 6 MG IV PUSH (08:03)
[2020-08-06] MEDS: THIAMINE HCL 200 MG/2 ML VIAL 100 MG IV PUSH (08:03)
--- NOTE | 2020-08-06 08:40 | WPDINTPN ---
Progress Note: A&P Assessment and Plan (1) Acute and chronic respiratory failure: Code(s): J96.20 - Acute and chronic respiratory failure, unspecified whether with hypoxia or hypercapnia Status: Acute Assessment and Plan: Patient patient on oxygen at home on baseline. admitted with COVID-19 pneumonia. His respiratory failure is multifactorial with COVID-19 pneumonia, baseline severe COPD, congestive heart failure. he received Lasix for few days but now off as he does not appear to be volume overloaded at this time continue management for COVID-19 as mentioned below overall patient's hypoxia has worsened and he is currently on AirVo. Patient is able to protect his airway at this time chest x-ray and ABG reviewed Increase in WBC could be secondary to steroids. but patient started on broad-spectrum empirical antibiotics for possible secondary bacterial infection continue to monitor closely in ICU will repeat cultures if patient is febrile (2) Pneumonia due to COVID-19 virus: Code(s): U07.1 - COVID-19; J12.89 - Other viral pneumonia Status: Acute Assessment and Plan: continue dexamethasone completed course of remdesivir. monitor inflammatory markers conservative IV fluids (3) Atrial fibrillation with RVR: Code(s): I48.91 - Unspecified atrial fibrillation Status: Acute Assessment and Plan: Appears to be new onset atrial fibrillation with rapid ventricular response. Echo showing EF 55-60% with normal diastolic function. Moderate pulmonary HTN noted as well (48mmHg). continue IV diltiazem infusion to control heart rate and will start p.o. to try to transition off Cardizem infusion continue aspirin not on anticoagulation due to anemia (4) Elevated troponin: Code(s): R79.89 - Other specified abnormal findings of blood chemistry Status: Acute Assessment and Plan: Troponin peaked at 0.076. Likely secondary to rapid AFib. Cardiology is following and no plan for further workup at this time. (5) COPD exacerbation: Code(s): J44.1 - Chronic obstructive pulmonary disease with (acute) exacerbation Status: Acute Assessment and Plan: Stable. Continue bronchodilators prn. (6) Alcohol abuse: Code(s): F10.10 - Alcohol abuse, uncomplicated Status: Chronic Assessment and Plan: continue thiamine folic acid hold Ativan at this time due to encephalopathy neurochecks (7) GERD (gastroesophageal reflux disease): Qualifiers: Esophagitis presence: esophagitis presence not specified Qualified Code(s): K21.9 - Gastro-esophageal reflux disease without esophagitis Code(s): K21.9 - Gastro-esophageal reflux disease without esophagitis Status: Chronic Assessment and Plan: Stable. Continue Protonix. (8) Electrolyte abnormality: Code(s): E87.8 - Other disorders of electrolyte and fluid balance, not elsewhere classified Status: Acute Assessment and Plan: potassium was replaced yesterday and is in normal range today increased sodium and chloride suggest free water loss will increase free water flush with tube feeds (9) Acute encephalopathy: Code(s): G93.40 - Encephalopathy, unspecified Status: Acute Assessment and Plan: likely multifactorial from illness, delirium and Ativan him moving withhold on Ativan ammonia level was normal (10) Anemia: Code(s): D64.9 - Anemia, unspecified Status: Acute Assessment and Plan: no obvious bleeding but hemoglobin has dropped but is now stable continue monitor hemoglobin continue PPI IV twice a day patient at risk of stress gastritis due to being on steroids, aspirin and DVT prophylaxis Lovenox (11) DVT prophylaxis: Code(s): Z29.9 - Encounter for prophylactic measures, unspecified Status: Acute Assessment and Plan: chrisitana
--- NOTE | 2020-08-06 09:37 | PC.NURSE ---
Paulan changing cardizem drip this morning; found pt to be receiving 100mg in a 50ml bag rather than 100mg in 100ml as ordered. Pharmacy notified and correct bag received. Old bag sent to pharmacy. Dr andrews notified.
[2020-08-06] MEDS: FLUTICASONE/SALMETEROL 45-21 MCG INHALER 1 PUFF 2 PUFF INHALATION ×2 (09:39→20:21)
[2020-08-06] MEDS: dilTIAZem HCL 60 MG TABLET PO ×3 (12:09→23:18)
[2020-08-06 14:24] LABS: Glucose Point of Care 161 (65-105)
--- NOTE | 2020-08-06 16:04 | PM.IMPN ---
Progress Note: A&P Assessment and Plan (1) Acute and chronic respiratory failure: Code(s): J96.20 - Acute and chronic respiratory failure, unspecified whether with hypoxia or hypercapnia Status: Acute Assessment and Plan: Patient requiring increasing O2 from baseline. ABG showing 7.45/37/57 on 15L HFNC. Currently at Airvo now. Did receive Lasix x2 (08/02, 08/03). Concern for aspiration now given his malnutrition with BMI 18 and obtunded state. Abx started. WBC higher again at 22K. Continue current management for COVID 19. NG tube placed and tolerating tube feedings. CXR reviewed showing no significant change. Wean O2 as tolerated back to baseline. Discussed with dtr. (2) Pneumonia due to COVID-19 virus: Code(s): U07.1 - COVID-19; J12.89 - Other viral pneumonia Status: Acute Assessment and Plan: Sx began on 07/28 and tested positive 07/29. Has chronic O2 requirement but worsened due to COVID-19. Dexamethasone started on 08/01/20 (Day 6). Remdesivir started on 08/01/20 and completed 5 Day course. Continue supportive care. (3) Atrial fibrillation with RVR: Code(s): I48.91 - Unspecified atrial fibrillation Status: Acute Assessment and Plan: Appears to be new onset atrial fibrillation with rapid ventricular response. Echo showing EF 55-60% with normal diastolic function. Moderate pulmonary HTN noted as well (48mmHg). 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 Converted to NSR but appears to be in/out of AFib. Patient being transitioned to Cardizem via NG tube. He has metoprolol IV as needed for tachycardia (last dose 08/03). Appreciate Cardiology input. Anticoagulation on hold. (4) Acute encephalopathy: Code(s): G93.40 - Encephalopathy, unspecified Status: Acute Assessment and Plan: Patient with altered mental status most likely related to COVID and acute hypoxia. Slightly better. No focal weakness but will need CT brain when able. (5) Elevated troponin: Code(s): R79.89 - Other specified abnormal findings of blood chemistry Status: Acute Assessment and Plan: Troponin peaked at 0.076. Likely secondary to rapid AFib. Cardiology is following. (6) Chronic respiratory failure: Qualifiers: Respiratory failure complication: unspecified whether with hypoxia or hypercapnia Qualified Code(s): J96.10 - Chronic respiratory failure, unspecified whether with hypoxia or hypercapnia Code(s): J96.10 - Chronic respiratory failure, unspecified whether with hypoxia or hypercapnia Status: Chronic Assessment and Plan: Patient with chronic hypoxemic respiratory failure and uses 1L O2 at rest and 4L with exertion at home. RN states patient mostly on 4L at home. Will need home O2 evaluation at time of discharge. As above (7) COPD exacerbation: Code(s): J44.1 - Chronic obstructive pulmonary disease with (acute) exacerbation Status: Acute Assessment and Plan: Stable. Continue bronchodilators prn. (8) Polycythemia vera: Code(s): D45 - Polycythemia vera Status: Acute Assessment and Plan: Stable. Negative occult blood in June. Iron studies consistent with iron deficiency. There is no active bleeding at this time but Hgb dropped to 7.7 on 08/04 that may have been a lab error because repeat was 9.4 and Hgb today is 10.0. Ruxolitinib on hold. Continue to monitor HH.
[2020-08-06 17:18] LABS: Vancomycin Trough 11.5 ug/mL (10.0-20.0)
[2020-08-06 18:42] LABS: Glucose Point of Care 158 (65-105)
[2020-08-06] MEDS: ENOXAPARIN 40 MG/0.4 ML SYRINGE SUB-Q (19:48)
[2020-08-06 23:28] LABS: Glucose Point of Care 170 (65-105)
[2020-08-07] VITALS (18 sets, daily range): BP systolic 97–130; BP diastolic 52–78; PULSE 52–104; RESP 17–24; TEMP 36.4–36.8; O2SAT 93–97
[2020-08-07 04:14] LABS: Hematocrit 33.1 % (42.0-52.0); Hemoglobin 9.7 g/dL (14.0-18.0); Mean Corpuscular HGB Conc 29.3 g/dl (32-36); Mean Corpuscular Hemoglobin 22.4 pg (26-34); Mean Corpuscular Volume 76.4 fl (80-100); Mean Platelet Volume 11.6 fl (7.4-10.4); Platelet Count Result 469 k/mm3 (150-375); Red Blood Count 4.33 M/mm3 (4.6-6.20); Red Cell Distribution Width 19.9 % (11.5-14.5); White Blood Count 25.1 K/mm3 (4.5-10.0)
[2020-08-07 04:26] LABS: Alanine Aminotransferase 27 U/L (4-50); Albumin Level 2.5 g/dL (3.5-5.1); Alkaline Phosphatase 94 U/L (38-126); Anion Gap 2 mmol/L (8-16); Aspartate Amino Transferase 34 U/L (17-59); Bilirubin,Total 0.5 mg/dL (0.2-1.3); Blood Urea Nitrogen 61 mg/dL (9-20); Calcium 7.7 mg/dL (8.4-10.2); Carbon Dioxide 33 mmol/L (22-30); Chloride 111 mmol/L (98-107); Estimated CRCL calculation 53 ml/min; Estimated Glomerular Filt Rate > 60; Glucose 152 mg/dL (75-110); Magnesium 2.8 mg/dL (1.6-2.3); Potassium 4.7 mmol/L (3.4-5.0); Sodium 146 mmol/L (137-145)
[2020-08-07] MEDS: dilTIAZem HCL 60 MG TABLET PO ×3 (05:01→17:10)
[2020-08-07] MEDS: CENTRAL LINE FLUSH 10 ML IV PUSH ×3 (06:44→19:59)
[2020-08-07] MEDS: ASPIRIN 81 MG CHEWABLE TABLET FEED TUBE (08:06)
[2020-08-07] MEDS: DEXAMETHASONE SOD PHOS INJ 4 MG/ML VIAL 6 MG IV PUSH (08:07)
[2020-08-07] MEDS: PANTOPRAZOLE SODIUM IV 40 MG VIAL IV PUSH ×2 (08:07→19:58)
[2020-08-07] MEDS: FOLIC ACID 1 MG TABLET FEED TUBE (08:08)
[2020-08-07] MEDS: THIAMINE HCL 200 MG/2 ML VIAL 100 MG IV PUSH (08:08)
[2020-08-07] MEDS: FLUTICASONE/SALMETEROL 45-21 MCG INHALER 1 PUFF 2 PUFF INHALATION ×2 (08:18→20:47)
--- NOTE | 2020-08-07 08:46 | WPDINTPN ---
Progress Note: A&P Assessment and Plan (1) Acute and chronic respiratory failure: Code(s): J96.20 - Acute and chronic respiratory failure, unspecified whether with hypoxia or hypercapnia Status: Acute Assessment and Plan: Patient patient on oxygen at home on baseline. admitted with COVID-19 pneumonia. His respiratory failure is multifactorial with COVID-19 pneumonia, baseline severe COPD, congestive heart failure. he received Lasix for few days but now off as he does not appear to be volume overloaded at this time continue management for COVID-19 as mentioned below overall patient's hypoxia has worsened and he is currently on AirVo. Patient is able to protect his airway at this time chest x-ray and ABG reviewed Increase in WBC could be secondary to steroids but patient started on broad-spectrum empirical antibiotics for possible secondary bacterial infection continue to monitor closely in ICU will repeat cultures if patient is febrile (2) Pneumonia due to COVID-19 virus: Code(s): U07.1 - COVID-19; J12.89 - Other viral pneumonia Status: Acute Assessment and Plan: continue dexamethasone completed course of remdesivir. monitor inflammatory markers conservative IV fluids (3) Atrial fibrillation with RVR: Code(s): I48.91 - Unspecified atrial fibrillation Status: Acute Assessment and Plan: Appears to be new onset atrial fibrillation with rapid ventricular response. Echo showing EF 55-60% with normal diastolic function. Moderate pulmonary HTN noted as well (48mmHg). patient was started on p.o. diltiazem yesterday and infusion has been weaned heart rate is controlled and will monitor continue aspirin not on anticoagulation due to anemia (4) Elevated troponin: Code(s): R79.89 - Other specified abnormal findings of blood chemistry Status: Acute Assessment and Plan: Troponin peaked at 0.076. Likely secondary to rapid AFib. Cardiology is following and no plan for further workup at this time. (5) COPD exacerbation: Code(s): J44.1 - Chronic obstructive pulmonary disease with (acute) exacerbation Status: Acute Assessment and Plan: Stable. Continue bronchodilators prn. (6) Alcohol abuse: Code(s): F10.10 - Alcohol abuse, uncomplicated Status: Chronic Assessment and Plan: continue thiamine folic acid hold Ativan at this time due to encephalopathy neurochecks (7) GERD (gastroesophageal reflux disease): Qualifiers: Esophagitis presence: esophagitis presence not specified Qualified Code(s): K21.9 - Gastro-esophageal reflux disease without esophagitis Code(s): K21.9 - Gastro-esophageal reflux disease without esophagitis Status: Chronic Assessment and Plan: Stable. Continue Protonix. (8) Electrolyte abnormality: Code(s): E87.8 - Other disorders of electrolyte and fluid balance, not elsewhere classified Status: Acute Assessment and Plan: potassium was replaced yesterday and is in normal range today increased sodium and chloride suggest free water loss and patient's free water flushes were increased. Both sodium and chloride are slightly better as compared to yesterday. Will continue current rate of free water flush with tube feeds (9) Acute encephalopathy: Code(s): G93.40 - Encephalopathy, unspecified Status: Acute Assessment and Plan: likely multifactorial from illness, delirium and Ativan continue to hold Ativan and other benzodiazepine ammonia level was normal patient has a head CT ordered which is pending at this time (10) Anemia: Code(s): D64.9 - Anemia, unspecified Status: Acute Assessment and Plan: no obvious bleeding but hemoglobin has dropped but is now stable continue monitor hemoglobin continue PPI IV twice a day patient at risk of stress gastri
--- NOTE | 2020-08-07 11:26 | PM.PNCARD ---
Progress Note: A&P Assessment and Plan (1) Atrial fibrillation with RVR: Code(s): I48.91 - Unspecified atrial fibrillation Status: Acute Assessment and Plan: ATrial fibrillation, appears to be of new onset, With more difficult to control heart rate recently Despite Cardizem drip at 10 milligrams/hour and p.r.n. metoprolol.. May be related to COVID infection + Etoh TSH is low but was normal in June. Echo = normal LV function w/ no significant valve disease. Appears to have an iron-deficiency anemia and is not being anticoagulated at this time. DC IV diltiazem drip (2) Elevated troponin: Code(s): R79.89 - Other specified abnormal findings of blood chemistry Status: Acute Assessment and Plan: Mildly elevated troponin w/o CP or ischemic EKG changes. Likely 2nd COVID -19 infection. (3) Pneumonia due to COVID-19 virus: Code(s): U07.1 - COVID-19; J12.89 - Other viral pneumonia Status: Acute Assessment and Plan: On high-flow O2 . (4) Alcohol abuse: Code(s): F10.10 - Alcohol abuse, uncomplicated Status: Chronic Assessment and Plan: Had some withdrawal earlier this hospitalization. H/O elevated ammonia levels but normal on this admission. Subjective Date/time seen: 08/07/20 11:26 Interval history: Date of service: 08/06 74yo male with chronic respiratory failure (4L) and COPD here for confusion and fever and found to have COVID-19. Review of Systems Review of Systems: ROS unobtainable: Yes unobtainable due to medical condition and unobtainable due to mental status Constitutional: Constitutional: Reports fatigue and Reports weakness Eyes: Eyes: Reports no additional eye complaints ENT: Denies epistaxis and Denies nasal congestion Cardiovascular: Cardiovascular: Reports no additional cardiovascular complaints, Denies chest pain, Denies pedal edema, Denies leg edema, Reports palpitations and Reports dyspnea Respiratory: Respiratory: Reports cough, Denies hemoptysis and Reports dyspnea Gastrointestinal: Gastrointestinal: Reports no additional gastrointestinal complaints and Denies abdominal pain Genitourinary: Genitourinary: Denies hematuria and Denies dysuria Musculoskeletal: Musculoskeletal: Reports no additional musculoskeletal complaints Integumentary/Breasts: Skin/Breast: Reports system reviewed and no additional complaints, except as docu, Denies rash and Denies wounds Neurologic: Reports as per HPI, Reports behavioral changes (confused and sleepy), Reports confusion and Reports weakness Psychiatric: Psychiatric: Reports no additional psychiatric complaints, Reports behavioral changes (confused and sleepy) and Reports confusion Endocrine: Endocrine: Reports no additional endocrine complaints, Reports fatigue and Reports palpitations Hematologic/Lymphatic: Hematologic/Lymphatic: Reports as per HPI Allergic/Immunologic: Allergic/Immunologic: Reports no additional allergic/immunologic complaints Exam Const: General: comfortable, no acute distress, confusion and uncomfortable ( mildly tachypneic) Orientation/consciousness: confusion Other: Elderly rather cachectic looking chronically ill appearing man in the ICU speaking with the nurse and myself does not appear to be in any significant distress. HENMT: General nose exam: no epistaxis Mouth: Yes dry mucous membranes Eyes: General: appearance normal, both eyes and all related structures Sclera: sclerae normal Neck: Neck: supple Thyroid: thyroid normal Other: About 2 cm of JVD is noted above the angle of Oswald Resp: Effort & Inspection: normal respiratory effort ( mildly tachypneic) Other: breath sounds are markedly diminished in both lung weeks Cardio: Rate: tachycardic Rhythm: abnormal rhythm (a fib) irregularly irregular Other: no murmur
[2020-08-07 11:44] LABS: Glucose Point of Care 145 (65-105)
--- NOTE | 2020-08-07 12:49 | PCDIET ---
ICU Rounding Note: Patient tolerating Jevity 1.2 at 65mL/hr goal rate. No significant residuals reported. Receiving 200mL water flush every 4 hours. Last recorded weight is 61.1kg which is increased from last review. +I/O. Bowel Motility: No recent BM documented. adding Miralax and Dulcolax. Labs Reviewed: Hgb (9.7), Hct (33.1), Glu (152), Alb (2.5), Opal Ca (8.9) Meds Noted: Decadron, Xopenex, Folic Acid, Protonix, Novolog, Zosyn, Advair, Thiamine, Vancomycin Additional Notes: Buttocks macerated. No new recommendations at this time. Following daily in ICU rounds. Assessing/reassessing every Friday/Friday.
--- NOTE | 2020-08-07 14:35 | PM.IMPN ---
Progress Note: A&P Assessment and Plan (1) Acute and chronic respiratory failure: Code(s): J96.20 - Acute and chronic respiratory failure, unspecified whether with hypoxia or hypercapnia Status: Acute Assessment and Plan: Patient requiring increasing O2 from baseline. ABG showing 7.45/37/57 on 15L HFNC. Currently at Airvo now. Did receive Lasix x2 (08/02, 08/03). Concern for aspiration now given his malnutrition with BMI 18 and obtunded state. Abx started. WBC higher again at 22K. Continue current management for COVID 19. NG tube placed and tolerating tube feedings. CXR reviewed showing no significant change. Wean O2 as tolerated back to baseline. Discussed with dtr. 08/07/20 14:35 patient is 74-year-old male with a history of polycythemia vera chronic respiratory failure secondary to COPD and alcohol abuse, patient was recently discharged from the hospital after he was treated for encephalopathy and discharged on July 18, his family brought to emergency department on July 29 with complaint of cough shortness of breath shaking, he was found to new onset atrial fibrillation he was started on diltiazem drip, he was tested COVID-19 and was positive, currently patient he is on high-flow oxygen, he is off diltiazem drip and on oral diltiazem rate is controlled, seen by Cardiology, had a cardiac echo showed ejection fraction of 55% and dialysate dysfunction and moderate pulmonary hypertension, patient continued to require high-flow oxygen he has completed course of remdesivir and being treated with dexamethasone patient is seen by race car driver we will continue to monitor. discussed with Dr. Linares today prognosis is poor. (2) Pneumonia due to COVID-19 virus: Code(s): U07.1 - COVID-19; J12.89 - Other viral pneumonia Status: Acute Assessment and Plan: Sx began on 07/28 and tested positive 07/29. Has chronic O2 requirement but worsened due to COVID-19. Dexamethasone started on 08/01/20 (Day 6). Remdesivir started on 08/01/20 and completed 5 Day course. Continue supportive care. (3) Atrial fibrillation with RVR: Code(s): I48.91 - Unspecified atrial fibrillation Status: Acute Assessment and Plan: Appears to be new onset atrial fibrillation with rapid ventricular response. Echo showing EF 55-60% with normal diastolic function. Moderate pulmonary HTN noted as well (48mmHg). 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 Converted to NSR but appears to be in/out of AFib. Patient being transitioned to Cardizem via NG tube. He has metoprolol IV as needed for tachycardia (last dose 08/03). Appreciate Cardiology input. Anticoagulation on hold. (4) Acute encephalopathy: Code(s): G93.40 - Encephalopathy, unspecified Status: Acute Assessment and Plan: Patient with altered mental status most likely related to COVID and acute hypoxia. Slightly better. No focal weakness but will need CT brain when able. (5) Elevated troponin: Code(s): R79.89 - Other specified abnormal findings of blood chemistry Status: Acute Assessment and Plan: Troponin peaked at 0.076. Likely secondary to rapid AFib. Cardiology is following. (6) Chronic respiratory failure: Qualifiers: Respiratory failure complication: unspecified whether with hypoxia or hypercapnia Qualified Code(s): J96.10 - Chronic respiratory failure, unspecified whether with hypoxia or hypercapnia Code(s): J96.10 - Chronic respiratory failure, unspecified whether with hypoxia or hypercapnia Status: Chronic Assessment and Plan: Patient with chronic hypoxe
[2020-08-07 17:29] LABS: Glucose Point of Care 189 (65-105)
[2020-08-07] MEDS: ENOXAPARIN 40 MG/0.4 ML SYRINGE SUB-Q (19:59)
[2020-08-07] MEDS: LEVALBUTEROL HFA (*SP) 15 GM INHALER 2 PUFF INHALATION (20:48)
[2020-08-07 23:44] LABS: Glucose Point of Care 128 (65-105)
--- NOTE | 2020-08-07 23:48 | PC.NURSE ---
Pt pulled out NG Dr. Linares aware. He is rate controlled he said to give IV cardizem if needed til NG is replaced.
[2020-08-08] VITALS (17 sets, daily range): BP systolic 105–138; BP diastolic 60–85; PULSE 69–109; RESP 17–22; TEMP 35.6–36.8; O2SAT 91–98
[2020-08-08] MEDS: CENTRAL LINE FLUSH 10 ML IV PUSH ×3 (05:24→22:00)
[2020-08-08 05:34] LABS: Hematocrit 30.5 % (42.0-52.0); Hemoglobin 8.8 g/dL (14.0-18.0); Mean Corpuscular HGB Conc 28.9 g/dl (32-36); Mean Corpuscular Hemoglobin 21.9 pg (26-34); Mean Corpuscular Volume 76.1 fl (80-100); Mean Platelet Volume 11.7 fl (7.4-10.4); Platelet Count Result 421 k/mm3 (150-375); Red Blood Count 4.01 M/mm3 (4.6-6.20); Red Cell Distribution Width 19.9 % (11.5-14.5); White Blood Count 25.9 K/mm3 (4.5-10.0)
[2020-08-08 05:49] LABS: Alanine Aminotransferase 35 U/L (4-50); Albumin Level 2.3 g/dL (3.5-5.1); Alkaline Phosphatase 86 U/L (38-126); Anion Gap 0 mmol/L (8-16); Aspartate Amino Transferase 33 U/L (17-59); Bilirubin,Total 0.6 mg/dL (0.2-1.3); Blood Urea Nitrogen 49 mg/dL (9-20); Calcium 7.5 mg/dL (8.4-10.2); Carbon Dioxide 33 mmol/L (22-30); Chloride 109 mmol/L (98-107); Estimated CRCL calculation 69 ml/min; Estimated Glomerular Filt Rate > 60; Glucose 99 mg/dL (75-110); Magnesium 2.8 mg/dL (1.6-2.3); Phosphorus 3.7 mg/dL (2.5-4.5); Sodium 142 mmol/L (137-145)
[2020-08-08] MEDS: FLUTICASONE/SALMETEROL 45-21 MCG INHALER 1 PUFF 2 PUFF INHALATION ×2 (08:36→21:02)
[2020-08-08] MEDS: PANTOPRAZOLE SODIUM IV 40 MG VIAL IV PUSH ×2 (09:13→20:09)
[2020-08-08] MEDS: THIAMINE HCL 200 MG/2 ML VIAL 100 MG IV PUSH (09:13)
[2020-08-08] MEDS: DEXAMETHASONE SOD PHOS INJ 4 MG/ML VIAL 6 MG IV PUSH (09:13)
--- NOTE | 2020-08-08 09:39 | WPDINTPN ---
Progress Note: A&P Assessment and Plan (1) Acute and chronic respiratory failure: Code(s): J96.20 - Acute and chronic respiratory failure, unspecified whether with hypoxia or hypercapnia Status: Acute Assessment and Plan: Patient patient on oxygen at home on baseline. admitted with COVID-19 pneumonia. - His respiratory failure is multifactorial with COVID-19 pneumonia, baseline severe COPD, congestive heart failure. - currently on AirVo, wean FiO2 to maintain O2 sats greater than 90% since he has severe COPD. Patient is able to protect his airway at this time - chest x-ray reviewed Increase in WBC could be secondary to steroids but patient started on broad-spectrum empirical antibiotics (Vancomycin and Zosyn) for possible secondary bacterial infection - PT/OT to evaluate the patient - speech therapy to evaluate for bedside swallow test (2) Pneumonia due to COVID-19 virus: Code(s): U07.1 - COVID-19; J12.89 - Other viral pneumonia Status: Acute Assessment and Plan: continue dexamethasone completed course of remdesivir. monitor inflammatory markers conservative IV fluids (3) Atrial fibrillation with RVR: Code(s): I48.91 - Unspecified atrial fibrillation Status: Acute Assessment and Plan: Appears to be new onset atrial fibrillation with rapid ventricular response. Echo showing EF 55-60% with normal diastolic function. Moderate pulmonary HTN noted as well (48mmHg). patient pulled out his NG tube overnight, so cannot give him oral diltiazem. Patient currently in A fib, rate controlled. continue aspirin not on anticoagulation due to anemia (4) Elevated troponin: Code(s): R79.89 - Other specified abnormal findings of blood chemistry Status: Acute Assessment and Plan: Troponin peaked at 0.076. Likely secondary to rapid AFib. Cardiology is following and no plan for further workup at this time. (5) COPD exacerbation: Code(s): J44.1 - Chronic obstructive pulmonary disease with (acute) exacerbation Status: Acute Assessment and Plan: Stable. Continue Advair and Xopenex inhaler (6) Alcohol abuse: Code(s): F10.10 - Alcohol abuse, uncomplicated Status: Chronic Assessment and Plan: continue thiamine folic acid hold Ativan at this time due to encephalopathy neurochecks (7) GERD (gastroesophageal reflux disease): Qualifiers: Esophagitis presence: esophagitis presence not specified Qualified Code(s): K21.9 - Gastro-esophageal reflux disease without esophagitis Code(s): K21.9 - Gastro-esophageal reflux disease without esophagitis Status: Chronic Assessment and Plan: Stable. Continue Protonix. (8) Electrolyte abnormality: Code(s): E87.8 - Other disorders of electrolyte and fluid balance, not elsewhere classified Status: Acute Assessment and Plan: potassium was replaced yesterday and is in normal range today sodium within normal limits (9) Acute encephalopathy: Code(s): G93.40 - Encephalopathy, unspecified Status: Acute Assessment and Plan: IMPROVING: patient more awake, alert, oriented x3 - encephalopathy is likely multifactorial from illness, delirium and Ativan - continue to hold Ativan and other benzodiazepine - ammonia level was normal - CT brain on 08/07/2020 did not show any acute intracranial abnormalities. Mild nonspecific cerebral white matter disease which likely represents chronic small vessel ischemic disease. (10) Anemia: Code(s): D64.9 - Anemia, unspecified Status: Acute Assessment and Plan: no obvious bleeding but hemoglobin has dropped but is now stable continue monitor hemoglobin continue PPI IV twice a day patient at risk of stress gastritis due to being on steroids, aspirin and DVT prophylaxis Lovenox (11) DVT prophylaxis: Code(s)
--- NOTE | 2020-08-08 09:48 | PM.PNCARD ---
Progress Note: A&P Assessment and Plan (1) Atrial fibrillation with RVR: Code(s): I48.91 - Unspecified atrial fibrillation Status: Acute Assessment and Plan: ATrial fibrillation, appears to be of new onset, With more difficult to control heart rate recently Despite Cardizem drip at 10 milligrams/hour and p.r.n. metoprolol.. May be related to COVID infection + Etoh TSH is low but was normal in June. Echo = normal LV function w/ no significant valve disease. Appears to have an iron-deficiency anemia and is not being anticoagulated at this time. continue current regimen. Remains in sinus rhythm with frequent PACs (2) Elevated troponin: Code(s): R79.89 - Other specified abnormal findings of blood chemistry Status: Acute Assessment and Plan: Mildly elevated troponin w/o CP or ischemic EKG changes. Likely 2nd COVID -19 infection. (3) Pneumonia due to COVID-19 virus: Code(s): U07.1 - COVID-19; J12.89 - Other viral pneumonia Status: Acute Assessment and Plan: On high-flow O2 . (4) Alcohol abuse: Code(s): F10.10 - Alcohol abuse, uncomplicated Status: Chronic Assessment and Plan: Had some withdrawal earlier this hospitalization. H/O elevated ammonia levels but normal on this admission. Subjective Date/time seen: 08/08/20 09:48 Interval history: Date of service: 08/08/20 74yo male with chronic respiratory failure (4L) and COPD here for confusion and fever and found to have COVID-19. Pulled out his NG. Still in sinus rhythm with frequent PAC Review of Systems Review of Systems: ROS unobtainable: Yes unobtainable due to medical condition and unobtainable due to mental status Constitutional: Constitutional: Reports fatigue and Reports weakness Eyes: Eyes: Reports no additional eye complaints ENT: Denies epistaxis and Denies nasal congestion Cardiovascular: Cardiovascular: Reports no additional cardiovascular complaints, Denies chest pain, Denies pedal edema, Denies leg edema, Reports palpitations and Reports dyspnea Respiratory: Respiratory: Reports cough, Denies hemoptysis and Reports dyspnea Gastrointestinal: Gastrointestinal: Reports no additional gastrointestinal complaints and Denies abdominal pain Genitourinary: Genitourinary: Denies hematuria and Denies dysuria Musculoskeletal: Musculoskeletal: Reports no additional musculoskeletal complaints Integumentary/Breasts: Skin/Breast: Reports system reviewed and no additional complaints, except as docu, Denies rash and Denies wounds Neurologic: Reports as per HPI, Reports behavioral changes (confused and sleepy), Reports confusion and Reports weakness Psychiatric: Psychiatric: Reports no additional psychiatric complaints, Reports behavioral changes (confused and sleepy) and Reports confusion Endocrine: Endocrine: Reports no additional endocrine complaints, Reports fatigue and Reports palpitations Hematologic/Lymphatic: Hematologic/Lymphatic: Reports as per HPI Allergic/Immunologic: Allergic/Immunologic: Reports no additional allergic/immunologic complaints Exam Const: General: uncomfortable ( mildly tachypneic) Orientation/consciousness: confusion Other: Elderly rather cachectic looking chronically ill appearing man in the ICU speaking with the nurse and myself does not appear to be in any significant distress. HENMT: General nose exam: no epistaxis Eyes: Sclera: sclerae normal Neck: Other: Resp: Effort & Inspection: normal respiratory effort ( mildly tachypneic) Cardio: Rate: regular rate Skin: General skin exam: normal color Extrem: Other: no peripheral edema Objective Data Vital Signs Vital Signs: Vital Signs - 24 hr 08/07/20 10:00 08/07/20 10:31 08/07/20 12:00 Temperature 36.8 C Pulse Rate 80 75 94 Pulse Rate [Bilat
[2020-08-08 09:53] LABS: Glucose Point of Care 105 (65-105)
--- NOTE | 2020-08-08 11:03 | PCDIET ---
Nutrition Follow-Up Complete: Nutrition Diagnosis: Suboptimal oral intake related to decreased appetite as evidenced by average intake of 20% of meals with poor intake reported on admission. Nutrition Goal: Patient to meet estimated nutritional needs. Goal not met. Patient pulled out NG tube and unable to replace x multiple attempts. Plan for [employer]ER[employer] evaluation today to see if patient can start oral diet. Recommend no restrictions other than SHE[employer]ER[employer] recommendations if diet able to advance. Last recorded weight is 62.9 kg which is increased from last review. +I/O. Bowel Motility: No recent documented BM. Patient on Miralax and Dulcolax prn. Labs Reviewed: Hgb (8.8), Hct (30.5), BUN (49), Alb (2.3), Opal Ca (8.86) Meds Noted: Miralax, Protonix, Zosyn, Advair, Thiamine, Vancomycin, Decadron, Folic Acid, Novolog, Xopenex Additional Notes: Bilateral buttocks macerated. Wound on penis reported today; wound nurse consulted. Will continue to monitor with same goal. Nutrition Monitoring and Evaluation: Follow up in 3 days.
[2020-08-08] MEDS: dilTIAZem HCL 60 MG TABLET PO ×3 (12:43→23:27)
[2020-08-08] MEDS: ACETAMINOPHEN ELIXIR 325 MG/10.15 ML UDC 650 MG FEED TUBE (12:44)
[2020-08-08 13:09] LABS: Glucose Point of Care 115 (65-105)
[2020-08-08] MEDS: LEVALBUTEROL HFA (*SP) 15 GM INHALER 2 PUFF INHALATION ×2 (14:14→21:03)
--- NOTE | 2020-08-08 16:01 | PM.IMPN ---
Progress Note: A&P Assessment and Plan (1) Acute and chronic respiratory failure: Code(s): J96.20 - Acute and chronic respiratory failure, unspecified whether with hypoxia or hypercapnia Status: Acute Assessment and Plan: Patient requiring increasing O2 from baseline. ABG showing 7.45/37/57 on 15L HFNC. Currently at [facility] now. Did receive Lasix x2 (08/02, 08/03). Concern for aspiration now given his malnutrition with BMI 18 and obtunded state. Abx started. WBC higher again at 22K. Continue current management for COVID 19. NG tube placed and tolerating tube feedings. CXR reviewed showing no significant change. Wean O2 as tolerated back to baseline. Discussed with dtr. 08/08/20 16:01 patient is 74-year-old male with a history of polycythemia vera chronic respiratory failure secondary to COPD and alcohol abuse, patient was recently discharged from the hospital after he was treated for encephalopathy and discharged on July 18, his family brought to emergency department on July 29 with complaint of cough shortness of breath shaking, he was found to new onset atrial fibrillation he was started on diltiazem drip, he was tested COVID-19 and was positive, currently patient he is on high-flow oxygen, he is off diltiazem drip and on oral diltiazem rate is controlled, seen by Cardiology, had a cardiac echo showed ejection fraction of 55% and dialysate dysfunction and moderate pulmonary hypertension, patient continued to require high-flow oxygen he has completed course of remdesivir and being treated with dexamethasone patient is seen by servicenow administrator we will continue to monitor. today 08/[address] Matos patient is more alert and wake today, he pulled out his NG tube, does not want it back, patient will have swallow evaluation and further recommendation to follow, patient is seen by cardioloigist and rate in controlled, (2) Pneumonia due to COVID-19 virus: Code(s): U07.1 - COVID-19; J12.89 - Other viral pneumonia Status: Acute Assessment and Plan: Sx began on 07/28 and tested positive 07/29. Has chronic O2 requirement but worsened due to COVID-19. Dexamethasone started on 08/01/20 (Day 6). Remdesivir started on 08/01/20 and completed 5 Day course. Continue supportive care. (3) Atrial fibrillation with RVR: Code(s): I48.91 - Unspecified atrial fibrillation Status: Acute Assessment and Plan: Appears to be new onset atrial fibrillation with rapid ventricular response. Echo showing EF 55-60% with normal diastolic function. Moderate pulmonary HTN noted as well (48mmHg). 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 Converted to NSR but appears to be in/out of AFib. Patient being transitioned to Cardizem via NG tube. He has metoprolol IV as needed for tachycardia (last dose 08/03). Appreciate Cardiology input. Anticoagulation on hold. (4) Acute encephalopathy: Code(s): G93.40 - Encephalopathy, unspecified Status: Acute Assessment and Plan: Patient with altered mental status most likely related to COVID and acute hypoxia. Slightly better. No focal weakness but will need CT brain when able. (5) Elevated troponin: Code(s): R79.89 - Other specified abnormal findings of blood chemistry Status: Acute Assessment and Plan: Troponin peaked at 0.076. Likely secondary to rapid AFib. Cardiology is following. (6) Chronic respiratory failure: Qualifiers: Respiratory failure complication: unspecified whether with hypoxia or hypercapnia Qualified Code(s): J96.10 - Chronic respiratory failure, unspecified whet
[2020-08-08 17:27] LABS: Glucose Point of Care 146 (65-105)
[2020-08-08] MEDS: ENOXAPARIN 40 MG/0.4 ML SYRINGE SUB-Q (20:09)
[2020-08-08 23:52] LABS: Glucose Point of Care 138 (65-105)
[2020-08-09] VITALS (16 sets, daily range): BP systolic 100–167; BP diastolic 57–86; PULSE 68–92; RESP 17–34; TEMP 35.9–36.7; O2SAT 92–97
[2020-08-09] MEDS: LEVALBUTEROL HFA (*SP) 15 GM INHALER 2 PUFF INHALATION ×5 (01:16→20:12)
[2020-08-09] MEDS: CENTRAL LINE FLUSH 10 ML IV PUSH ×4 (05:54→21:02)
[2020-08-09] MEDS: dilTIAZem HCL 60 MG TABLET PO ×3 (05:59→18:02)
[2020-08-09 06:12] LABS: Hematocrit 29.5 % (42.0-52.0); Hemoglobin 8.6 g/dL (14.0-18.0); Immature Platelet Fraction Pct 6.9 % (0.9-11.2); Mean Corpuscular HGB Conc 29.2 g/dl (32-36); Mean Corpuscular Hemoglobin 21.9 pg (26-34); Mean Corpuscular Volume 75.3 fl (80-100); Mean Platelet Volume 11.6 fl (7.4-10.4); Platelet Count Result 379 k/mm3 (150-375); Red Blood Count 3.92 M/mm3 (4.6-6.20); Red Cell Distribution Width 20.2 % (11.5-14.5); White Blood Count 24.7 K/mm3 (4.5-10.0)
[2020-08-09 06:21] LABS: D Dimer 1.61 ug/mL (<0.48)
[2020-08-09 06:26] LABS: Alanine Aminotransferase 34 U/L (4-50); Albumin Level 2.4 g/dL (3.5-5.1); Alkaline Phosphatase 72 U/L (38-126); Anion Gap -1 mmol/L (8-16); Aspartate Amino Transferase 29 U/L (17-59); Bilirubin,Total 0.6 mg/dL (0.2-1.3); Blood Urea Nitrogen 46 mg/dL (9-20); CRP 1.4 mg/dL (<1.0); Calcium 7.8 mg/dL (8.4-10.2); Carbon Dioxide 32 mmol/L (22-30); Chloride 105 mmol/L (98-107); Estimated CRCL calculation 61 ml/min; Estimated Glomerular Filt Rate > 60; Glucose 95 mg/dL (75-110); Lactate Dehydrogenase 596 U/L (313-618); Magnesium 2.5 mg/dL (1.6-2.3); Potassium 4.8 mmol/L (3.4-5.0); Sodium 136 mmol/L (137-145)
--- NOTE | 2020-08-09 07:20 | P.CDI_ITS ---
CDI Query Clarification Request - Acute encephalopathy has been documented. Please further specify type of encephalopathy: * Metabolic * Toxic * Hypertensive * Hepatic * Anoxic * Other * Unable to determine <Karina Morelos RN - Last Filed: 08/09/20 07:21>
--- NOTE | 2020-08-09 07:20 | WPDCDIQUERY2 ---
CDI Query Clarification Request - Acute encephalopathy has been documented. Please further specify type of encephalopathy: Metabolic Toxic Hypertensive Hepatic Anoxic Other Unable to determine <Karina Morelos RN - Last Filed: 08/09/20 07:21>
[2020-08-09] MEDS: FLUTICASONE/SALMETEROL 45-21 MCG INHALER 1 PUFF 2 PUFF INHALATION ×2 (07:56→20:13)
--- NOTE | 2020-08-09 08:03 | WPDINTPN ---
Progress Note: A&P Assessment and Plan (1) Acute and chronic respiratory failure: Code(s): J96.20 - Acute and chronic respiratory failure, unspecified whether with hypoxia or hypercapnia Status: Acute Assessment and Plan: Patient with history of COPD on home oxygen. admitted with COVID-19 pneumonia. - His respiratory failure is multifactorial with COVID-19 pneumonia, baseline severe COPD, congestive heart failure. - currently on AirVo, wean FiO2 to maintain O2 sats greater than 90% since he has severe COPD. Patient is able to protect his airway at this time - chest x-ray reviewed Increase in WBC could be secondary to steroids but patient started on broad-spectrum empirical antibiotics (Vancomycin and Zosyn) for possible secondary bacterial infection - patient working with PT/OT - up in chair (2) Pneumonia due to COVID-19 virus: Code(s): U07.1 - COVID-19; J12.89 - Other viral pneumonia Status: Acute Assessment and Plan: continue dexamethasone completed course of remdesivir. Inflammatory markers trending down conservative IV fluids (3) Atrial fibrillation with RVR: Code(s): I48.91 - Unspecified atrial fibrillation Status: Acute Assessment and Plan: Appears to be new onset atrial fibrillation with rapid ventricular response. Echo showing EF 55-60% with normal diastolic function. Moderate pulmonary HTN noted as well (48mmHg). continue p.o. diltiazem. Patient currently in A fib, rate controlled. continue aspirin not on anticoagulation due to anemia (4) Elevated troponin: Code(s): R79.89 - Other specified abnormal findings of blood chemistry Status: Acute Assessment and Plan: Troponin peaked at 0.076. Likely secondary to rapid AFib. Cardiology is following and no plan for further workup at this time. (5) COPD exacerbation: Code(s): J44.1 - Chronic obstructive pulmonary disease with (acute) exacerbation Status: Acute Assessment and Plan: Stable. Continue Advair and Xopenex inhaler will increase frequency to q.4 hours (6) Alcohol abuse: Code(s): F10.10 - Alcohol abuse, uncomplicated Status: Chronic Assessment and Plan: continue thiamine, folic acid hold Ativan at this time due to encephalopathy neurochecks (7) GERD (gastroesophageal reflux disease): Qualifiers: Esophagitis presence: esophagitis presence not specified Qualified Code(s): K21.9 - Gastro-esophageal reflux disease without esophagitis Code(s): K21.9 - Gastro-esophageal reflux disease without esophagitis Status: Chronic Assessment and Plan: Stable. Continue Protonix. (8) Electrolyte abnormality: Code(s): E87.8 - Other disorders of electrolyte and fluid balance, not elsewhere classified Status: Acute Assessment and Plan: potassium was replaced yesterday and is in normal range today sodium within normal limits (9) Acute encephalopathy: Code(s): G93.40 - Encephalopathy, unspecified Status: Acute Assessment and Plan: IMPROVING: patient more awake, alert, oriented x3 - encephalopathy is likely multifactorial from illness, delirium and Ativan - continue to hold Ativan and other benzodiazepine - ammonia level was normal - CT brain on 08/07/2020 did not show any acute intracranial abnormalities. Mild nonspecific cerebral white matter disease which likely represents chronic small vessel ischemic disease. (10) Anemia: Qualifiers: Anemia type: unspecified type Qualified Code(s): D64.9 - Anemia, unspecified Code(s): D64.9 - Anemia, unspecified Status: Acute Assessment and Plan: no obvious bleeding but hemoglobin has dropped but is now stable continue monitor hemoglobin continue PPI IV twice a day patient at risk of stress gastritis due to being on steroids, aspirin and DVT pr
[2020-08-09] MEDS: ASPIRIN 81 MG CHEWABLE TABLET FEED TUBE (08:46)
[2020-08-09] MEDS: DEXAMETHASONE SOD PHOS INJ 4 MG/ML VIAL 6 MG IV PUSH (08:46)
[2020-08-09] MEDS: FOLIC ACID 1 MG TABLET FEED TUBE (08:47)
[2020-08-09] MEDS: polyethylene glycoL 3350 17 GM POWD.PACK PO (08:48)
[2020-08-09] MEDS: THIAMINE HCL 200 MG/2 ML VIAL 100 MG IV PUSH (08:48)
[2020-08-09] MEDS: PANTOPRAZOLE SODIUM IV 40 MG VIAL IV PUSH ×2 (08:48→20:00)
--- NOTE | 2020-08-09 10:59 | PCDIET ---
ICU Rounding Note: Diet advanced to minced and moist with mildly thick liquids, per HOME ADVISOR recommendation. Intake has been limited; therefore, agree with thickened Ensure Compact (220kcal, 9g protein) BID. Last recorded weight is 63.2kg which is stable. Bowel Motility: No BM per nursing - Miralax given today. Dulcolax ordered prn. Labs Reviewed: Hgb (8.6), Hct (29.5), BUN (46), Na (136), Alb (2.4), Opal Ca (9.08) Meds Noted: Decadron, Folic Acid, Novolog, Thiamine, Xopenex, Protonix, Zosyn, Advair, Vancomycin Additional Notes: Reported ulceration on penis. Buttocks macerated. Following daily in ICU rounds. Assessing/reassessing every 3 days.
[2020-08-09] MEDS: ACETAMINOPHEN ELIXIR 325 MG/10.15 ML UDC 650 MG FEED TUBE ×2 (11:09→16:33)
--- NOTE | 2020-08-09 11:52 | PM.PNCARD ---
Progress Note: A&P Assessment and Plan (1) Atrial fibrillation with RVR: Code(s): I48.91 - Unspecified atrial fibrillation Status: Acute Assessment and Plan: ATrial fibrillation, appears to be of new onset, With more difficult to control heart rate recently Despite Cardizem drip at 10 milligrams/hour and p.r.n. metoprolol.. May be related to COVID infection + Etoh TSH is low but was normal in June. Echo = normal LV function w/ no significant valve disease. Appears to have an iron-deficiency anemia and is not being anticoagulated at this time. continue current regimen. Remains in sinus rhythm with frequent PACs (2) Elevated troponin: Code(s): R79.89 - Other specified abnormal findings of blood chemistry Status: Acute Assessment and Plan: Mildly elevated troponin w/o CP or ischemic EKG changes. Likely 2nd COVID -19 infection. (3) Pneumonia due to COVID-19 virus: Code(s): U07.1 - COVID-19; J12.89 - Other viral pneumonia Status: Acute Assessment and Plan: On high-flow O2 . (4) Alcohol abuse: Code(s): F10.10 - Alcohol abuse, uncomplicated Status: Chronic Assessment and Plan: Had some withdrawal earlier this hospitalization. H/O elevated ammonia levels but normal on this admission. Subjective Date/time seen: 08/09/20 11:52 Interval history: Date of service: 08/09/20 74yo male with chronic respiratory failure (4L) and COPD here for confusion and fever and found to have COVID-19. rhythm remained stable. Appears more awake alert Review of Systems Review of Systems: ROS unobtainable: Yes unobtainable due to medical condition and unobtainable due to mental status Constitutional: Constitutional: Reports fatigue and Reports weakness Eyes: Eyes: Reports no additional eye complaints ENT: Denies epistaxis and Denies nasal congestion Cardiovascular: Cardiovascular: Reports no additional cardiovascular complaints, Denies chest pain, Denies pedal edema, Denies leg edema, Reports palpitations and Reports dyspnea Respiratory: Respiratory: Reports cough, Denies hemoptysis and Reports dyspnea Gastrointestinal: Gastrointestinal: Reports no additional gastrointestinal complaints and Denies abdominal pain Genitourinary: Genitourinary: Denies hematuria and Denies dysuria Musculoskeletal: Musculoskeletal: Reports no additional musculoskeletal complaints Integumentary/Breasts: Skin/Breast: Reports system reviewed and no additional complaints, except as docu, Denies rash and Denies wounds Neurologic: Reports as per HPI, Reports behavioral changes (confused and sleepy), Reports confusion and Reports weakness Psychiatric: Psychiatric: Reports no additional psychiatric complaints, Reports behavioral changes (confused and sleepy) and Reports confusion Endocrine: Endocrine: Reports no additional endocrine complaints, Reports fatigue and Reports palpitations Hematologic/Lymphatic: Hematologic/Lymphatic: Reports as per HPI Allergic/Immunologic: Allergic/Immunologic: Reports no additional allergic/immunologic complaints Exam Const: Other: Elderly rather cachectic looking chronically ill appearing man in the ICU does not appear to be in any significant distress. HENMT: General nose exam: no epistaxis Eyes: Sclera: sclerae normal Neck: Other: Resp: Effort & Inspection: normal respiratory effort ( mildly tachypneic) Cardio: Rate: regular rate Skin: General skin exam: normal color Lesions: lesion noted ( some ecchymosis over the forearms) Neuro: Cognition (Neuro): normal cognition Extrem: General: no edema Other: no peripheral edema Objective Data Vital Signs Vital Signs: Vital Signs - 24 hr 08/08/20 12:00 08/08/20 14:00 08/08/20 16:00 Temperature 35.6 C L 36.1 C L Pulse Rate 69 109 H 82 Pulse Ra
[2020-08-09 14:31] LABS: Glucose Point of Care 137 (65-105)
--- NOTE | 2020-08-09 15:10 | PCPTNOTE ---
Addendum entered by Tata Colby, LAMP DEVELOPER 08/09/20 15:42: Attempted therapy session, Pt was with OT. Will continue with POC. Original Note: Attempted therapy session, Pt was with OT and there was only 1 helmet for the negative pressure room, PPE. Will continue with POC.
--- NOTE | 2020-08-09 16:27 | PM.IMPN ---
Progress Note: A&P Assessment and Plan (1) Acute and chronic respiratory failure: Code(s): J96.20 - Acute and chronic respiratory failure, unspecified whether with hypoxia or hypercapnia Status: Acute Assessment and Plan: Patient requiring increasing O2 from baseline. ABG showing 7.45/37/57 on 15L HFNC. Currently at [facility] now. Did receive Lasix x2 (08/02, 08/03). Concern for aspiration now given his malnutrition with BMI 18 and obtunded state. Abx started. WBC higher again at 22K. Continue current management for COVID 19. NG tube placed and tolerating tube feedings. CXR reviewed showing no significant change. Wean O2 as tolerated back to baseline. Discussed with dtr. 08/09/20 16:27 patient is 74-year-old male with a history of polycythemia vera chronic respiratory failure secondary to COPD and alcohol abuse, patient was recently discharged from the hospital after he was treated for encephalopathy and discharged on July 18, his family brought to emergency department on July 29 with complaint of cough shortness of breath shaking, he was found to new onset atrial fibrillation he was started on diltiazem drip, he was tested COVID-19 and was positive, currently patient he is on high-flow oxygen, he is off diltiazem drip and on oral diltiazem rate is controlled, seen by Cardiology, had a cardiac echo showed ejection fraction of 55% and dialysate dysfunction and moderate pulmonary hypertension, patient continued to require high-flow oxygen he has completed course of remdesivir and being treated with dexamethasone patient is seen by bronc breaker we will continue to monitor. today 08/[address] Matos patient is more alert and wake today, on 08/08 he had pulled out his NG tube and had swallow study he passed and now on he is on nector thick diet, he is clinically improving, he\is oxygen requirement is improving, plan is to have PT/OT evaluate the patient and further recommendation to follow, patient is seen by cardioloigist for A, Fib, his rate is controlled, (2) Pneumonia due to COVID-19 virus: Code(s): U07.1 - COVID-19; J12.89 - Other viral pneumonia Status: Acute Assessment and Plan: Sx began on 07/28 and tested positive 07/29. Has chronic O2 requirement but worsened due to COVID-19. Dexamethasone started on 08/01/20 (Day 6). Remdesivir started on 08/01/20 and completed 5 Day course. Continue supportive care. (3) Atrial fibrillation with RVR: Code(s): I48.91 - Unspecified atrial fibrillation Status: Acute Assessment and Plan: Appears to be new onset atrial fibrillation with rapid ventricular response. Echo showing EF 55-60% with normal diastolic function. Moderate pulmonary HTN noted as well (48mmHg). 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 Converted to NSR but appears to be in/out of AFib. Patient being transitioned to Cardizem via NG tube. He has metoprolol IV as needed for tachycardia (last dose 08/03). Appreciate Cardiology input. Anticoagulation on hold. (4) Acute encephalopathy: Code(s): G93.40 - Encephalopathy, unspecified Status: Acute Assessment and Plan: Patient with altered mental status most likely related to COVID and acute hypoxia. Slightly better. No focal weakness but will need CT brain when able. (5) Elevated troponin: Code(s): R79.89 - Other specified abnormal findings of blood chemistry Status: Acute Assessment and Plan: Troponin peaked at 0.076. Likely secondary to rapid AFib. Cardiology is following.
[2020-08-09] MEDS: ENOXAPARIN 40 MG/0.4 ML SYRINGE SUB-Q (20:00)
[2020-08-10] VITALS (17 sets, daily range): BP systolic 102–135; BP diastolic 57–79; PULSE 59–88; RESP 14–27; TEMP 35.9–37; O2SAT 9–97
[2020-08-10] MEDS: dilTIAZem HCL 60 MG TABLET PO ×4 (00:29→17:37)
[2020-08-10] MEDS: ACETAMINOPHEN ELIXIR 325 MG/10.15 ML UDC 650 MG FEED TUBE ×3 (00:34→21:26)
[2020-08-10] MEDS: LEVALBUTEROL HFA (*SP) 15 GM INHALER 2 PUFF INHALATION ×6 (00:44→20:52)
[2020-08-10 01:00] LABS: Glucose Point of Care 175 (65-105)
[2020-08-10 01:00] LABS: Glucose Point of Care 98 (65-105)
[2020-08-10] MEDS: CENTRAL LINE FLUSH 10 ML IV PUSH ×2 (05:35→21:29)
[2020-08-10 06:15] LABS: Hematocrit 25.1 % (42.0-52.0); Hemoglobin 7.4 g/dL (14.0-18.0); Mean Corpuscular HGB Conc 29.5 g/dl (32-36); Mean Corpuscular Hemoglobin 22.1 pg (26-34); Mean Corpuscular Volume 74.9 fl (80-100); Mean Platelet Volume 11.6 fl (7.4-10.4); Platelet Count Result 329 k/mm3 (150-375); Red Blood Count 3.35 M/mm3 (4.6-6.20); Red Cell Distribution Width 20.6 % (11.5-14.5); White Blood Count 21.3 K/mm3 (4.5-10.0)
[2020-08-10 06:28] LABS: Alanine Aminotransferase 37 U/L (4-50); Albumin Level 2.3 g/dL (3.5-5.1); Alkaline Phosphatase 66 U/L (38-126); Anion Gap 3 mmol/L (8-16); Aspartate Amino Transferase 33 U/L (17-59); Bilirubin,Total 0.6 mg/dL (0.2-1.3); Blood Urea Nitrogen 37 mg/dL (9-20); Calcium 7.4 mg/dL (8.4-10.2); Carbon Dioxide 29 mmol/L (22-30); Chloride 103 mmol/L (98-107); Estimated CRCL calculation 63 ml/min; Estimated Glomerular Filt Rate > 60; Glucose 138 mg/dL (75-110); Magnesium 2.3 mg/dL (1.6-2.3); Phosphorus 3.6 mg/dL (2.5-4.5); Potassium 4.2 mmol/L (3.4-5.0); Sodium 135 mmol/L (137-145)
[2020-08-10] MEDS: DEXAMETHASONE SOD PHOS INJ 4 MG/ML VIAL 6 MG IV PUSH (08:22)
[2020-08-10] MEDS: ASPIRIN 81 MG CHEWABLE TABLET FEED TUBE (08:22)
[2020-08-10] MEDS: FOLIC ACID 1 MG TABLET FEED TUBE (08:22)
[2020-08-10] MEDS: PANTOPRAZOLE SODIUM IV 40 MG VIAL IV PUSH ×2 (08:22→21:27)
[2020-08-10] MEDS: polyethylene glycoL 3350 17 GM POWD.PACK PO (08:23)
[2020-08-10] MEDS: THIAMINE HCL 200 MG/2 ML VIAL 100 MG IV PUSH (08:23)
[2020-08-10] MEDS: FLUTICASONE/SALMETEROL 45-21 MCG INHALER 1 PUFF 2 PUFF INHALATION ×2 (09:06→20:52)
--- NOTE | 2020-08-10 10:24 | PM.PNCARD ---
Progress Note: A&P Assessment and Plan (1) Atrial fibrillation with RVR: Code(s): I48.91 - Unspecified atrial fibrillation Status: Acute Assessment and Plan: ATrial fibrillation, appears to be of new onset, With more difficult to control heart rate recently Despite Cardizem drip at 10 milligrams/hour and p.r.n. metoprolol.. May be related to COVID infection + Etoh TSH is low but was normal in June. Echo = normal LV function w/ no significant valve disease. Appears to have an iron-deficiency anemia and is not being anticoagulated at this time. continue current regimen. Remains in sinus rhythm with frequent PACs He is several Liters positive over his course of admission. He seems to be doing better but sodium level is slowly declining. Probably is a mild degree of volume overload. Will give him a dose of furosemide 20 mg IV times (2) Elevated troponin: Code(s): R79.89 - Other specified abnormal findings of blood chemistry Status: Acute Assessment and Plan: Mildly elevated troponin w/o CP or ischemic EKG changes. Likely 2nd COVID -19 infection. (3) Pneumonia due to COVID-19 virus: Code(s): U07.1 - COVID-19; J12.89 - Other viral pneumonia Status: Acute Assessment and Plan: On high-flow O2 . (4) Alcohol abuse: Code(s): F10.10 - Alcohol abuse, uncomplicated Status: Chronic Assessment and Plan: Had some withdrawal earlier this hospitalization. H/O elevated ammonia levels but normal on this admission. Subjective Date/time seen: 08/10/20 10:24 Interval history: Date of service: 08/10/20 74yo male with chronic respiratory failure (4L) and COPD here for confusion and fever and found to have COVID-19. rhythm remain stable. Awake alert Review of Systems Review of Systems: ROS unobtainable: Yes unobtainable due to medical condition and unobtainable due to mental status Constitutional: Constitutional: Reports fatigue and Reports weakness Eyes: Eyes: Reports no additional eye complaints ENT: Denies epistaxis and Denies nasal congestion Cardiovascular: Cardiovascular: Reports no additional cardiovascular complaints, Denies chest pain, Denies pedal edema, Denies leg edema, Reports palpitations and Reports dyspnea Respiratory: Respiratory: Reports cough, Denies hemoptysis and Reports dyspnea Gastrointestinal: Gastrointestinal: Reports no additional gastrointestinal complaints and Denies abdominal pain Genitourinary: Genitourinary: Denies hematuria and Denies dysuria Musculoskeletal: Musculoskeletal: Reports no additional musculoskeletal complaints Integumentary/Breasts: Skin/Breast: Reports system reviewed and no additional complaints, except as docu, Denies rash and Denies wounds Neurologic: Reports as per HPI, Reports behavioral changes (confused and sleepy), Reports confusion and Reports weakness Psychiatric: Psychiatric: Reports no additional psychiatric complaints, Reports behavioral changes (confused and sleepy) and Reports confusion Endocrine: Endocrine: Reports no additional endocrine complaints, Reports fatigue and Reports palpitations Hematologic/Lymphatic: Hematologic/Lymphatic: Reports as per HPI Allergic/Immunologic: Allergic/Immunologic: Reports no additional allergic/immunologic complaints Exam Const: Other: Elderly rather cachectic looking chronically ill appearing man in the ICU does not appear to be in any significant distress. HENMT: General nose exam: no epistaxis Eyes: Sclera: sclerae normal Neck: Other: Resp: Effort & Inspection: normal respiratory effort ( mildly tachypneic) Cardio: Rate: regular rate GI: Inspection: non-distended Urinary Catheter: Urinary Catheter: patent and draining Skin: General skin exam: normal color Neuro: Cognition (Neuro): normal cogniti
[2020-08-10] MEDS: BISACODYL 5 MG TABLET EC PO (10:49)
[2020-08-10] MEDS: FUROSEMIDE INJ 40 MG/4 ML VIAL 20 MG IV PUSH (10:49)
--- NOTE | 2020-08-10 11:20 | PCDIET ---
ICU Rounding Note: Patient eating small amounts of food on minced and moist diet with level 2 liquids. Receiving Ensure Compact BID. Recommend increasing to 3x daily. Last recorded weight is 64.9kg which is increased from last review. Bowel Motility: No documented BM. MD adding Dulcolax today. Labs Reviewed: Hgb (7.4), Hct (25.1), Glu (138), BUN (37), Na (135), Alb (2.3), Opal Ca (8.76) Meds Noted: Folic Acid, Novolog, Xopenex, Thiamine, Vancomycin, Protonix, Zosyn, Miralax, Advair Additional Notes: Penis ulceration and buttock maceration documented. Following daily in ICU rounds. Assessing/reassessing every 3 days.
[2020-08-10 11:29] LABS: Vancomycin Trough 10.4 ug/mL (10.0-20.0)
[2020-08-10 13:11] LABS: Glucose Point of Care 128 (65-105)
--- NOTE | 2020-08-10 14:21 | P.PNINT_ITS ---
Progress Note: A&P Assessment and Plan (1) Acute and chronic respiratory failure: Code(s): J96.20 - Acute and chronic respiratory failure, unspecified whether with hypoxia or hypercapnia Status: Acute Assessment and Plan: Patient with history of COPD on home oxygen. admitted with COVID-19 pneumonia. - His respiratory failure is multifactorial with COVID-19 pneumonia, baseline severe COPD, congestive heart failure. - currently on AirVo, wean FiO2 to maintain O2 sats greater than 90% since he has severe COPD. Patient is able to protect his airway at this time - chest x-ray reviewed - WBC count trending down could be likely secondary to steroids, occult infection. he was started on vancomycin and Zosyn on 08/04/2020, will DC in a.m. - patient working with PT/OT - up in chair (2) Pneumonia due to COVID-19 virus: Code(s): U07.1 - COVID-19; J12.89 - Other viral pneumonia Status: Acute Assessment and Plan: continue dexamethasone completed course of remdesivir. Inflammatory markers trending down conservative IV fluids (3) Atrial fibrillation with RVR: Code(s): I48.91 - Unspecified atrial fibrillation Status: Acute Assessment and Plan: Appears to be new onset atrial fibrillation with rapid ventricular response. Echo showing EF 55-60% with normal diastolic function. Moderate pulmonary HTN noted as well (48mmHg). continue p.o. diltiazem. Patient currently in A fib, rate controlled. continue aspirin not on anticoagulation due to anemia (4) Elevated troponin: Code(s): R79.89 - Other specified abnormal findings of blood chemistry Status: Acute Assessment and Plan: Troponin peaked at 0.076. Likely secondary to rapid AFib. Cardiology is following and no plan for further workup at this time. (5) COPD exacerbation: Code(s): J44.1 - Chronic obstructive pulmonary disease with (acute) exacerbation Status: Acute Assessment and Plan: Stable. Continue Advair and Xopenex inhaler will increase frequency to q.4 hours (6) Alcohol abuse: Code(s): F10.10 - Alcohol abuse, uncomplicated Status: Chronic Assessment and Plan: continue thiamine, folic acid hold Ativan at this time due to encephalopathy neurochecks (7) GERD (gastroesophageal reflux disease): Qualifiers: Esophagitis presence: esophagitis presence not specified Qualified Code(s): K21.9 - Gastro-esophageal reflux disease without esophagitis Code(s): K21.9 - Gastro-esophageal reflux disease without esophagitis Status: Chronic Assessment and Plan: Stable. Continue Protonix. (8) Electrolyte abnormality: Code(s): E87.8 - Other disorders of electrolyte and fluid balance, not elsewhere classified Status: Acute Assessment and Plan: potassium was replaced yesterday and is in normal range today sodium within normal limits (9) Acute encephalopathy: Code(s): G93.40 - Encephalopathy, unspecified Status: Acute Assessment and Plan: IMPROVING: patient more awake, alert, oriented x3 - encephalopathy is likely multifactorial from illness, delirium and Ativan - continue to hold Ativan and other benzodiazepine - ammonia level was normal - CT brain on 08/07/2020 did not show any acute intracranial abnormalities. Mild nonspecific cerebral white matter disease which likely represents chronic small vessel ischemic disease. (10) Anemia:
--- NOTE | 2020-08-10 15:47 | PM.IMPN ---
Progress Note: A&P Assessment and Plan (1) Acute and chronic respiratory failure: Code(s): J96.20 - Acute and chronic respiratory failure, unspecified whether with hypoxia or hypercapnia Status: Acute Assessment and Plan: Patient requiring increasing O2 from baseline. ABG showing 7.45/37/57 on 15L HFNC. Currently at Airvo now. Did receive Lasix x2 (08/02, 08/03). Concern for aspiration now given his malnutrition with BMI 18 and obtunded state. Abx started. WBC higher again at 22K. Continue current management for COVID 19. NG tube placed and tolerating tube feedings. CXR reviewed showing no significant change. Wean O2 as tolerated back to baseline. Discussed with dtr. 08/10/20 15:47 patient is 74-year-old male with a history of polycythemia vera chronic respiratory failure secondary to COPD and alcohol abuse, patient was recently discharged from the hospital after he was treated for encephalopathy and discharged on July 18, his family brought to emergency department on July 29 with complaint of cough shortness of breath shaking, he was found to new onset atrial fibrillation he was started on diltiazem drip, he was tested COVID-19 and was positive, currently patient he is on high-flow oxygen, he is off diltiazem drip and on oral diltiazem rate is controlled, seen by Cardiology, had a cardiac echo showed ejection fraction of 55% and dialysate dysfunction and moderate pulmonary hypertension, patient continued to require high-flow oxygen he has completed course of remdesivir and being treated with dexamethasone patient is seen by security system installer we will continue to monitor. today 08/[address] Matos patient is more alert and wake today, on 08/08 he had pulled out his NG tube and had swallow study he passed and now on he is on nector thick diet, he is clinically improving, his oxygen requirement is improving, today he is sitting in the chair, plan is to have PT/OT evaluate the patient and further recommendation to follow, patient is seen by cardioloigist for A, Fib, his rate is controlled diltiazem 60mg q6. (2) Pneumonia due to COVID-19 virus: Code(s): U07.1 - COVID-19; J12.89 - Other viral pneumonia Status: Acute Assessment and Plan: Sx began on 07/28 and tested positive 07/29. Has chronic O2 requirement but worsened due to COVID-19. Dexamethasone started on 08/01/20 (Day 6). Remdesivir started on 08/01/20 and completed 5 Day course. Continue supportive care. (3) Atrial fibrillation with RVR: Code(s): I48.91 - Unspecified atrial fibrillation Status: Acute Assessment and Plan: Appears to be new onset atrial fibrillation with rapid ventricular response. Echo showing EF 55-60% with normal diastolic function. Moderate pulmonary HTN noted as well (48mmHg). 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 Converted to NSR but appears to be in/out of AFib. Patient being transitioned to Cardizem via NG tube. He has metoprolol IV as needed for tachycardia (last dose 08/03). Appreciate Cardiology input. Anticoagulation on hold. (4) Acute encephalopathy: Code(s): G93.40 - Encephalopathy, unspecified Status: Acute Assessment and Plan: Patient with altered mental status most likely related to COVID and acute hypoxia. Slightly better. No focal weakness but will need CT brain when able. (5) Elevated troponin: Code(s): R79.89 - Other specified abnormal findings of blood chemistry Status: Acute Assessment and Plan: Jody
[2020-08-10 17:48] LABS: Glucose Point of Care 113 (65-105)
[2020-08-10] MEDS: ENOXAPARIN 40 MG/0.4 ML SYRINGE SUB-Q (21:28)
[2020-08-11] VITALS (15 sets, daily range): BP systolic 95–122; BP diastolic 55–65; PULSE 69–91; RESP 16–24; TEMP 36.2–36.9; O2SAT 90–95
[2020-08-11] MEDS: dilTIAZem HCL 60 MG TABLET PO ×4 (00:08→17:18)
[2020-08-11] MEDS: LEVALBUTEROL HFA (*SP) 15 GM INHALER 2 PUFF INHALATION ×5 (00:55→20:55)
[2020-08-11] MEDS: ACETAMINOPHEN ELIXIR 325 MG/10.15 ML UDC 650 MG FEED TUBE ×2 (03:13→11:55)
[2020-08-11] MEDS: CENTRAL LINE FLUSH 10 ML IV PUSH ×2 (06:36→21:29)
[2020-08-11 06:46] LABS: Hematocrit 27.1 % (42.0-52.0); Mean Corpuscular HGB Conc 29.5 g/dl (32-36); Mean Corpuscular Hemoglobin 22.1 pg (26-34); Mean Corpuscular Volume 74.9 fl (80-100); Mean Platelet Volume 11.6 fl (7.4-10.4); Platelet Count Result 354 k/mm3 (150-375); Red Blood Count 3.62 M/mm3 (4.6-6.20); White Blood Count 21.1 K/mm3 (4.5-10.0)
[2020-08-11 06:57] LABS: D Dimer 1.63 ug/mL (<0.48)
[2020-08-11 07:00] LABS: Alanine Aminotransferase 43 U/L (4-50); Albumin Level 2.4 g/dL (3.5-5.1); Alkaline Phosphatase 56 U/L (38-126); Anion Gap 2 mmol/L (8-16); Aspartate Amino Transferase 38 U/L (17-59); Bilirubin,Total 0.8 mg/dL (0.2-1.3); Blood Urea Nitrogen 35 mg/dL (9-20); CRP < 0.5 mg/dL (<1.0); Calcium 7.4 mg/dL (8.4-10.2); Carbon Dioxide 29 mmol/L (22-30); Chloride 101 mmol/L (98-107); Estimated CRCL calculation 61 ml/min; Estimated Glomerular Filt Rate > 60; Glucose 84 mg/dL (75-110); Lactate Dehydrogenase 686 U/L (313-618); Magnesium 2.3 mg/dL (1.6-2.3); Potassium 4.4 mmol/L (3.4-5.0); Sodium 132 mmol/L (137-145)
[2020-08-11 07:14] LABS: Iron 33 ug/dL (49-181)
[2020-08-11 07:23] LABS: Percent Iron Saturation 11 % (20-50)
[2020-08-11] MEDS: FLUTICASONE/SALMETEROL 45-21 MCG INHALER 1 PUFF 2 PUFF INHALATION ×2 (08:45→20:55)
[2020-08-11] MEDS: ASPIRIN 81 MG CHEWABLE TABLET FEED TUBE (08:58)
[2020-08-11] MEDS: FOLIC ACID 1 MG TABLET FEED TUBE (08:59)
[2020-08-11] MEDS: PANTOPRAZOLE SODIUM IV 40 MG VIAL IV PUSH ×2 (08:59→21:29)
[2020-08-11] MEDS: THIAMINE HCL 200 MG/2 ML VIAL 100 MG IV PUSH (08:59)
--- NOTE | 2020-08-11 09:37 | WPDINTPN ---
Progress Note: A&P Assessment and Plan (1) Acute and chronic respiratory failure: Code(s): J96.20 - Acute and chronic respiratory failure, unspecified whether with hypoxia or hypercapnia Status: Acute Assessment and Plan: Patient with history of COPD on home oxygen. admitted with COVID-19 pneumonia. - His respiratory failure is multifactorial with COVID-19 pneumonia, baseline severe COPD, congestive heart failure. - currently on AirVo, wean FiO2 to maintain O2 sats greater than 90% since he has severe COPD. Patient is able to protect his airway at this time - chest x-ray reviewed - WBC count trending down could be likely secondary to steroids, occult infection. he was started on vancomycin and Zosyn on 08/04/2020 will continue for total of 10 days - patient working with PT/OT - up in chair (2) Pneumonia due to COVID-19 virus: Code(s): U07.1 - COVID-19; J12.89 - Other viral pneumonia Status: Acute Assessment and Plan: continue dexamethasone completed course of remdesivir. Inflammatory markers trending down conservative IV fluids (3) Atrial fibrillation with RVR: Code(s): I48.91 - Unspecified atrial fibrillation Status: Acute Assessment and Plan: Appears to be new onset atrial fibrillation with rapid ventricular response. Echo showing EF 55-60% with normal diastolic function. Moderate pulmonary HTN noted as well (48mmHg). continue p.o. diltiazem. Patient currently in A fib, rate controlled. continue aspirin not on anticoagulation due to anemia (4) Elevated troponin: Code(s): R79.89 - Other specified abnormal findings of blood chemistry Status: Acute Assessment and Plan: Troponin peaked at 0.076. Likely secondary to rapid AFib. Cardiology is following and no plan for further workup at this time. (5) COPD exacerbation: Code(s): J44.1 - Chronic obstructive pulmonary disease with (acute) exacerbation Status: Acute Assessment and Plan: Stable. Continue Advair and Xopenex inhaler will increase frequency to q.4 hours (6) Alcohol abuse: Code(s): F10.10 - Alcohol abuse, uncomplicated Status: Chronic Assessment and Plan: continue thiamine, folic acid hold Ativan at this time due to encephalopathy neurochecks (7) GERD (gastroesophageal reflux disease): Qualifiers: Esophagitis presence: esophagitis presence not specified Qualified Code(s): K21.9 - Gastro-esophageal reflux disease without esophagitis Code(s): K21.9 - Gastro-esophageal reflux disease without esophagitis Status: Chronic Assessment and Plan: Stable. Continue Protonix. (8) Electrolyte abnormality: Code(s): E87.8 - Other disorders of electrolyte and fluid balance, not elsewhere classified Status: Acute Assessment and Plan: potassium was replaced yesterday and is in normal range today sodium within normal limits (9) Acute encephalopathy: Code(s): G93.40 - Encephalopathy, unspecified Status: Acute Assessment and Plan: IMPROVING: patient more awake, alert, oriented x3 - encephalopathy is likely multifactorial from illness, delirium and Ativan - continue to hold Ativan and other benzodiazepine - ammonia level was normal - CT brain on 08/07/2020 did not show any acute intracranial abnormalities. Mild nonspecific cerebral white matter disease which likely represents chronic small vessel ischemic disease. (10) Anemia: Qualifiers: Anemia type: unspecified type Qualified Code(s): D64.9 - Anemia, unspecified Code(s): D64.9 - Anemia, unspecified Status: Acute Assessment and Plan: no obvious bleeding but hemoglobin has dropped but is now stable continue monitor hemoglobin continue PPI IV twice a day patient at risk of stress gastritis due to being on steroids, aspirin and DVT prophyl
--- NOTE | 2020-08-11 11:13 | PCDIET ---
Nutrition Follow-Up Complete: Suboptimal oral intake related to decreased appetite as evidenced by average intake of 20% of meals with poor intake reported on admission. Patient to consume 50% of meals and supplements or greater. Goal: Progressing towards goal. Continue goal. Pt current nutrition is Minced and Moist level 5 with Mildly Thick fluids+Ensure compact TID Nutrition recommendation: Agree Last recorded weight is 63.3 kg, down from 64.9kg (I/O -210ml) Bowel Motility: No BM noted Labs Reviewed: Hgb 8.0, Hct 27.1, Alb 2.4, Na 132, BUN 35, Glucose 1.3 Meds Noted: Dulcolax, Folic Acid, Lopressor, Miralax, Thiamine, Vancomycin Additional Notes: Pt has been refusing meals and not eating well. Today he is more alert per RN and ate 80% of breakfast. Wanting a cheeseburger. Speech called to reassess swallowing now that he is more alert. Wt down slightly. Buttocks maceration and ulceration on penis noted. Bowel motility agents on board. Pt to downgrade to IMU states. Pt may benefit from supplemental iron due to low hgb/hct, low serum iron, low RBCs, Low MCV, low MCH, and low MCHC. We will continue to monitor for diet changes and adequate intake every 3 days.
[2020-08-11] MEDS: BENZONATATE 100 MG CAPSULE 200 MG PO ×2 (11:56→17:18)
--- NOTE | 2020-08-11 15:03 | PM.IMPN ---
Progress Note: A&P Assessment and Plan (1) Acute and chronic respiratory failure: Code(s): J96.20 - Acute and chronic respiratory failure, unspecified whether with hypoxia or hypercapnia Status: Acute Assessment and Plan: Patient requiring increasing O2 from baseline. ABG showing 7.45/37/57 on 15L HFNC. Currently at Airvo now. Did receive Lasix x2 (08/02, 08/03). Concern for aspiration now given his malnutrition with BMI 18 and obtunded state. Abx started. WBC higher again at 22K. Continue current management for COVID 19. NG tube placed and tolerating tube feedings. CXR reviewed showing no significant change. Wean O2 as tolerated back to baseline. Discussed with dtr. 08/11/20 15:03 patient is 74-year-old male with a history of polycythemia vera chronic respiratory failure secondary to COPD and alcohol abuse, patient was recently discharged from the hospital after he was treated for encephalopathy and discharged on July 18, his family brought to emergency department on July 29 with complaint of cough shortness of breath shaking, he was found to new onset atrial fibrillation he was started on diltiazem drip, he was tested COVID-19 and was positive, currently patient he is on high-flow oxygen, he is off diltiazem drip and on oral diltiazem rate is controlled, seen by Cardiology, had a cardiac echo showed ejection fraction of 55% and dialysate dysfunction and moderate pulmonary hypertension, patient continued to require high-flow oxygen he has completed course of remdesivir and being treated with dexamethasone patient is seen by books binder we will continue to monitor. today 08/[address] Matos patient is more alert and wake today, on 08/08 he had pulled out his NG tube and had swallow study he passed and now on he is on nector thick diet, he is clinically improving, his oxygen requirement is improving, today he is sitting in the chair, plan is to have PT/OT evaluate the patient and will transfer patient out of ICU to IMU, further recommendation to follow, patient is seen by cardioloigist for A, Fib, his rate is controlled diltiazem 60mg q6. (2) Pneumonia due to COVID-19 virus: Code(s): U07.1 - COVID-19; J12.89 - Other viral pneumonia Status: Acute Assessment and Plan: Sx began on 07/28 and tested positive 07/29. Has chronic O2 requirement but worsened due to COVID-19. Dexamethasone started on 08/01/20 (Day 6). Remdesivir started on 08/01/20 and completed 5 Day course. Continue supportive care. (3) Atrial fibrillation with RVR: Code(s): I48.91 - Unspecified atrial fibrillation Status: Acute Assessment and Plan: Appears to be new onset atrial fibrillation with rapid ventricular response. Echo showing EF 55-60% with normal diastolic function. Moderate pulmonary HTN noted as well (48mmHg). 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 Converted to NSR but appears to be in/out of AFib. Patient being transitioned to Cardizem via NG tube. He has metoprolol IV as needed for tachycardia (last dose 08/03). Appreciate Cardiology input. Anticoagulation on hold. (4) Acute encephalopathy: Code(s): G93.40 - Encephalopathy, unspecified Status: Acute Assessment and Plan: Patient with altered mental status most likely related to COVID and acute hypoxia. Slightly better. No focal weakness but will need CT brain when able. (5) Elevated troponin: Code(s): R79.89 - Other specified abnormal findings of blood chemistry Status: Acute Assessment and Plan: Troponin peaked at 0.076. Likely secondary to rapid AFib. Cardiology is f
--- NOTE | 2020-08-11 18:40 | PC.NURSE ---
This patient, Sebastián Recinos, was transferred to [[facility] room 330 ] on 08/11/20 at 1820. Personal belongings sent with patient, phone, chargerbox, watch, necklace, picturesx4 dentures, home meds.. Belongings list checked and signed with [place] [place] Report given to [ gary rn]. Family; bradley notified. Appropriate documentation sent with patient.
[2020-08-11] MEDS: ENOXAPARIN 40 MG/0.4 ML SYRINGE SUB-Q (21:29)
[2020-08-12] VITALS (12 sets, daily range): BP systolic 103–128; BP diastolic 53–78; PULSE 63–90; RESP 20–22; TEMP 36.5–36.7; O2SAT 86–94
[2020-08-12] MEDS: dilTIAZem HCL 60 MG TABLET PO ×4 (00:17→16:56)
[2020-08-12] MEDS: LEVALBUTEROL HFA (*SP) 15 GM INHALER 2 PUFF INHALATION ×3 (05:19→09:10)
[2020-08-12 05:45] LABS: Hematocrit 28.2 % (42.0-52.0); Hemoglobin 8.3 g/dL (14.0-18.0); Immature Platelet Fraction Pct 6.6 % (0.9-11.2); Mean Corpuscular HGB Conc 29.4 g/dl (32-36); Mean Corpuscular Hemoglobin 22.1 pg (26-34); Mean Corpuscular Volume 75.2 fl (80-100); Mean Platelet Volume 12.2 fl (7.4-10.4); Platelet Count Result 294 k/mm3 (150-375); Red Blood Count 3.75 M/mm3 (4.6-6.20); Red Cell Distribution Width 21.3 % (11.5-14.5); White Blood Count 19.4 K/mm3 (4.5-10.0)
[2020-08-12 06:02] LABS: Alanine Aminotransferase 39 U/L (4-50); Albumin Level 2.4 g/dL (3.5-5.1); Alkaline Phosphatase 66 U/L (38-126); Anion Gap 3 mmol/L (8-16); Aspartate Amino Transferase 28 U/L (17-59); Bilirubin,Total 0.8 mg/dL (0.2-1.3); Blood Urea Nitrogen 26 mg/dL (9-20); Calcium 7.4 mg/dL (8.4-10.2); Carbon Dioxide 30 mmol/L (22-30); Chloride 102 mmol/L (98-107); Estimated CRCL calculation 61 ml/min; Estimated Glomerular Filt Rate > 60; Glucose 71 mg/dL (75-110); Magnesium 2.2 mg/dL (1.6-2.3); Phosphorus 3.5 mg/dL (2.5-4.5); Potassium 3.8 mmol/L (3.4-5.0); Sodium 135 mmol/L (137-145)
[2020-08-12] MEDS: CENTRAL LINE FLUSH 10 ML IV PUSH ×3 (06:27→21:53)
[2020-08-12] MEDS: PANTOPRAZOLE SODIUM IV 40 MG VIAL IV PUSH ×2 (08:55→21:52)
[2020-08-12] MEDS: BENZONATATE 100 MG CAPSULE 200 MG PO ×3 (08:55→16:56)
[2020-08-12] MEDS: FOLIC ACID 1 MG TABLET FEED TUBE (08:55)
[2020-08-12] MEDS: ASPIRIN 81 MG CHEWABLE TABLET FEED TUBE (08:55)
[2020-08-12] MEDS: THIAMINE HCL 200 MG/2 ML VIAL 100 MG IV PUSH (08:56)
[2020-08-12] MEDS: FLUTICASONE/SALMETEROL 45-21 MCG INHALER 1 PUFF 2 PUFF INHALATION ×2 (09:10→20:38)
--- NOTE | 2020-08-12 11:44 | PCPTNOTE ---
Patient refused treatment this session due to stating that he can't do all this, eat all this food, do all this work, and I'm not getting enough oxygen. while in the room he made a phone call, and told them to come pick him up know.
[2020-08-12] MEDS: LEVALBUTEROL HFA (*SP) 15 GM INHALER 6 PUFF INHALATION ×4 (12:02→20:39)
--- NOTE | 2020-08-12 13:26 | PCOTNOTE ---
Attempted to see patient this pm, however patient refused. I dont' want to move right now. Per RN, patient is having a bad day.
--- NOTE | 2020-08-12 15:10 | PM.IMPN ---
Progress Note: A&P Assessment and Plan (1) Acute and chronic respiratory failure: Code(s): J96.20 - Acute and chronic respiratory failure, unspecified whether with hypoxia or hypercapnia Status: Acute Assessment and Plan: Patient requiring increasing O2 from baseline. ABG showing 7.45/37/57 on 15L HFNC. Currently at Airvo now. Did receive Lasix x2 (08/02, 08/03). Concern for aspiration now given his malnutrition with BMI 18 and obtunded state. Abx started. WBC higher again at 22K. Continue current management for COVID 19. NG tube placed and tolerating tube feedings. CXR reviewed showing no significant change. Wean O2 as tolerated back to baseline. Discussed with dtr. 08/12/20 15:10 patient is 74-year-old male with a history of polycythemia vera chronic respiratory failure secondary to COPD and alcohol abuse, patient was recently discharged from the hospital after he was treated for encephalopathy and discharged on July 18, his family brought to emergency department on July 29 with complaint of cough shortness of breath shaking, he was found to new onset atrial fibrillation he was started on diltiazem drip, he was tested COVID-19 and was positive, currently patient he is on high-flow oxygen, he is off diltiazem drip and on oral diltiazem rate is controlled, seen by Cardiology, had a cardiac echo showed ejection fraction of 55% and dialysate dysfunction and moderate pulmonary hypertension, patient continued to require high-flow oxygen he has completed course of remdesivir and being treated with dexamethasone patient is seen by auto specialty services manager we will continue to monitor. on 08/[address] Matos patient was more alert and wake, , on 08/08 he had pulled out his NG tube and had swallow study he passed and now on he is on nector thick diet, he was clinically improving and his oxygen requirement was improving he was transferred out of ICU on 08/11, today on 08/12 patient is seen in the room he is laying down, he wearing Airvo, he wants to go home, patient still requiring high flow oxygen, patient will benefit from acute rehab before discharging home. patient is seen by cardioloigist for A, Fib, his rate is controlled diltiazem 60mg q6. (2) Pneumonia due to COVID-19 virus: Code(s): U07.1 - COVID-19; J12.89 - Other viral pneumonia Status: Acute Assessment and Plan: Sx began on 07/28 and tested positive 07/29. Has chronic O2 requirement but worsened due to COVID-19. Dexamethasone started on 08/01/20 (Day 6). Remdesivir started on 08/01/20 and completed 5 Day course. Continue supportive care. (3) Atrial fibrillation with RVR: Code(s): I48.91 - Unspecified atrial fibrillation Status: Acute Assessment and Plan: Appears to be new onset atrial fibrillation with rapid ventricular response. Echo showing EF 55-60% with normal diastolic function. Moderate pulmonary HTN noted as well (48mmHg). 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 Converted to NSR but appears to be in/out of AFib. Patient being transitioned to Cardizem via NG tube. He has metoprolol IV as needed for tachycardia (last dose 08/03). Appreciate Cardiology input. Anticoagulation on hold. (4) Acute encephalopathy: Code(s): G93.40 - Encephalopathy, unspecified Status: Acute Assessment and Plan: Patient with altered mental status most likely related to COVID and acute hypoxia. Slightly better. No focal weakness but will need CT brain when able. (5) Elevated troponin: Code(s): R79.89 - Other specified abnormal findings of blood chemistry Status: Acute Assessment and Plan
[2020-08-12] MEDS: POTASSIUM CHLORIDE 20 MEQ TABLET 40 MEQ PO (16:56)
[2020-08-12] MEDS: ENOXAPARIN 40 MG/0.4 ML SYRINGE SUB-Q (21:52)
[2020-08-13] VITALS (9 sets, daily range): BP systolic 111–123; BP diastolic 52–71; PULSE 67–97; RESP 20–22; TEMP 35.6–37; O2SAT 88–95
[2020-08-13] MEDS: LEVALBUTEROL HFA (*SP) 15 GM INHALER 6 PUFF INHALATION ×6 (00:30→23:43)
[2020-08-13] MEDS: dilTIAZem HCL 60 MG TABLET PO ×5 (00:50→23:48)
[2020-08-13] MEDS: CENTRAL LINE FLUSH 10 ML IV PUSH ×3 (05:50→20:53)
[2020-08-13 06:05] LABS: Hematocrit 28.2 % (42.0-52.0); Hemoglobin 8.3 g/dL (14.0-18.0); Mean Corpuscular HGB Conc 29.4 g/dl (32-36); Mean Corpuscular Hemoglobin 22.4 pg (26-34); Platelet Count Result 323 k/mm3 (150-375); Red Blood Count 3.71 M/mm3 (4.6-6.20); Red Cell Distribution Width 22.1 % (11.5-14.5)
[2020-08-13 06:25] LABS: CRP 4.4 mg/dL (<1.0)
[2020-08-13 06:51] LABS: D Dimer 0.79 ug/mL (<0.48)
[2020-08-13] MEDS: FLUTICASONE/SALMETEROL 45-21 MCG INHALER 1 PUFF 2 PUFF INHALATION (07:51)
[2020-08-13] MEDS: PANTOPRAZOLE SODIUM IV 40 MG VIAL IV PUSH ×2 (08:30→20:52)
[2020-08-13] MEDS: ASPIRIN 81 MG CHEWABLE TABLET FEED TUBE (08:30)
[2020-08-13] MEDS: BENZONATATE 100 MG CAPSULE 200 MG PO ×3 (08:30→17:49)
[2020-08-13] MEDS: FOLIC ACID 1 MG TABLET FEED TUBE (08:30)
[2020-08-13] MEDS: THIAMINE HCL 200 MG/2 ML VIAL 100 MG IV PUSH (08:30)
[2020-08-13] MEDS: polyethylene glycoL 3350 17 GM POWD.PACK PO (08:30)
[2020-08-13 09:39] LABS: Alanine Aminotransferase 27 U/L (4-50); Albumin Level 2.3 g/dL (3.5-5.1); Alkaline Phosphatase 64 U/L (38-126); Anion Gap 3 mmol/L (8-16); Aspartate Amino Transferase 23 U/L (17-59); Bilirubin,Total 0.7 mg/dL (0.2-1.3); Blood Urea Nitrogen 19 mg/dL (9-20); Calcium 7.6 mg/dL (8.4-10.2); Carbon Dioxide 25 mmol/L (22-30); Chloride 106 mmol/L (98-107); Estimated CRCL calculation 80 ml/min; Estimated Glomerular Filt Rate > 60; Glucose 85 mg/dL (75-110); Lactate Dehydrogenase 568 U/L (313-618); Potassium 4.1 mmol/L (3.4-5.0); Sodium 134 mmol/L (137-145)
--- NOTE | 2020-08-13 13:59 | PCPTNOTE ---
Patient refused treatment this session due to full from lunch, being to tired, and still finishing his lunch. Then NO I'm not doing anything.
[2020-08-13] MEDS: ACETAMINOPHEN ELIXIR 325 MG/10.15 ML UDC 650 MG PO (14:16)
--- NOTE | 2020-08-13 14:30 | PCOTNOTE ---
Attempted to see patient this date, however patient refused.
--- NOTE | 2020-08-13 16:19 | PM.IMPN ---
Progress Note: A&P Assessment and Plan (1) Acute and chronic respiratory failure: Code(s): J96.20 - Acute and chronic respiratory failure, unspecified whether with hypoxia or hypercapnia Status: Acute Assessment and Plan: Patient requiring increasing O2 from baseline. ABG showing 7.45/37/57 on 15L HFNC. Currently at [facility] now. Did receive Lasix x2 (08/02, 08/03). Concern for aspiration now given his malnutrition with BMI 18 and obtunded state. Abx started. WBC higher again at 22K. Continue current management for COVID 19. NG tube placed and tolerating tube feedings. CXR reviewed showing no significant change. Wean O2 as tolerated back to baseline. Discussed with dtr. 08/13/20 16:19 patient is 74-year-old male with a history of polycythemia vera chronic respiratory failure secondary to COPD and alcohol abuse, patient was recently discharged from the hospital after he was treated for encephalopathy and discharged on July 18, his family brought to emergency department on July 29 with complaint of cough shortness of breath shaking, he was found to new onset atrial fibrillation he was started on diltiazem drip, he was tested COVID-19 and was positive, currently patient he is on high-flow oxygen, he is off diltiazem drip and on oral diltiazem rate is controlled, seen by Cardiology, had a cardiac echo showed ejection fraction of 55% and dialysate dysfunction and moderate pulmonary hypertension, patient continued to require high-flow oxygen he has completed course of remdesivir and being treated with dexamethasone patient is seen by rail tractor operator we will continue to monitor. on 08/[address] Matos patient was more alert and wake, , on 08/08 he had pulled out his NG tube and had swallow study he passed and now on he is on nector thick diet, he was clinically improving and his oxygen requirement was improving he was transferred out of ICU on 08/11, today on 08/13 patient is seen in the room he is laying down, he wearing [facility], he wants to go home, patient still requiring high flow oxygen, today patient is more calm and cooperative, patient has completed his Remdesivir and Dexamethasone, patient will complete 10 day course of Zosyn and vancomycin today, patient is recovering very slowly still requiring high oxygen, patient will benefit from acute rehab before discharging home. patient is seen by cardioloigist for A, Fib, his rate is controlled diltiazem 60mg q6. (2) Pneumonia due to COVID-19 virus: Code(s): U07.1 - COVID-19; J12.89 - Other viral pneumonia Status: Acute Assessment and Plan: Sx began on 07/28 and tested positive 07/29. Has chronic O2 requirement but worsened due to COVID-19. Dexamethasone started on 08/01/20 (Day 6). Remdesivir started on 08/01/20 and completed 5 Day course. Continue supportive care. (3) Atrial fibrillation with RVR: Code(s): I48.91 - Unspecified atrial fibrillation Status: Acute Assessment and Plan: Appears to be new onset atrial fibrillation with rapid ventricular response. Echo showing EF 55-60% with normal diastolic function. Moderate pulmonary HTN noted as well (48mmHg). 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 Converted to NSR but appears to be in/out of AFib. Patient being transitioned to Cardizem via NG tube. He has metoprolol IV as needed for tachycardia (last dose 08/03). Appreciate Cardiology input. Anticoagulation on hold. (4) Acute encephalopathy: Code(s): G93.40 - Encephalopathy, unspecified Status: Acute Assessment and Plan: Patient with altered mental status most likely related to COVID and ac
[2020-08-13] MEDS: ENOXAPARIN 40 MG/0.4 ML SYRINGE SUB-Q (20:52)
[2020-08-13] MEDS: guaiFENesin 12 HR 600 MG TABCR 1200 MG PO (21:58)
[2020-08-14] VITALS (8 sets, daily range): BP systolic 107–129; BP diastolic 72–86; PULSE 65–90; RESP 18–22; TEMP 36.3–36.4; O2SAT 84–97
[2020-08-14] MEDS: ACETAMINOPHEN ELIXIR 325 MG/10.15 ML UDC 650 MG PO ×2 (01:34→08:14)
[2020-08-14] MEDS: LEVALBUTEROL HFA (*SP) 15 GM INHALER 6 PUFF INHALATION ×5 (04:10→21:00)
[2020-08-14] MEDS: dilTIAZem HCL 60 MG TABLET PO ×4 (05:01→23:44)
[2020-08-14] MEDS: CENTRAL LINE FLUSH 10 ML IV PUSH ×3 (05:11→20:43)
[2020-08-14 05:20] LABS: Hematocrit 27.3 % (42.0-52.0); Hemoglobin 8.1 g/dL (14.0-18.0); Immature Platelet Fraction Pct 5.4 % (0.9-11.2); Mean Corpuscular HGB Conc 29.7 g/dl (32-36); Mean Corpuscular Hemoglobin 22.1 pg (26-34); Mean Corpuscular Volume 74.4 fl (80-100); Mean Platelet Volume 11.4 fl (7.4-10.4); Platelet Count Result 270 k/mm3 (150-375); Red Blood Count 3.67 M/mm3 (4.6-6.20); White Blood Count 19.4 K/mm3 (4.5-10.0)
[2020-08-14 05:31] LABS: Alanine Aminotransferase 28 U/L (4-50); Albumin Level 2.4 g/dL (3.5-5.1); Alkaline Phosphatase 65 U/L (38-126); Anion Gap 2 mmol/L (8-16); Aspartate Amino Transferase 28 U/L (17-59); Bilirubin,Total 0.8 mg/dL (0.2-1.3); Blood Urea Nitrogen 18 mg/dL (9-20); Calcium 7.8 mg/dL (8.4-10.2); Carbon Dioxide 26 mmol/L (22-30); Chloride 106 mmol/L (98-107); Estimated CRCL calculation 80 ml/min; Estimated Glomerular Filt Rate > 60; Glucose 79 mg/dL (75-110); Potassium 4.5 mmol/L (3.4-5.0); Sodium 134 mmol/L (137-145)
[2020-08-14] MEDS: BENZONATATE 100 MG CAPSULE 200 MG PO ×3 (07:56→17:45)
[2020-08-14] MEDS: PANTOPRAZOLE SODIUM IV 40 MG VIAL IV PUSH ×2 (07:56→20:43)
[2020-08-14] MEDS: THIAMINE HCL 200 MG/2 ML VIAL 100 MG IV PUSH (07:56)
[2020-08-14] MEDS: FOLIC ACID 1 MG TABLET FEED TUBE (07:56)
[2020-08-14] MEDS: guaiFENesin 12 HR 600 MG TABCR 1200 MG PO ×2 (07:56→20:43)
[2020-08-14] MEDS: ASPIRIN 81 MG CHEWABLE TABLET FEED TUBE (07:56)
[2020-08-14] MEDS: FLUTICASONE/SALMETEROL 45-21 MCG INHALER 1 PUFF 2 PUFF INHALATION ×2 (10:07→21:00)
[2020-08-14] MEDS: BISACODYL 10 MG SUPPOSITORY RECTAL (10:24)
--- NOTE | 2020-08-14 11:42 | PCNFU ---
Nutrition Follow-Up Complete: Suboptimal oral intake related to decreased appetite as evidenced by average intake of 20% of meals with poor intake reported on admission. Goal: Patient to consume 50% of meals and supplements or greater. Limited progress towards goal. We will continue current goal. Pt current nutrition is Minced and Moist Level 5/Mildly Thick, Level 2. Nutrition recommendation: Agree Last recorded weight is 63.3 kg. Bowel Motility:+BM noted 08/12 Labs Reviewed:Na 134 Meds Noted:Thiamine, Mucinex,Folic Acid,Zosyn Additional Notes: Nutrition Follow up today. Covid positive,I spoke with nursing today. Oral intake has been poor 0-10% of meals mainly eating applesauce and puddings. Discussed adding nutritional treat ice cream mixed with root beer thickened to mildly thick, level 2. Nutritional treat ice cream is providing an additional 300 kcals and 20 gms protein. MD orders for ONS. PO intake is encouraged. Monitoring: Follow up in 3 days.
--- NOTE | 2020-08-14 17:43 | PM.IMPN ---
Progress Note: A&P Assessment and Plan (1) Acute and chronic respiratory failure: Code(s): J96.20 - Acute and chronic respiratory failure, unspecified whether with hypoxia or hypercapnia Status: Acute Assessment and Plan: Patient requiring increasing O2 from baseline. ABG showing 7.45/37/57 on 15L HFNC. Currently at [facility] now. Did receive Lasix x2 (08/02, 08/03). Concern for aspiration now given his malnutrition with BMI 18 and obtunded state. Abx started. WBC higher again at 22K. Continue current management for COVID 19. NG tube placed and tolerating tube feedings. CXR reviewed showing no significant change. Wean O2 as tolerated back to baseline. Discussed with dtr. 08/14/20 17:43 patient is 74-year-old male with a history of polycythemia vera chronic respiratory failure secondary to COPD and alcohol abuse, patient was recently discharged from the hospital after he was treated for encephalopathy and discharged on July 18, his family brought to emergency department on July 29 with complaint of cough shortness of breath shaking, he was found to new onset atrial fibrillation he was started on diltiazem drip, he was tested COVID-19 and was positive, currently patient he is on high-flow oxygen, he is off diltiazem drip and on oral diltiazem rate is controlled, seen by Cardiology, had a cardiac echo showed ejection fraction of 55% and dialysate dysfunction and moderate pulmonary hypertension, patient continued to require high-flow oxygen he has completed course of remdesivir and being treated with dexamethasone patient is seen by technical account manager we will continue to monitor. on 08/[address] Matos patient was more alert and wake, , on 08/08 he had pulled out his NG tube and had swallow study he passed and now on he is on nector thick diet, he was clinically improving and his oxygen requirement was improving he was transferred out of ICU on 08/11, today on 08/13 patient is seen in the room he is laying down, he wearing [facility], he wants to go home, patient still requiring high flow oxygen, today patient is more calm and cooperative, patient has completed his Remdesivir and Dexamethasone, 08/14 today patient is still requiring high oxygen will continue abx for another 4 days, will try to wean patient of high oxygen so we can dischage him to rehab, patient has very slow recovery due to his chronic medical problems due to alcohol abuse, patient wih chronic pain will start him on norco 5/326 q4 PRN, patient is seen by cardioloigist for A, Fib, his rate is controlled diltiazem 60mg (2) Pneumonia due to COVID-19 virus: Code(s): U07.1 - COVID-19; J12.89 - Other viral pneumonia Status: Acute Assessment and Plan: Sx began on 07/28 and tested positive 07/29. Has chronic O2 requirement but worsened due to COVID-19. Dexamethasone started on 08/01/20 (Day 6). Remdesivir started on 08/01/20 and completed 5 Day course. Continue supportive care. (3) Atrial fibrillation with RVR: Code(s): I48.91 - Unspecified atrial fibrillation Status: Acute Assessment and Plan: Appears to be new onset atrial fibrillation with rapid ventricular response. Echo showing EF 55-60% with normal diastolic function. Moderate pulmonary HTN noted as well (48mmHg). 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 Converted to NSR but appears to be in/out of AFib. Patient being transitioned to Cardizem via NG tube. He has metoprolol IV as needed for tachycardia (last dose 08/03). Appreciate Cardiology input. Anticoagulation on hold. (4) Acute encephalopathy: Code(s): G93.40 - Encephalopathy, unspecified Status: Acute Assessment and Plan: Patient with altered mental status most likely related to COVID and acute hypo
[2020-08-14] MEDS: HYDROcodone/acetaminophen (*CRX) 5-325 MG TABLET 1 TAB PO ×2 (18:22→22:39)
[2020-08-14] MEDS: ENOXAPARIN 40 MG/0.4 ML SYRINGE SUB-Q (20:43)
[2020-08-15] VITALS (11 sets, daily range): BP systolic 111–125; BP diastolic 56–75; PULSE 63–87; RESP 18–20; TEMP 36.1–36.7; O2SAT 90–97; BMI 11.0
[2020-08-15] MEDS: LEVALBUTEROL HFA (*SP) 15 GM INHALER 6 PUFF INHALATION ×5 (00:04→16:22)
[2020-08-15] MEDS: HYDROcodone/acetaminophen (*CRX) 5-325 MG TABLET 1 TAB PO ×4 (04:21→22:53)
[2020-08-15 04:48] LABS: Hematocrit 28.1 % (42.0-52.0); Hemoglobin 8.4 g/dL (14.0-18.0); Mean Corpuscular HGB Conc 29.9 g/dl (32-36); Mean Corpuscular Hemoglobin 22.6 pg (26-34); Mean Corpuscular Volume 75.5 fl (80-100); Platelet Count Result 308 k/mm3 (150-375); Red Blood Count 3.72 M/mm3 (4.6-6.20); Red Cell Distribution Width 22.5 % (11.5-14.5)
[2020-08-15] MEDS: dilTIAZem HCL 60 MG TABLET PO ×4 (04:54→23:51)
[2020-08-15] MEDS: CENTRAL LINE FLUSH 10 ML IV PUSH ×3 (04:54→22:58)
[2020-08-15 05:00] LABS: D Dimer 1.08 ug/mL (<0.48)
[2020-08-15 05:01] LABS: Alanine Aminotransferase 27 U/L (4-50); Albumin Level 2.5 g/dL (3.5-5.1); Alkaline Phosphatase 66 U/L (38-126); Anion Gap 3 mmol/L (8-16); Aspartate Amino Transferase 30 U/L (17-59); Bilirubin,Total 0.7 mg/dL (0.2-1.3); Blood Urea Nitrogen 19 mg/dL (9-20); Calcium 8.1 mg/dL (8.4-10.2); Carbon Dioxide 25 mmol/L (22-30); Chloride 103 mmol/L (98-107); Estimated CRCL calculation 80 ml/min; Estimated Glomerular Filt Rate > 60; Glucose 80 mg/dL (75-110); Potassium 4.5 mmol/L (3.4-5.0); Sodium 131 mmol/L (137-145)
[2020-08-15 05:05] LABS: CRP 3.7 mg/dL (<1.0); Lactate Dehydrogenase 618 U/L (313-618)
[2020-08-15] MEDS: MAG HYDROX/AL HYDROX/SIMETH 30 ML UDC PO (05:53)
[2020-08-15] MEDS: FLUTICASONE/SALMETEROL 45-21 MCG INHALER 1 PUFF 2 PUFF INHALATION ×2 (09:12→20:18)
[2020-08-15] MEDS: FOLIC ACID 1 MG TABLET FEED TUBE (09:23)
[2020-08-15] MEDS: BENZONATATE 100 MG CAPSULE 200 MG PO ×3 (09:24→17:21)
[2020-08-15] MEDS: ASPIRIN 81 MG CHEWABLE TABLET FEED TUBE (09:24)
[2020-08-15] MEDS: guaiFENesin 12 HR 600 MG TABCR 1200 MG PO ×2 (09:25→20:08)
[2020-08-15] MEDS: polyethylene glycoL 3350 17 GM POWD.PACK PO (09:25)
[2020-08-15] MEDS: PANTOPRAZOLE SODIUM IV 40 MG VIAL IV PUSH ×2 (09:25→20:08)
[2020-08-15] MEDS: WATER FOR IRRIGATION, STERILE 1,000 ML BOTTLE 1000 ML (10:37)
--- NOTE | 2020-08-15 10:47 | PCPTNOTE ---
The PT treatment was not completed today due to patient refusal. Will continue per Plan of Care frequency and duration.
[2020-08-15] MEDS: THIAMINE HCL 200 MG/2 ML VIAL 100 MG IV PUSH (12:45)
[2020-08-15 13:12] LABS: SARS-CoV-2 RNA PCR Negative
--- NOTE | 2020-08-15 17:57 | PM.IMPN ---
Progress Note: A&P Assessment and Plan (1) Acute and chronic respiratory failure: Code(s): J96.20 - Acute and chronic respiratory failure, unspecified whether with hypoxia or hypercapnia Status: Acute Assessment and Plan: Patient requiring increasing O2 from baseline. ABG showing 7.45/37/57 on 15L HFNC. Currently at [facility] now. Did receive Lasix x2 (08/02, 08/03). Concern for aspiration now given his malnutrition with BMI 18 and obtunded state. Abx started. WBC higher again at 22K. Continue current management for COVID 19. NG tube placed and tolerating tube feedings. CXR reviewed showing no significant change. Wean O2 as tolerated back to baseline. Discussed with dtr. 08/15/20 17:57 patient is 74-year-old male with a history of polycythemia vera chronic respiratory failure secondary to COPD and alcohol abuse, patient was recently discharged from the hospital after he was treated for encephalopathy and discharged on July 18, his family brought to emergency department on July 29 with complaint of cough shortness of breath shaking, he was found to new onset atrial fibrillation he was started on diltiazem drip, he was tested COVID-19 and was positive, currently patient he is on high-flow oxygen, he is off diltiazem drip and on oral diltiazem rate is controlled, seen by Cardiology, had a cardiac echo showed ejection fraction of 55% and dialysate dysfunction and moderate pulmonary hypertension, patient continued to require high-flow oxygen he has completed course of remdesivir and being treated with dexamethasone patient is seen by hand spring repairer helper we will continue to monitor. on 08/[address] Matos patient was more alert and wake, , on 08/08 he had pulled out his NG tube and had swallow study he passed and now on he is on nector thick diet, he was clinically improving and his oxygen requirement was improving he was transferred out of ICU on 08/11, today on 08/13 patient is seen in the room he is laying down, he wearing [facility], he wants to go home, patient still requiring high flow oxygen, today patient is more calm and cooperative, patient has completed his Remdesivir and Dexamethasone, 08/15 today patient is still requiring high oxygen will continue abx for another 3 days, will try to wean patient of high oxygen so we can dischage him to rehab, patient has very slow recovery due to his chronic medical problems due to alcohol abuse, patient with chronic patient has hx of chronic pain will start him on norco 5/325 q4 scheduled,, patient was seen by cardioloigist for A, Fib, his rate is controlled diltiazem 60mg (2) Pneumonia due to COVID-19 virus: Code(s): U07.1 - COVID-19; J12.89 - Other viral pneumonia Status: Acute Assessment and Plan: Sx began on 07/28 and tested positive 07/29. Has chronic O2 requirement but worsened due to COVID-19. Dexamethasone started on 08/01/20 (Day 6). Remdesivir started on 08/01/20 and completed 5 Day course. Continue supportive care. (3) Atrial fibrillation with RVR: Code(s): I48.91 - Unspecified atrial fibrillation Status: Acute Assessment and Plan: Appears to be new onset atrial fibrillation with rapid ventricular response. Echo showing EF 55-60% with normal diastolic function. Moderate pulmonary HTN noted as well (48mmHg). 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 Converted to NSR but appears to be in/out of AFib. Patient being transitioned to Cardizem via NG tube. He has metoprolol IV as needed for tachycardia (last dose 08/03). Appreciate Cardiology input. Anticoagulation on hold. (4) Acute encephalopathy: Code(s): G93.40 - Encephalopathy, unspecified Status: Acute Assessment and Plan: Patient with altered mental status most likely related to COVID
[2020-08-15] MEDS: ENOXAPARIN 40 MG/0.4 ML SYRINGE SUB-Q (20:09)
[2020-08-15] MEDS: BENZOCAINE/MENTHOL (*BKC) 18 EA LOZENGE 1 LOZENGE PO (20:10)
[2020-08-15] MEDS: LEVALBUTEROL NEB 1.25 MG/3 ML 0.63 MG INHALATION (20:18)
[2020-08-16] VITALS (16 sets, daily range): BP systolic 106–119; BP diastolic 62–72; PULSE 66–87; RESP 16–22; TEMP 36.2–36.6; O2SAT 90–95
[2020-08-16] MEDS: LEVALBUTEROL NEB 1.25 MG/3 ML 0.63 MG INHALATION ×4 (01:35→20:43)
[2020-08-16] MEDS: dilTIAZem HCL 60 MG TABLET PO ×3 (06:35→17:56)
[2020-08-16] MEDS: HYDROcodone/acetaminophen (*CRX) 5-325 MG TABLET 1 TAB PO ×2 (06:39→10:11)
[2020-08-16 06:57] LABS: Alanine Aminotransferase 22 U/L (4-50); Albumin Level 2.4 g/dL (3.5-5.1); Alkaline Phosphatase 71 U/L (38-126); Anion Gap 5 mmol/L (8-16); Aspartate Amino Transferase 21 U/L (17-59); Bilirubin,Total 0.7 mg/dL (0.2-1.3); Blood Urea Nitrogen 20 mg/dL (9-20); Calcium 7.9 mg/dL (8.4-10.2); Carbon Dioxide 24 mmol/L (22-30); Chloride 104 mmol/L (98-107); Estimated CRCL calculation 69 ml/min; Estimated Glomerular Filt Rate > 60; Glucose 77 mg/dL (75-110); Potassium 3.6 mmol/L (3.4-5.0); Sodium 133 mmol/L (137-145)
[2020-08-16] MEDS: FLUTICASONE/SALMETEROL 45-21 MCG INHALER 1 PUFF 2 PUFF INHALATION ×2 (08:23→20:44)
[2020-08-16] MEDS: BENZONATATE 100 MG CAPSULE 200 MG PO ×3 (09:05→17:55)
[2020-08-16] MEDS: PANTOPRAZOLE SODIUM IV 40 MG VIAL IV PUSH ×2 (09:05→22:02)
[2020-08-16] MEDS: THIAMINE HCL 200 MG/2 ML VIAL 100 MG IV PUSH (09:05)
[2020-08-16] MEDS: FOLIC ACID 1 MG TABLET FEED TUBE (09:06)
[2020-08-16] MEDS: guaiFENesin 12 HR 600 MG TABCR 1200 MG PO ×2 (09:06→22:03)
[2020-08-16] MEDS: ASPIRIN 81 MG CHEWABLE TABLET FEED TUBE (09:06)
[2020-08-16] MEDS: BENZOCAINE/MENTHOL (*BKC) 18 EA LOZENGE 1 LOZENGE PO ×3 (09:07→14:55)
[2020-08-16 09:43] LABS: Hemoglobin 8.4 g/dL (14.0-18.0); Mean Corpuscular Hemoglobin 22.8 pg (26-34); Mean Corpuscular Volume 76.1 fl (80-100); Mean Platelet Volume 10.6 fl (7.4-10.4); Platelet Count Result 304 k/mm3 (150-375); Red Blood Count 3.68 M/mm3 (4.6-6.20); Red Cell Distribution Width 22.7 % (11.5-14.5); White Blood Count 16.8 K/mm3 (4.5-10.0)
[2020-08-16] MEDS: polyethylene glycoL 3350 17 GM POWD.PACK PO (10:11)
[2020-08-16] MEDS: CENTRAL LINE FLUSH 10 ML IV PUSH ×3 (10:11→22:03)
--- NOTE | 2020-08-16 12:07 | PCPTNOTE ---
pt refused PT- stated I'm not doing therapy at all while I'm here
--- NOTE | 2020-08-16 13:30 | PCNFU ---
Nutrition Follow-Up Complete: Suboptimal oral intake related to decreased appetite as evidenced by average intake of 20% of meals with poor intake reported on admission. Goal: Patient to consume 50% of meals and supplements or greater. Limited progress towards goal. We will continue current goal. Pt current nutrition is Minced and Moist, Level 5 with Mildly Thick Liquids, Level 2. Nutrition recommendation:Agree Last recorded weight is 63.3 kg. Bowel Motility:Last reported BM 08/12 Labs Reviewed: Na 133,Alb 2.4 Meds Noted:Folic Acid, Thiamine, Miralax, Lovenox,Mucinex,Protonix Additional Notes: Nutrition follow up today. Poor oral intake reported-refusing meals and refusing therapy today. Ensure Compact remains on trays providing an additional 220 kcals and 9 gms protein. PO intake encouraged. Monitoring: Follow up in 3 days.
--- NOTE | 2020-08-16 14:35 | PCOTNOTE ---
Attempted to see patien this pm, however patient refused. Upon entering room, prior to introduction patient stated, I am not doing therapy today. I am not doing anything until I get home. I know my body, and I'm not doing it. I don't care what you say. Pt requested to be discharged from services.
--- NOTE | 2020-08-16 17:21 | PM.IMPN ---
Progress Note: A&P Assessment and Plan (1) Acute and chronic respiratory failure: Code(s): J96.20 - Acute and chronic respiratory failure, unspecified whether with hypoxia or hypercapnia Status: Acute Assessment and Plan: Patient requiring increasing O2 from baseline. ABG showing 7.45/37/57 on 15L HFNC. Currently at [facility] now. Did receive Lasix x2 (08/02, 08/03). Concern for aspiration now given his malnutrition with BMI 18 and obtunded state. Abx started. WBC higher again at 22K. Continue current management for COVID 19. NG tube placed and tolerating tube feedings. CXR reviewed showing no significant change. Wean O2 as tolerated back to baseline. Discussed with dtr. 08/16/20 17:21 patient is 74-year-old male with a history of polycythemia vera chronic respiratory failure secondary to COPD and alcohol abuse, patient was recently discharged from the hospital after he was treated for encephalopathy and discharged on July 18, his family brought to emergency department on July 29 with complaint of cough shortness of breath shaking, he was found to new onset atrial fibrillation he was started on diltiazem drip, he was tested COVID-19 and was positive, currently patient he is on high-flow oxygen, he is off diltiazem drip and on oral diltiazem rate is controlled, seen by Cardiology, had a cardiac echo showed ejection fraction of 55% and dialysate dysfunction and moderate pulmonary hypertension, patient continued to require high-flow oxygen he has completed course of remdesivir and being treated with dexamethasone patient is seen by remarketing manager we will continue to monitor. on 08/[address] Matos patient was more alert and wake, , on 08/08 he had pulled out his NG tube and had swallow study he passed and now on he is on nector thick diet, he was clinically improving and his oxygen requirement was improving he was transferred out of ICU on 08/11, today on 08/13 patient is seen in the room he is laying down, he wearing [facility], he wants to go home, patient still requiring high flow oxygen, today patient is more calm and cooperative, patient has completed his Remdesivir and Dexamethasone, 08/15 patient is still requiring high oxygen will continue abx for another 3 days, today 08/16 patient has decided to go into hospice, his daughter met with hospice and decided tomorrow on the will take the patient under hospice care. will continue present management and try to wean patient off oxygen. __ (2) Pneumonia due to COVID-19 virus: Code(s): U07.1 - COVID-19; J12.89 - Other viral pneumonia Status: Acute Assessment and Plan: Sx began on 07/28 and tested positive 07/29. Has chronic O2 requirement but worsened due to COVID-19. Dexamethasone started on 08/01/20 (Day 6). Remdesivir started on 08/01/20 and completed 5 Day course. Continue supportive care. (3) Atrial fibrillation with RVR: Code(s): I48.91 - Unspecified atrial fibrillation Status: Acute Assessment and Plan: Appears to be new onset atrial fibrillation with rapid ventricular response. Echo showing EF 55-60% with normal diastolic function. Moderate pulmonary HTN noted as well (48mmHg). 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 Converted to NSR but appears to be in/out of AFib. Patient being transitioned to Cardizem via NG tube. He has metoprolol IV as needed for tachycardia (last dose 08/03). Appreciate Cardiology input. Anticoagulation on hold. (4) Acute encephalopathy: Code(s): G93.40 - Encephalopathy, unspecified Status: Acute Assessment and Plan: Patient with altered mental status most likely related to COVID and acute hypoxia. Slightly better. No focal weakness but will need CT brain when able. (5) Elevated troponin: C
[2020-08-16] MEDS: HYDROcodone/acetaminophen (*CRX) 7.5-325 MG TABLET 1 TAB PO (21:59)
[2020-08-16] MEDS: ENOXAPARIN 40 MG/0.4 ML SYRINGE SUB-Q (22:02)
[2020-08-17] VITALS (12 sets, daily range): BP systolic 119–130; BP diastolic 72–79; PULSE 61–77; RESP 18–20; TEMP 36.6–36.8; O2SAT 90–96
[2020-08-17] MEDS: dilTIAZem HCL 60 MG TABLET PO ×3 (00:09→12:10)
[2020-08-17] MEDS: BENZOCAINE/MENTHOL (*BKC) 18 EA LOZENGE 1 LOZENGE PO ×3 (00:11→08:45)
[2020-08-17] MEDS: LEVALBUTEROL NEB 1.25 MG/3 ML 0.63 MG INHALATION ×3 (02:36→14:57)
[2020-08-17] MEDS: FOLIC ACID 1 MG TABLET FEED TUBE (08:45)
[2020-08-17] MEDS: BENZONATATE 100 MG CAPSULE 200 MG PO ×2 (08:45→12:10)
[2020-08-17] MEDS: polyethylene glycoL 3350 17 GM POWD.PACK PO (08:45)
[2020-08-17] MEDS: ASPIRIN 81 MG CHEWABLE TABLET FEED TUBE (08:45)
[2020-08-17] MEDS: guaiFENesin 12 HR 600 MG TABCR 1200 MG PO (08:45)
[2020-08-17] MEDS: THIAMINE HCL 200 MG/2 ML VIAL 100 MG IV PUSH (08:45)
[2020-08-17] MEDS: PANTOPRAZOLE SODIUM IV 40 MG VIAL IV PUSH (08:46)
[2020-08-17] MEDS: HYDROcodone/acetaminophen (*CRX) 7.5-325 MG TABLET 1 TAB PO (08:52)
[2020-08-17] MEDS: FLUTICASONE/SALMETEROL 45-21 MCG INHALER 1 PUFF 2 PUFF INHALATION (08:55)
[2020-08-17 09:21] LABS: Hematocrit 27.6 % (42.0-52.0); Hemoglobin 8.2 g/dL (14.0-18.0); Mean Corpuscular HGB Conc 29.7 g/dl (32-36); Mean Corpuscular Hemoglobin 22.5 pg (26-34); Mean Corpuscular Volume 75.8 fl (80-100); Mean Platelet Volume 10.3 fl (7.4-10.4); Platelet Count Result 298 k/mm3 (150-375); Red Blood Count 3.64 M/mm3 (4.6-6.20); Red Cell Distribution Width 22.9 % (11.5-14.5); White Blood Count 15.2 K/mm3 (4.5-10.0)
[2020-08-17 09:37] LABS: Alanine Aminotransferase 22 U/L (4-50); Albumin Level 2.7 g/dL (3.5-5.1); Alkaline Phosphatase 82 U/L (38-126); Anion Gap 7 mmol/L (8-16); Aspartate Amino Transferase 24 U/L (17-59); Bilirubin,Total 0.6 mg/dL (0.2-1.3); Blood Urea Nitrogen 18 mg/dL (9-20); Carbon Dioxide 23 mmol/L (22-30); Chloride 105 mmol/L (98-107); Estimated CRCL calculation 69 ml/min; Estimated Glomerular Filt Rate > 60; Glucose 82 mg/dL (75-110); Potassium 3.6 mmol/L (3.4-5.0); Sodium 135 mmol/L (137-145)
[2020-08-17] MEDS: CENTRAL LINE FLUSH 10 ML IV PUSH ×2 (10:01→14:26)
--- NOTE | 2020-08-17 11:52 | PCPTNOTE ---
Patient refused treatment stating I quit therapy! I am not doing therapy! I am going home at 3:00 today.
[2020-08-17] MEDS: NEOMYCIN/POLYMYXIN/BACITRACIN OINTMENT PACKET 1 PACKET TOPICAL (14:26)
--- NOTE | 2020-09-13 18:05 | PM.DS ---
DS: Admitting Diagnosis Admitting Diagnosis Admitting Diagnosis: Acute on chronic respiratory failure, Fever DS: Discharge Diagnosis Discharge Diagnosis (1) Acute and chronic respiratory failure: Code(s): J96.20 - Acute and chronic respiratory failure, unspecified whether with hypoxia or hypercapnia Status: Acute Assessment and Plan: Patient requiring increasing O2 from baseline. ABG showing 7.45/37/57 on 15L HFNC. Currently at [facility] now. Did receive Lasix x2 (08/02, 08/03). Concern for aspiration now given his malnutrition with BMI 18 and obtunded state. Abx started. WBC higher again at 22K. Continue current management for COVID 19. NG tube placed and tolerating tube feedings. CXR reviewed showing no significant change. Wean O2 as tolerated back to baseline. Discussed with dtr. 08/16/20 17:21 patient is 74-year-old male with a history of polycythemia vera chronic respiratory failure secondary to COPD and alcohol abuse, patient was recently discharged from the hospital after he was treated for encephalopathy and discharged on July 18, his family brought to emergency department on July 29 with complaint of cough shortness of breath shaking, he was found to new onset atrial fibrillation he was started on diltiazem drip, he was tested COVID-19 and was positive, currently patient he is on high-flow oxygen, he is off diltiazem drip and on oral diltiazem rate is controlled, seen by Cardiology, had a cardiac echo showed ejection fraction of 55% and dialysate dysfunction and moderate pulmonary hypertension, patient continued to require high-flow oxygen he has completed course of remdesivir and being treated with dexamethasone patient is seen by mission planner we will continue to monitor. on 08/[address] Matos patient was more alert and wake, , on 08/08 he had pulled out his NG tube and had swallow study he passed and now on he is on nector thick diet, he was clinically improving and his oxygen requirement was improving he was transferred out of ICU on 08/11, today on 08/13 patient is seen in the room he is laying down, he wearing [facility], he wants to go home, patient still requiring high flow oxygen, today patient is more calm and cooperative, patient has completed his Remdesivir and Dexamethasone, 08/15 patient is still requiring high oxygen will continue abx for another 3 days, today 08/16 patient has decided to go into hospice, his daughter met with hospice and decided tomorrow on the will take the patient under hospice care. will continue present management and try to wean patient off oxygen. __ (2) Pneumonia due to COVID-19 virus: Code(s): U07.1 - COVID-19; J12.89 - Other viral pneumonia Status: Acute Assessment and Plan: Sx began on 07/28 and tested positive 07/29. Has chronic O2 requirement but worsened due to COVID-19. Dexamethasone started on 08/01/20 (Day 6). Remdesivir started on 08/01/20 and completed 5 Day course. Continue supportive care. (3) Atrial fibrillation with RVR: Code(s): I48.91 - Unspecified atrial fibrillation Status: Acute Assessment and Plan: Appears to be new onset atrial fibrillation with rapid ventricular response. Echo showing EF 55-60% with normal diastolic function. Moderate pulmonary HTN noted as well (48mmHg). 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 Converted to NSR but appears to be in/out of AFib. Patient being transitioned to Cardizem via NG tube. He has metoprolol IV as needed for tachycardia (last dose 08/03). Appreciate Cardiology input. Anticoagulation on hold. (4) Acute encephalopathy: Code(s): G93.40 - Encephalopathy, unspecified Status: Acute Assessment and Plan: Patient with altered mental status most likely related to COVID and acut
== END 2020-08-17 19:35 | disposition hospice, home (50) | DRG 177 ==
LOC: ANHED 22:44 → ANHICU 07-30 01:12 → ANH3MEDSUR 08-12 22:43 → ANHICU 08-18 11:53
PROVIDERS: Family Medicine; Hospitalist; Internal Medicine; Admitting Provider Family Medicine; Emergency Provider Emergency Medicine; Visit Provider Internal Medicine
DX: U07.1 COVID-19 (principal); J12.89 Other viral pneumonia; J96.21 Acute and chronic respiratory failure with hypoxia; G93.41 Metabolic encephalopathy; J44.1 Chronic obstructive pulmonary disease with (acute) exacerbation; J44.0 Chronic obstructive pulmonary disease with (acute) lower respiratory infection; F10.139 Alcohol abuse with withdrawal, unspecified; E46 Unspecified protein-calorie malnutrition; Z68.1 Body mass index [BMI] 19.9 or less, adult; I48.91 Unspecified atrial fibrillation; I27.20 Pulmonary hypertension, unspecified; K21.9 Gastro-esophageal reflux disease without esophagitis; E87.8 Other disorders of electrolyte and fluid balance, not elsewhere classified; D45 Polycythemia vera; N40.0 Benign prostatic hyperplasia without lower urinary tract symptoms; F17.210 Nicotine dependence, cigarettes, uncomplicated; R79.89 Other specified abnormal findings of blood chemistry; D50.9 Iron deficiency anemia, unspecified; Z99.81 Dependence on supplemental oxygen; Z66 Do not resuscitate
CPT/HCPCS: 36415; 36569; 36600; 70450; 71045; 80048; 80053; 80076; 80202; 81001; 82140; 82375; 82728; 82805; 83050; 83540; 83550; 83605; 83615; 83735; 83880; 84100; 84439; 84443; 84460; 84480; 84484; 85014; 85018; 85025; 85027; 85055; 85380; 85610; 85730; 86140; 86850; 86900; 86901; 87040; 87086; 87635; 92523; 92610; 93005; 93306; 94640; 96361; 96374; 97110; 97116; 97162; 97166; 97530; 97535; 99291; A9270; C1751; C9113; C9803; J0131; J1100; J1650; J1940; J2060; J2543; J2930; J3370; J3411; J3480; J7030; J7040; J7050; J7120; U0003